=== PATIENT | female | born 1970 | race Caucasian/White ===

== ENCOUNTER 2019-09-20 04:04 | Inpatient (IN) | payer SELFPAY ==
[2019-09-20] VITALS (12 sets, daily range): BP systolic 105–193; BP diastolic 67–102
[~2019-09-20] VITALS: Ht 154.9 cm; Wt 68.0 kg
[~2019-09-20 04:04] MED LIST: IV NORMAL SALINE 1000ML BAG 1,000 ML IV ONE; MORPHINE SULFATE 2 MG/ML VIAL. IVP ONE; ONDANSETRON PF 4 MG/2 ML VIAL. IVP ONE
[2019-09-20] MEDS ORDERED: LIDOCAINE 1% Multi-Dose 20 ML VIAL. ONE (05:06)
[2019-09-20] MEDS ORDERED: ONDANSETRON PF 4 MG/2 ML VIAL. ONE ×2 (05:06→08:29)
[2019-09-20] MEDS ORDERED: MORPHINE SULFATE 4 MG/ML VIAL. ONE (05:07)
[2019-09-20] MEDS ORDERED: 0.9 % SOD CHL for STERILE FIELD 10 ML DISP.SYRIN. ONE (05:19)
[2019-09-20] MEDS ORDERED: LIDOCAINE 2% PF 5 ML VIAL. ONE (06:58)
[2019-09-20] MEDS ORDERED: PROPOFOL 20 ML IV ONE (06:58)
[2019-09-20] MEDS ORDERED: fentaNYL PF VIAL 100 MCG/2 ML VIAL ONE (06:59)
[2019-09-20] MEDS ORDERED: ceFAZolin SODIUM IV Push 1 GM VIAL. IVP ONE ×2 (07:52→08:00)
[2019-09-20] MEDS ORDERED: SEVOFLURANE 31 TO 60 MINUTES. IH ONE (07:52)
[2019-09-20] MEDS ORDERED: DEXAMETHASONE SOD PHOS 4 MG/ML VIAL ONE (07:54)
[2019-09-20] MEDS ORDERED: PHENYLEPHRINE in 0.9% NACL PF 1 MG/10 ML SYRINGE. IV ONE (07:58)
[2019-09-20] MEDS ORDERED: MULTIVIT INFUSN,ADULT 4,VIT K 10 ML, THIAMINE INJ 100 MG, FOLIC ACID INJ 1 MG in IV NOR... IV ONE (08:00)
[2019-09-20] MEDS ORDERED: HYDROmorphone 2 MG/ML VIAL ONE (08:28)
--- NOTE | 2019-09-20 09:30 | NUR ---
notified of high CIWA score. Orders given.
--- NOTE | 2019-09-20 09:45 | NUR ---
Patient not able to stay awake long enough to answer any of my questions or doctor's questions.
[2019-09-20 14:03] LABS: ALBUMIN 3.2 g/dL (3.4-5.0); CALCIUM 8.4 mg/dL (8.5-10.1)
[2019-09-20 14:04] LABS: CREATININE 1.2 mg/dL (0.6-1.0); DIRECT BILIRUBIN 0.1 mg/dL (0.0-0.2); GFR 47.7; POTASSIUM 3.6 mmol/L (3.5-5.1); TOTAL BILIRUBIN 0.4 mg/dL (0.2-1.0)
[2019-09-20 14:05] LABS: TOTAL PROTEIN 6.6 g/dL (6.4-8.2)
[2019-09-20 14:05] LABS: HEMATOCRIT 51.7 % (36.0-47.0); HEMOGLOBIN 17.5 g/dL (12.0-15.5); WHITE BLOOD COUNT 13.5 x10^3/uL (4.0-11.0)
[2019-09-20 14:06] LABS: BASO % 0 % (0-3); EOS % 0 % (0-3); LYMPH # 0.9 x10^3/uL (1.0-4.8); LYMPH % 7 % (24-48); MEAN CORPUSCULAR HEMOGLOBIN 31 pg (25-35); MEAN CORPUSCULAR HGB CONC 34 g/dL (31-37); MEAN CORPUSCULAR VOLUME 92 fL (79-100); MONO % 8 % (0-9); NEUT # 11.5 x10^3/uL (1.8-7.7); NEUT % 86 % (31-73); PLATELET COUNT 280 x10^3/uL (140-400); RED CELL DISTRIBUTION WIDTH 13.3 % (11.5-14.5)
[2019-09-20 14:07] LABS: D-DIMER 2.3 ug/mlFEU (0.00-0.50); PROTHROMBIN TIME PATIENT 13.1 SEC (11.7-14.0)
--- NOTE | 2019-09-20 14:09 | RAD ---
EXAM: Head CT without contrast. HISTORY: Fall. Loss of consciousness. TECHNIQUE: Computed tomographic images of the head were obtained without contrast. *One or more of the following individualized dose reduction techniques were utilized for this examination: 1. Automated exposure control. 2. Adjustment of the mA and/or kV according to patient size. 3. Use of iterative reconstruction technique. COMPARISON: None. FINDINGS: There is a tiny focus of hyperdensity within the right frontoparietal white matter which is likely artifactual. The imaging appearance does not favor acute hemorrhage. There is a chronic appearing left lamina appreciable fracture. The orbits and paranasal sinuses are otherwise unremarkable. The mastoid air cells are clear. The kruse-white matter differential pattern is intact. IMPRESSION: No convincing acute intracranial finding. Electronically signed by: Mary Anne Ibarra MD (09/20/2019 2:06 PM) [facility] [place]
--- NOTE | 2019-09-20 14:30 | RAD ---
EXAM: Right lower extremity venous Doppler sonogram. HISTORY: Pain and swelling. TECHNIQUE: Moe scale and color Doppler sonographic evaluation of the right lower extremity veins with spectral waveform analysis was performed. FINDINGS: There is normal color flow, normal compressibility and there are normal spectral waveforms in the common femoral, superficial femoral, popliteal, posterior tibial and greater saphenous veins. The peroneal veins are not well seen due to soft tissue edema. IMPRESSION: No Doppler evidence of lower extremity deep venous thrombosis. Electronically signed by: Mary Anne Ibarra MD (09/20/2019 2:27 PM) [facility] – [place], [place]
[2019-09-20] MEDS ORDERED: MORPHINE SULFATE 2 MG/ML VIAL. IV PRN (14:45)
[2019-09-20] MEDS ORDERED: IV NORMAL SALINE 1000ML BAG 1,000 ML IV ONE (14:45)
[2019-09-20] MEDS ORDERED: HALOPERIDOL LACTATE 5 MG/ML VIAL. IVP PRN (14:45)
[2019-09-20] MEDS ORDERED: LORazepam 1 MG TABLET PO PRN ×2 (14:45)
[2019-09-20] MEDS ORDERED: ACETAMINOPHEN 500 MG TABLET PO PRN ×2 (14:45)
[2019-09-20] MEDS ORDERED: ONDANSETRON PF 4 MG/2 ML VIAL. IVP PRN ×2 (14:45)
[2019-09-20] MEDS ORDERED: cloNIDine HCL 0.1 MG TABLET PO PRN (14:45)
[2019-09-20] MEDS ORDERED: diphenhydrAMINE 50 MG/ML VIAL IVP PRN ×2 (14:45)
--- NOTE | 2019-09-20 14:45 | RAD ---
EXAM: Right lower extremity arterial Doppler sonogram. HISTORY: Pain and swelling. TECHNIQUE: Moe scale and color Doppler sonographic evaluation of the right lower extremity arteries with spectral waveform analysis was performed. FINDINGS: There are biphasic and triphasic waveforms throughout the right lower extremity arteries, with exception of a monophasic waveform within the dorsalis pedis artery. There are normal peak systolic velocities throughout the lower extremity arteries. No occlusion is seen. IMPRESSION: Abnormal monophasic waveform within the right dorsalis pedis artery. This can be seen with hemodynamically significant proximal stenosis. No arterial occlusion is seen. Electronically signed by: Mary Anne Ibarra MD (09/20/2019 2:43 PM) [facility] [place]
--- NOTE | 2019-09-20 14:53 | RAD ---
EXAM: Chest, single view. HISTORY: Fall. COMPARISON: None. FINDINGS: A frontal view of the chest is obtained. There is no infiltrate, pleural effusion or pneumothorax. The heart is normal in size. IMPRESSION: No acute pulmonary finding. Electronically signed by: Mary Anne Ibarra MD (09/20/2019 2:50 PM) [facility] [place]
--- NOTE | 2019-09-20 14:54 | RAD ---
EXAM: Left hip, 2 views. HISTORY: Fall. COMPARISON: None. FINDINGS: 2 views of the left hip are obtained. There is no fracture, dislocation or subluxation. The femoral head is normal in consideration. There is a tiny os acetabulum. IMPRESSION: No acute osseous finding. Electronically signed by: Mary Anne Ibarra MD (09/20/2019 2:51 PM) [facility] – [place]
--- NOTE | 2019-09-20 14:56 | RAD ---
EXAM: Right tibia and fibula, 2 views; right ankle, 3 views. HISTORY: Fall. COMPARISON: None. FINDINGS: 2 views of the right tibia and fibula and 3 views of the right ankle are obtained. There is diffuse lateral predominant ankle soft tissue swelling. No fracture is seen. The ankle mortise is intact. There is no osteochondral lesion. IMPRESSION: Lateral predominant ankle soft tissue swelling. No acute osseous finding. Electronically signed by: Mary Anne Ibarra MD (09/20/2019 2:53 PM) [facility] [place]
--- NOTE | 2019-09-20 14:56 | RAD ---
EXAM: Right tibia and fibula, 2 views; right ankle, 3 views. HISTORY: Fall. COMPARISON: None. FINDINGS: 2 views of the right tibia and fibula and 3 views of the right ankle are obtained. There is diffuse lateral predominant ankle soft tissue swelling. No fracture is seen. The ankle mortise is intact. There is no osteochondral lesion. IMPRESSION: Lateral predominant ankle soft tissue swelling. No acute osseous finding. Electronically signed by: Mary Anne Ibarra MD (09/20/2019 2:53 PM) [facility] [place]
[2019-09-20] MEDS: IV NORMAL SALINE 1000ML BAG 1,000 ML IV SCH (15:00)
[2019-09-20] MEDS: MORPHINE SULFATE 2 MG/ML VIAL. IVP PRN (16:30)
--- NOTE | 2019-09-20 17:00 | NUR ---
Patient did wake up enough to eat a little, but asked for pain medication and immediately after pain medication could not stay awake long enough to answer admission questions. Clinical assessment can be done, but not subjective assessment.
--- NOTE | 2019-09-20 19:16 | NUR ---
Patient is now awake and talking on the phone. Night nurse said she would be willing to ask the admission questions we could not get answered earlier.
--- NOTE | 2019-09-20 22:02 | PDOC ---
PROGRESS NOTES Subjective Subjective Problems overnight: Much more awake and alert a few hours postoperatively. Pain reasonably controlled she does have some right leg soreness, no other complaints Objective Vital Signs Vital Signs Date Time Temp Pulse Resp B/P (MAP) Pulse Ox O2 Delivery O2 Flow Rate FiO2 09/20/19 19:00 97.7 94 16 105/67 (80) 95 97.7 09/20/19 17:00 Room Air 09/20/19 08:40 8 Physical Exam On examination her dressing from the lateral 4 compartment fasciotomy is clean dry intact compartments are soft to palpation. She cannot actively dorsiflex her foot. Sensation is significantly diminished to the first dorsal webspace but appears intact elsewhere on the foot distal pulses are palpable Labs Laboratory Tests Test 09/20/19 05:30 09/20/19 06:00 Sodium Level 137 mmol/L (136-145) Potassium Level 3.6 mmol/L (3.5-5.1) Chloride Level 102 mmol/L (98-107) Carbon Dioxide Level 23 mmol/L (21-32) Anion Gap 12 (6-14) Blood Urea Nitrogen 31 mg/dL (7-20) Creatinine 1.2 mg/dL (0.6-1.0) Estimated GFR (Cockcroft-Gault) 47.7 Glucose Level 129 mg/dL (70-99) Lactic Acid Level 2.6 mmol/L (0.4-2.0) Calcium Level 8.4 mg/dL (8.5-10.1) Total Bilirubin 0.4 mg/dL (0.2-1.0) Direct Bilirubin 0.1 mg/dL (0.0-0.2) Aspartate Amino Transf (AST/SGOT) 1943 U/L (15-37) Alanine Aminotransferase (ALT/SGPT) 495 U/L (14-59) Alkaline Phosphatase 129 U/L (46-116) Creatine Kinase 37331 U/L (26-192) Total Protein 6.6 g/dL (6.4-8.2) Albumin 3.2 g/dL (3.4-5.0) White Blood Count 13.5 x10^3/uL (4.0-11.0) Red Blood Count 5.60 x10^6/uL (3.50-5.40) Hemoglobin 17.5 g/dL (12.0-15.5) Hematocrit 51.7 % (36.0-47.0) Mean Corpuscular Volume 92 fL (79-100) Mean Corpuscular Hemoglobin 31 pg (25-35) Mean Corpuscular Hemoglobin Concent 34 g/dL (31-37) Red Cell Distribution Width 13.3 % (11.5-14.5) Platelet Count 280 x10^3/uL (140-400) Neutrophils (%) (Auto) 86 % (31-73) Lymphocytes (%) (Auto) 7 % (24-48) Monocytes (%) (Auto) 8 % (0-9) Eosinophils (%) (Auto) 0 % (0-3) Basophils (%) (Auto) 0 % (0-3) Neutrophils # (Auto) 11.5 x10^3/uL (1.8-7.7) Lymphocytes # (Auto) 0.9 x10^3/uL (1.0-4.8) Monocytes # (Auto) 1.0 x10^3/uL (0.0-1.1) Eosinophils # (Auto) 0.0 x10^3/uL (0.0-0.7) Basophils # (Auto) 0.0 x10^3/uL (0.0-0.2) Prothrombin Time 13.1 SEC (11.7-14.0) Prothromb Time International Ratio 1.0 (0.8-1.1) Activated Partial Thromboplast Time 33 SEC (24-38) D-Dimer (Flavia) 2.30 ug/mlFEU (0.00-0.50) Laboratory Tests Test 09/20/19 05:30 09/20/19 06:00 Sodium Level 137 mmol/L (136-145) Potassium Level 3.6 mmol/L (3.5-5.1) Chloride Level 102 mmol/L (98-107) Carbon Dioxide Level 23 mmol/L (21-32) Anion Gap 12 (6-14) Blood Urea Nitrogen 31 mg/dL (7-20) Creatinine 1.2 mg/dL (0.6-1.0) Estimated GFR (Cockcroft-Gault) 47.7 Glucose Level 129 mg/dL (70-99) Lactic Acid Level 2.6 mmol/L (0.4-2.0) Calcium Level 8.4 mg/dL (8.5-10.1) Total Bilirubin 0.4 mg/dL (0.2-1.0) Direct Bilirubin 0.1 mg/dL (0.0-0.2) Aspartate Amino Transf (AST/SGOT) 1943 U/L (15-37) Alanine Aminotransferase (ALT/SGPT) 495 U/L (14-59) Alkaline Phosphatase 129 U/L (46-116) Creatine Kinase 12771 U/L (26-192) Total Protein 6.6 g/dL (6.4-8.2) Albumin 3.2 g/dL (3.4-5.0) White Blood Count 13.5 x10^3/uL (4.0-11.0) Red Blood Count 5.60 x10^6/uL (3.50-5.40) Hemoglobin 17.5 g/dL (12.0-15.5) Hematocrit 51.7 % (36.0-47.0) Mean Corpuscular Volume 92 fL (79-100) Mean Corpuscular Hemoglobin 31 pg (25-35) Mean Corpuscular Hemoglobin Concent 34 g/dL (31-37) Red Cell Distribution Width 13.3 % (11.5-14.5) Platelet Count 280 x10^3/uL (140-400) Neutrophils (%) (Auto) 86 % (31-73) Lymphocytes (%) (Auto) 7 % (24-48) Monocytes (%) (Auto) 8 % (0-9) Eosinophils (%) (Auto) 0 % (0-3) Basophils (%) (Auto) 0 % (0-3) Neutrophils # (Auto) 11.5 x10^3/uL (1.8-7.7) Lymphocytes # (Auto) 0.9 x10^3/uL (1.0-4.8) Monocytes # (Auto) 1.0 x10^3/uL (0.0-1.1) Eosinophils # (Auto) 0.0 x10^3/uL (0.0-0.7) Basophils # (Auto) 0.0 x10^3/uL (0.0-0.2) Prothrombin Time 13.1 SEC (11.7-14.0) Prothromb Time International Ratio 1.0 (0.8-1.1) Activated Partial Thromboplast Time 33 SEC (24-38) D-Dimer (Flavia) 2.30 ug/mlFEU (0.00-0.50) Assessment Assessment POD# 0 right leg fasciotomy for compartment syndrome Plan Plan of Care Medical management per hospitalist. I had put her on 120 mL/h IV fluid and ordered CPK to manage her clinical rhabdomyolysis earlier handing that off to the hospitalist. I did talk with the patient about the fact that her nerve could be compromised with the significant pressure on it that muscle looked reasonably good after the release and that we will have to watch and see in terms of her nerve function returning and also possibly that she may need a skin graft as the swelling continues to resolve and may need an ankle foot orthosis for support temporarily or potentially permanently if she has ongoing peroneal nerve deficit as is present currently TIMUR VIEIRA MD Sep 20, 2019 22:01
--- NOTE | 2019-09-20 22:55 | CONS ---
DATE OF CONSULTATION: 09/20/2019 PREOPERATIVE EVALUATION ORTHOPEDIC CONSULTATION CHIEF COMPLAINT: Right leg pain and swelling. HISTORY OF PRESENT ILLNESS: Dictation ends here. TIMUR VIEIRA MD DR: TISH/leodan JOB#: [id number] / [id number]
[2019-09-21] MEDS: IV NORMAL SALINE 1000ML BAG 1,000 ML IV SCH (00:40)
[2019-09-21] MEDS: MORPHINE SULFATE 2 MG/ML VIAL. IVP PRN ×3 (00:41→12:10)
[2019-09-21 03:00] VITALS: BP 141/79
[2019-09-21 07:59] VITALS: BP 161/80
[2019-09-21] MEDS ORDERED: MULTIVIT INFUSN,ADULT 4,VIT K 10 ML, THIAMINE INJ 100 MG, FOLIC ACID INJ 1 MG in IV NOR... IV SCH (09:00)
[2019-09-21] MEDS: MULTIVIT INFUSN,ADULT 4,VIT K 10 ML, THIAMINE INJ 100 MG, FOLIC ACID INJ 1 MG in IV NOR... IV SCH (09:50)
--- NOTE | 2019-09-21 09:52 | PDOC ---
PROGRESS NOTES Subjective Subjective Problems overnight: Pain is not as bad as when she came in with her right leg. Feels like she should be able to move the foot but cannot dorsiflex. Leg is elevated and has some swelling Objective Vital Signs Vital Signs Date Time Temp Pulse Resp B/P (MAP) Pulse Ox O2 Delivery O2 Flow Rate FiO2 09/21/19 07:59 98.4 80 20 161/80 (107) 99 Room Air 98.4 09/20/19 20:00 8.0 Physical Exam On examination peroneal nerve motor function is absent she reports slight sensation but mostly paresthesia over the first dorsal webspace sensation is otherwise intact to the foot medially laterally and plantarly. Compartments are soft calf remains swollen along with the right foot but distal pulses are palpable Labs Laboratory Tests Test 09/20/19 05:30 09/20/19 06:00 Sodium Level 137 mmol/L (136-145) Potassium Level 3.6 mmol/L (3.5-5.1) Chloride Level 102 mmol/L (98-107) Carbon Dioxide Level 23 mmol/L (21-32) Anion Gap 12 (6-14) Blood Urea Nitrogen 31 mg/dL (7-20) Creatinine 1.2 mg/dL (0.6-1.0) Estimated GFR (Cockcroft-Gault) 47.7 Glucose Level 129 mg/dL (70-99) Lactic Acid Level 2.6 mmol/L (0.4-2.0) Calcium Level 8.4 mg/dL (8.5-10.1) Total Bilirubin 0.4 mg/dL (0.2-1.0) Direct Bilirubin 0.1 mg/dL (0.0-0.2) Aspartate Amino Transf (AST/SGOT) 1943 U/L (15-37) Alanine Aminotransferase (ALT/SGPT) 495 U/L (14-59) Alkaline Phosphatase 129 U/L (46-116) Creatine Kinase 14049 U/L (26-192) Total Protein 6.6 g/dL (6.4-8.2) Albumin 3.2 g/dL (3.4-5.0) White Blood Count 13.5 x10^3/uL (4.0-11.0) Red Blood Count 5.60 x10^6/uL (3.50-5.40) Hemoglobin 17.5 g/dL (12.0-15.5) Hematocrit 51.7 % (36.0-47.0) Mean Corpuscular Volume 92 fL (79-100) Mean Corpuscular Hemoglobin 31 pg (25-35) Mean Corpuscular Hemoglobin Concent 34 g/dL (31-37) Red Cell Distribution Width 13.3 % (11.5-14.5) Platelet Count 280 x10^3/uL (140-400) Neutrophils (%) (Auto) 86 % (31-73) Lymphocytes (%) (Auto) 7 % (24-48) Monocytes (%) (Auto) 8 % (0-9) Eosinophils (%) (Auto) 0 % (0-3) Basophils (%) (Auto) 0 % (0-3) Neutrophils # (Auto) 11.5 x10^3/uL (1.8-7.7) Lymphocytes # (Auto) 0.9 x10^3/uL (1.0-4.8) Monocytes # (Auto) 1.0 x10^3/uL (0.0-1.1) Eosinophils # (Auto) 0.0 x10^3/uL (0.0-0.7) Basophils # (Auto) 0.0 x10^3/uL (0.0-0.2) Prothrombin Time 13.1 SEC (11.7-14.0) Prothromb Time International Ratio 1.0 (0.8-1.1) Activated Partial Thromboplast Time 33 SEC (24-38) D-Dimer (Flavia) 2.30 ug/mlFEU (0.00-0.50) Assessment Assessment POD# 1 fasciotomy of right leg for compartment syndrome Plan Plan of Care I reviewed with her that her peroneal nerve function appears to be absent side from slight reported sensation over the first dorsal webspace. That is somewhat questionable as she really didn't answered about feeling the area and comparison to the left foot until she looked up and saw me touching her foot. I explained that the anterior compartment of her leg was most involved with observably the most blanching of the muscle and given the unknown time frame and presentation it would not be unusual that she may have a peroneal deficit. This could be permanent or it could resolve over time and may take an extended period of time. The important thing is that the pressures off the area currently and that we keep the leg elevated with some gentle motion to keep swelling down. We can get her up and around with crutches and if she does not get prompt recovery from the peroneal nerve from her dropfoot she may need an ankle foot orthosis I also explained that often the surgical site has to be closed over with a skin graft and that is possible once her swelling resolves and medical condition otherwise allows TIMUR VIEIRA MD Sep 21, 2019 09:52
--- NOTE | 2019-09-21 10:30 | PDOC1 ---
History and Physical Date of Admission Date of Admission 09/20/2019 Identification/Chief Complaint Chief Complaint I fell Source Source: Chart review, Patient History of Present Illness History of Present Illness Patient is a 49 year old female with no past medical history who unfortunately abuses alcohol today comes after being found down for unkown time, She was found to have [place] [id number]. She was evaluated promptly by orthopedic who took the patient emergently to the [facility] for treatment of her compartment syndrome. Patient is seen postoperatively. The patient does note seem to be in acute distress. She is a very poor historian and is not providing much details about her condition. Plan of care discussed with vocational rehab consultant and with nursing staff. No headache no chest pain, no palpitations no nausea or vomiting. Current Medications Current Medications Current Medications Medications (Trade) Dose Ordered Sig/Kristofer Start Time Stop Time Status Last Admin Dose Admin Acetaminophen (Tylenol) 500 mg PRN Q6HRS PRN 09/20/19 14:45 UNV Clonidine HCl (Catapres) 0.1 mg PRN Q1HR PRN 09/20/19 14:45 09/20/19 16:30 0.1 MG Diphenhydramine HCl (Benadryl) 25 mg PRN Q15MIN PRN 09/20/19 14:45 UNV Folic Acid (Folic Acid) 1 mg DAILY 09/25/19 09:00 UNV Haloperidol Lactate (Haldol Inj) 5 mg PRN Q4HRS PRN 09/20/19 14:45 Lorazepam (Ativan Inj) 4 mg PRN Q1HR PRN 09/20/19 14:45 UNV Lorazepam (Ativan) 8 mg PRN Q1HR PRN 09/20/19 14:45 Morphine Sulfate (Morphine Sulfate) 2 mg ONCE ONCE 09/20/19 04:00 09/20/19 16:58 DC Multivitamins (Thera M Plus) 1 tab DAILY 09/25/19 09:00 UNV Multivitamins 10 ml/Thiamine HCl 100 mg/Folic Acid 1 mg/Sodium Chloride 1,011.2 ml @ 1,000.088 mls/hr 1X ONCE 09/20/19 08:00 09/20/19 16:59 DC 09/20/19 08:00 1,000.088 MLS/HR Ondansetron HCl (Zofran) 4 mg ONCE ONCE 09/20/19 04:00 09/20/19 16:58 DC Sodium Chloride 1,000 ml @ 1,000 mls/hr Q1H ONCE 09/20/19 04:00 09/20/19 16:58 DC Thiamine HCl 100 mg/Dextrose 51 ml @ 100 mls/hr DAILY 09/25/19 09:00 09/29/19 09:31 UNV Allergies Allergies Allergies Coded Allergies Type Severity Reaction Last Updated Verified No Known Drug Allergies 09/20/19 No ROS Review of System CONSTITUTIONAL: No fever or chills EYES: No recent changes SKIN: No rash or itching CARDIOVASCULAR: No chest pain, syncope, palpitations, or edema RESPIRATORY: No SOB or cough GASTROINTESTINAL: No nausea, vomiting or abdominal pain NEUROLOGICAL: No headaches or weakness ENDOCRINE: No cold or heat intolerance GENITOURINARY: No urgency or frequency of urination MUSCULOSKELETAL: No back pain or joint pain LYMPHATICS: No enlarged lymph nodes PSYCHIATRIC: No anxiety or depression Physical Exam Physical Exam GEN.: No apparent distress. Alert and oriented. HEENT: Head is normocephalic, atraumatic NECK: Supple. LUNGS: Clear to auscultation. HEART: RRR, S1, S2 present. Peripheral pulses intact ABDOMEN: Soft, nontender. Positive bowel sounds. EXTREMITIES: Without any cyanosis. NEUROLOGIC: Normal speech, normal tone PSYCHIATRIC: Normal affect, normal mood. SKIN: No ulcerations Vitals Vitals Vital Signs Date Time Temp Pulse Resp B/P (MAP) Pulse Ox O2 Delivery O2 Flow Rate FiO2 09/21/19 07:59 98.4 80 20 161/80 (107) 99 Room Air 98.4 09/20/19 20:00 8.0 Labs Labs Laboratory Tests Test 09/20/19 05:30 09/20/19 06:00 Sodium Level 137 mmol/L (136-145) Potassium Level 3.6 mmol/L (3.5-5.1) Chloride Level 102 mmol/L (98-107) Carbon Dioxide Level 23 mmol/L (21-32) Anion Gap 12 (6-14) Blood Urea Nitrogen 31 mg/dL (7-20) Creatinine 1.2 mg/dL (0.6-1.0) Estimated GFR (Cockcroft-Gault) 47.7 Glucose Level 129 mg/dL (70-99) Lactic Acid Level 2.6 mmol/L (0.4-2.0) Calcium Level 8.4 mg/dL (8.5-10.1) Total Bilirubin 0.4 mg/dL (0.2-1.0) Direct Bilirubin 0.1 mg/dL (0.0-0.2) Aspartate Amino Transf (AST/SGOT) 1943 U/L (15-37) Alanine Aminotransferase (ALT/SGPT) 495 U/L (14-59) Alkaline Phosphatase 129 U/L (46-116) Creatine Kinase 83871 U/L (26-192) Total Protein 6.6 g/dL (6.4-8.2) Albumin 3.2 g/dL (3.4-5.0) White Blood Count 13.5 x10^3/uL (4.0-11.0) Red Blood Count 5.60 x10^6/uL (3.50-5.40) Hemoglobin 17.5 g/dL (12.0-15.5) Hematocrit 51.7 % (36.0-47.0) Mean Corpuscular Volume 92 fL (79-100) Mean Corpuscular Hemoglobin 31 pg (25-35) Mean Corpuscular Hemoglobin Concent 34 g/dL (31-37) Red Cell Distribution Width 13.3 % (11.5-14.5) Platelet Count 280 x10^3/uL (140-400) Neutrophils (%) (Auto) 86 % (31-73) Lymphocytes (%) (Auto) 7 % (24-48) Monocytes (%) (Auto) 8 % (0-9) Eosinophils (%) (Auto) 0 % (0-3) Basophils (%) (Auto) 0 % (0-3) Neutrophils # (Auto) 11.5 x10^3/uL (1.8-7.7) Lymphocytes # (Auto) 0.9 x10^3/uL (1.0-4.8) Monocytes # (Auto) 1.0 x10^3/uL (0.0-1.1) Eosinophils # (Auto) 0.0 x10^3/uL (0.0-0.7) Basophils # (Auto) 0.0 x10^3/uL (0.0-0.2) Prothrombin Time 13.1 SEC (11.7-14.0) Prothromb Time International Ratio 1.0 (0.8-1.1) Activated Partial Thromboplast Time 33 SEC (24-38) D-Dimer (Flavia) 2.30 ug/mlFEU (0.00-0.50) VTE Prophylaxis Ordered VTE Prophylaxis Devices: No VTE Pharmacological Prophylaxi: Yes Assessment/Plan Assessment/Plan Compartment syndrome status post surgical decompression Alcohol abuse Leukoctosis secondary to hemoconcentration most likely Erythrocytosis secondary to severe dehydration Acute renal failure secondary to rhabdomyolisis Transaminitis. Shock liver? Lactic acidosis Plan: will provide bicarbonate drip for rhabdo may need nephro consult follow recommendations from ortho pain management CIWA protocol DVT prophylaxis: heparin when approved by vocational rehab consultant. Further recommendations based on clinical course. ISMAEL MILLER MD Sep 21, 2019 10:30
--- NOTE | 2019-09-21 10:51 | PDOC ---
PROGRESS NOTES Chief Complaint Chief Complaint Compartment syndrome status post surgical decompression Alcohol abuse disorder, concern for withdrawl, Leukoctosis Erythrocytosis from dehydration Acute renal failure secondary to rhabdomyolisis Transaminitis. poss rhabdo or etOH abuse, Lactic acidosis History of Present Illness History of Present Illness surgery went well with Dr. Shook yesterday, she will prob need skin graft mauro few days, cont IV fluid, check CK daily until close to 1999 follow recommendations from ortho pain management CIWA protocol DVT prophylaxis: heparin when approved by oim consultant. Further recommendations based on clinical course. Vitals Vitals Vital Signs Date Time Temp Pulse Resp B/P (MAP) Pulse Ox O2 Delivery O2 Flow Rate FiO2 09/21/19 07:59 98.4 80 20 161/80 (107) 99 Room Air 98.4 09/20/19 20:00 8.0 Physical Exam Physical Exam appears hung-over General: Alert, Oriented X3, Cooperative, mild distress Heart: Regular rate, Normal S1, Normal S2 Skin: No rashes, No breakdown Review of Systems Review of Systems lethagic, leg pain, some nausea, Comment Review of Relevant I have reviewed the following items jacob (where applicable) has been applied. Labs Laboratory Tests Test 09/20/19 05:30 09/20/19 06:00 Sodium Level 137 mmol/L (136-145) Potassium Level 3.6 mmol/L (3.5-5.1) Chloride Level 102 mmol/L (98-107) Carbon Dioxide Level 23 mmol/L (21-32) Anion Gap 12 (6-14) Blood Urea Nitrogen 31 mg/dL (7-20) Creatinine 1.2 mg/dL (0.6-1.0) Estimated GFR (Cockcroft-Gault) 47.7 Glucose Level 129 mg/dL (70-99) Lactic Acid Level 2.6 mmol/L (0.4-2.0) Calcium Level 8.4 mg/dL (8.5-10.1) Total Bilirubin 0.4 mg/dL (0.2-1.0) Direct Bilirubin 0.1 mg/dL (0.0-0.2) Aspartate Amino Transf (AST/SGOT) 1943 U/L (15-37) Alanine Aminotransferase (ALT/SGPT) 495 U/L (14-59) Alkaline Phosphatase 129 U/L (46-116) Creatine Kinase 03444 U/L (26-192) Total Protein 6.6 g/dL (6.4-8.2) Albumin 3.2 g/dL (3.4-5.0) White Blood Count 13.5 x10^3/uL (4.0-11.0) Red Blood Count 5.60 x10^6/uL (3.50-5.40) Hemoglobin 17.5 g/dL (12.0-15.5) Hematocrit 51.7 % (36.0-47.0) Mean Corpuscular Volume 92 fL (79-100) Mean Corpuscular Hemoglobin 31 pg (25-35) Mean Corpuscular Hemoglobin Concent 34 g/dL (31-37) Red Cell Distribution Width 13.3 % (11.5-14.5) Platelet Count 280 x10^3/uL (140-400) Neutrophils (%) (Auto) 86 % (31-73) Lymphocytes (%) (Auto) 7 % (24-48) Monocytes (%) (Auto) 8 % (0-9) Eosinophils (%) (Auto) 0 % (0-3) Basophils (%) (Auto) 0 % (0-3) Neutrophils # (Auto) 11.5 x10^3/uL (1.8-7.7) Lymphocytes # (Auto) 0.9 x10^3/uL (1.0-4.8) Monocytes # (Auto) 1.0 x10^3/uL (0.0-1.1) Eosinophils # (Auto) 0.0 x10^3/uL (0.0-0.7) Basophils # (Auto) 0.0 x10^3/uL (0.0-0.2) Prothrombin Time 13.1 SEC (11.7-14.0) Prothromb Time International Ratio 1.0 (0.8-1.1) Activated Partial Thromboplast Time 33 SEC (24-38) D-Dimer (Flavia) 2.30 ug/mlFEU (0.00-0.50) Medications Current Medications Morphine Sulfate (Morphine Sulfate) 2 mg PRN Q3HRS PRN IVP PAIN SEVERE Last administered on 09/21/19at 07:33; Start 09/20/19 at 14:45 Acetaminophen (Tylenol) 500 mg PRN Q6HRS PRN PO MILD PAIN / TEMP; Start 09/20/19 at 14:45 Ondansetron HCl (Zofran) 4 mg PRN Q6HRS PRN IVP NAUSEA/VOMITING; Start 09/20/19 at 14:45 Sodium Chloride 1,000 ml @ 125 mls/hr Q8H IV Last administered on 09/21/19at 00:40; Start 09/20/19 at 15:00; Stop 09/21/19 at 10:22; Status DC Multivitamins 10 ml/Thiamine HCl 100 mg/Folic Acid 1 mg/Sodium Chloride 1,011.2 ml @ 1,000.088 mls/hr DAILY IV Last administered on 09/21/19at 09:50; Start 09/21/19 at 09:00; Stop 09/25/19 at 10:01 Lorazepam (Ativan) 4 mg PRN Q1HR PRN PO For CIWA 8-14; Start 09/20/19 at 14:45 Lorazepam (Ativan) 8 mg PRN Q1HR PRN PO For CIWA 15 or greater; Start 09/20/19 at 14:45 Lorazepam (Ativan Inj) 2 mg PRN Q1HR PRN IV For CIWA 8-14 Last administered on 09/20/19at 16:30; Start 09/20/19 at 14:45 Lorazepam (Ativan Inj) 4 mg PRN Q1HR PRN IV For CIWA 15 or greater; Start 09/20/19 at 14:45 Haloperidol Lactate (Haldol Inj) 5 mg PRN Q4HRS PRN IVP Hallucinatns, Confusn,Delirium; Start 09/20/19 at 14:45 Diphenhydramine HCl (Benadryl) 25 mg PRN Q15MIN PRN IVP EPS symptoms 2'Haldol admin; Start 09/20/19 at 14:45 Clonidine HCl (Catapres) 0.1 mg PRN Q1HR PRN PO SBP > 180 or DBP > 100, MRX3 Last administered on 09/20/19at 16:30; Start 09/20/19 at 14:45 Lorazepam (Ativan Inj) 2 mg PRN Q15MIN PRN IV SEE COMMENTS; Start 09/20/19 at 14:45; Stop 09/21/19 at 10:46; Status DC Multivitamins 10 ml/Thiamine HCl 100 mg/Folic Acid 1 mg/Sodium Chloride 1,011.2 ml @ 100 mls/ hr DAILY IV ; Start 09/21/19 at 09:00; Stop 09/25/19 at 19:07; Status UNV Multivitamins (Thera M Plus) 1 tab DAILY PO ; Start 09/25/19 at 09:00; Status UNV Folic Acid (Folic Acid) 1 mg DAILY PO ; Start 09/25/19 at 09:00; Status UNV Thiamine HCl 100 mg/Dextrose 51 ml @ 100 mls/hr DAILY IV ; Start 09/25/19 at 09:00; Stop 09/29/19 at 09:31; Status UNV Lorazepam (Ativan Inj) 2 mg PRN Q1HR PRN IV For CIWA 8-14; Start 09/20/19 at 14:45; Status UNV Lorazepam (Ativan Inj) 4 mg PRN Q1HR PRN IV For CIWA 15 or greater; Start 09/20/19 at 14:45; Status UNV Diphenhydramine HCl (Benadryl) 25 mg PRN Q15MIN PRN IVP EPS symptoms 2'Haldol admin; Start 09/20/19 at 14:45; Status UNV Morphine Sulfate (Morphine Sulfate) 2 mg PRN Q3HRS PRN IV PAIN; Start 09/20/19 at 14:45; Status UNV Acetaminophen (Tylenol) 500 mg PRN Q6HRS PRN PO MILD PAIN / TEMP; Start 09/20/19 at 14:45; Status UNV Ondansetron HCl (Zofran) 4 mg PRN Q6HRS PRN IVP NAUSEA/VOMITING; Start 09/20/19 at 14:45; Status UNV Sodium Chloride 1,000 ml @ 125 mls/hr 1X ONCE IV ; Start 09/20/19 at 14:45; Stop 09/20/19 at 14:57; Status DC Multivitamins 10 ml/Thiamine HCl 100 mg/Folic Acid 1 mg/Sodium Chloride 1,011.2 ml @ 1,000.088 mls/hr 1X ONCE IV Last administered on 09/20/19at 08:00; Start 09/20/19 at 08:00; Stop 09/20/19 at 16:59; Status DC Morphine Sulfate (Morphine Sulfate) 2 mg ONCE ONCE IVP ; Start 09/20/19 at 04:00; Stop 09/20/19 at 16:58; Status DC Ondansetron HCl (Zofran) 4 mg ONCE ONCE IVP ; Start 09/20/19 at 04:00; Stop 09/20/19 at 16:58; Status DC Sodium Chloride 1,000 ml @ 1,000 mls/hr Q1H ONCE IV ; Start 09/20/19 at 04:00; Stop 09/20/19 at 16:58; Status DC Sodium Bicarbonate 150 meq/Sterile Water 1,150 ml @ 200 mls/hr Q5H45M IV ; Start 09/21/19 at 10:45 Oxycodone/ Acetaminophen (Percocet 5/325) 1 tab PRN Q4HRS PRN PO PAIN; Start 09/21/19 at 10:45 Vitals/I & O Vital Sign - Last 24 Hours 09/20/19 09/20/19 09/20/19 09/20/19 11:00 11:30 12:30 13:30 Pulse 70 72 79 84 B/P (MAP) 170/102 (124) 189/93 (125) 193/94 (127) 161/93 (115) Pulse Ox 98 97 97 96 O2 Delivery Room Air Room Air Room Air Room Air 09/20/19 09/20/19 09/20/19 09/20/19 15:00 16:30 16:30 17:00 Pulse 86 86 Resp 20 18 B/P (MAP) 146/78 (100) 189/93 Pulse Ox 96 O2 Delivery Room Air Room Air Room Air 09/20/19 09/20/19 09/20/19 09/21/19 19:00 20:00 23:00 00:41 Temp 97.7 98.0 97.7 98.0 Pulse 94 85 Resp 16 18 19 B/P (MAP) 105/67 (80) 130/77 (94) Pulse Ox 95 93 95 O2 Delivery Room Air Room Air O2 Flow Rate 8.0 09/21/19 09/21/19 09/21/19 09/21/19 01:32 03:00 07:33 07:51 Temp 98.5 98.5 Pulse 77 Resp 16 16 20 B/P (MAP) 141/79 (99) Pulse Ox 95 91 O2 Delivery Room Air Room Air Room Air 09/21/19 07:59 Temp 98.4 98.4 Pulse 80 Resp 20 B/P (MAP) 161/80 (107) Pulse Ox 99 O2 Delivery Room Air Intake and Output 09/20/19 09/20/19 09/21/19 15:00 23:00 07:00 Intake Total 360 ml 240 ml Output Total 10 ml 800 ml 200 ml Balance -10 ml -440 ml 40 ml TAI VENTURA MD Sep 21, 2019 10:51
[2019-09-21 11:59] VITALS: BP 149/76
[2019-09-21] MEDS: oxyCODONE/APAP 5/325 1 TAB TABLET PO PRN ×3 (12:10→23:21)
[2019-09-21] MEDS: SODIUM BICARBONATE VIAL 150 MEQ in IV STERILE WATER 1,000 ML IV SCH ×3 (12:11→23:20)
[2019-09-21 14:19] LABS: BASO % 0 % (0-3); EOS % 0 % (0-3); HEMATOCRIT 38.5 % (36.0-47.0); HEMOGLOBIN 13.1 g/dL (12.0-15.5); LYMPH # 1.2 x10^3/uL (1.0-4.8); LYMPH % 13 % (24-48); MEAN CORPUSCULAR HEMOGLOBIN 31 pg (25-35); MEAN CORPUSCULAR HGB CONC 34 g/dL (31-37); MEAN CORPUSCULAR VOLUME 92 fL (79-100); MONO # 0.9 x10^3/uL (0.0-1.1); MONO % 9 % (0-9); NEUT # 7.2 x10^3/uL (1.8-7.7); NEUT % 78 % (31-73); PLATELET COUNT 198 x10^3/uL (140-400); RED BLOOD COUNT 4.17 x10^6/uL (3.50-5.40); RED CELL DISTRIBUTION WIDTH 13.3 % (11.5-14.5); WHITE BLOOD COUNT 9.2 x10^3/uL (4.0-11.0)
[2019-09-21 14:53] LABS: ALBUMIN 2.3 g/dL (3.4-5.0); ALBUMIN/GLOBULIN RATIO 0.7 (1.0-1.7); CALCIUM 8.3 mg/dL (8.5-10.1); CREATININE 1.4 mg/dL (0.6-1.0); TOTAL BILIRUBIN 0.4 mg/dL (0.2-1.0); TOTAL PROTEIN 5.5 g/dL (6.4-8.2)
[2019-09-21 15:59] VITALS: BP 126/63
--- NOTE | 2019-09-21 17:11 | NUR ---
consult called in to Dr Pereira for rhabdomyolysis
[2019-09-21 19:30] VITALS: BP 106/53
[2019-09-21 23:00] VITALS: BP 155/81
--- NOTE | 2019-09-21 23:58 | CONS ---
DATE OF CONSULTATION: 09/20/2019 Apparently, my original documentation of orthopedic consultation was cut off. REQUESTING PHYSICIAN: [facility]. REASON FOR CONSULTATION: Right leg compartment syndrome. HISTORY OF PRESENT ILLNESS: The patient is a 49-year-old female who presented to the Emergency Department around 4:00 a.m. and apparently was intoxicated and had passed out and was down for an unknown period of time. According to her , he had left for work about 8 in the morning on Sunday and found her and she was brought into the Emergency Department about 20 hours later, again, but down for an unknown period of time, but reported that she could not feel her leg, it was very painful and swollen and was found to have extremely elevated creatine kinase, still remained intoxicated and I did obtain some limited history from herself and her trying to piece together what had happened as she had very little recollection. PAST MEDICAL HISTORY: She denies any significant past medical history. PAST SURGICAL HISTORY: Significant for a partial hysterectomy and one side of her tubes were removed. FAMILY HISTORY: Unknown. ALLERGIES: She has no known drug allergies. MEDICATIONS: List reviewed. REVIEW OF SYSTEMS: Very limited due to her intoxicated state, but she denies any head injury, visual changes, neck or back pain. She does have focal weakness in the left leg and really cannot move her foot and sensory exam is unreliable, although it seems very decreased over the lateral leg and first dorsal web space on the right compared to the left, where she appears to react normally. PHYSICAL EXAMINATION: GENERAL: On examination, this is again 49-year-old female in moderate distress due to her right leg pain. HEENT: Appears atraumatic, normocephalic. MUSCULOSKELETAL: No neck or back pain on palpation. She has good upper extremity range of motion of shoulder, elbow and wrist bilaterally with no upper extremity swelling, instability or signs of trauma. She can squeeze my fingers and extend all the fingers, so is grossly neurologically intact. On examination of the lower extremities, however, she has a very tense right leg, particularly tender over the anterior and lateral compartments, also somewhat less posteriorly. She does not seem to be able to plantar dorsiflex her foot on the right side, actively and passively, has extreme pain when attempting to do so. Her pulses are monophasic per Doppler on the right side and normal triphasic on the left. She appears to have normal alignment, stability of bilateral hips, knees and ankles with no joint effusion present. She does have some moderate swelling in her right foot, but clearly pain way out of proportion on any passive range of motion in the area of the calf and appears to be radiating distally on the right leg. Compartment pressures were greater than 30 mmHg in the anterior and lateral compartments measured by the Emergency Department physician. IMAGING: X-rays of the tibia and fibula show no evidence of fracture. IMPRESSION: Right leg compartment syndrome. TREATMENT PLAN: I went over with the patient and on the phone with her the rationale for emergent operative treatment. She has unfortunately been down on the floor for an unknown period of time. She does have some findings of rhabdomyolysis with increased creatine kinase numbers, which are concerning for muscle breakdown. I explained that if the compartment pressures are too high, they can certainly damage anything that get the blood supply within the compartment including the muscle, which may not be perfused the nerves that go within and she does appear to have a nerve deficit of the peroneal nerve. I also explained that we typically surgically emergently release the compartments to bring the pressure down and allow the muscle to be better perfused and I am unsure how she will respond to this because she has been down for an unknown period of time and ideally intervention should be carried out as soon as possible with this condition because additional lack of blood supply to the muscle can result in the muscle dying, nerves being damaged and it is hard to say whether they will come back and it may take a long time. She could develop infection, possibility of nerve or blood vessel damage with the surgery itself, infection and likely will need an additional procedure for closure or more likely skin grafting once this area is opened up and the extent to which she recovers is really uncertain based on how the body can react and heal itself, especially nerve vela. She and her agreed to proceed with surgical evaluation and treatment and she was taken emergently to the operating room for planned fasciotomy of the right leg. TIMUR VIEIRA MD DR: TISH/leodan JOB#: [id number] / [id number]
[2019-09-22 03:20] VITALS: BP 135/75
[2019-09-22 03:26] LABS: CREATININE 1.3 mg/dL (0.6-1.0); GFR 43.5; POTASSIUM 3.5 mmol/L (3.5-5.1)
[2019-09-22 03:54] LABS: BASO % 0 % (0-3); EOS % 0 % (0-3); HEMATOCRIT 35.5 % (36.0-47.0); LYMPH # 1.7 x10^3/uL (1.0-4.8); LYMPH % 19 % (24-48); MEAN CORPUSCULAR HEMOGLOBIN 31 pg (25-35); MEAN CORPUSCULAR HGB CONC 34 g/dL (31-37); MEAN CORPUSCULAR VOLUME 92 fL (79-100); MONO # 0.6 x10^3/uL (0.0-1.1); MONO % 7 % (0-9); NEUT # 6.5 x10^3/uL (1.8-7.7); NEUT % 73 % (31-73); PLATELET COUNT 200 x10^3/uL (140-400); RED BLOOD COUNT 3.87 x10^6/uL (3.50-5.40); RED CELL DISTRIBUTION WIDTH 13.2 % (11.5-14.5)
[2019-09-22] MEDS: SODIUM BICARBONATE VIAL 150 MEQ in IV STERILE WATER 1,000 ML IV SCH ×3 (05:00→20:10)
[2019-09-22] MEDS: oxyCODONE/APAP 5/325 1 TAB TABLET PO PRN ×4 (06:04→20:07)
[2019-09-22 07:00] VITALS: BP 119/63
--- NOTE | 2019-09-22 08:17 | OP ---
DATE OF SURGERY: 09/20/2019 ORTHOPEDIC OPERATIVE NOTE PREOPERATIVE DIAGNOSIS: Compartment syndrome, right leg. POSTOPERATIVE DIAGNOSIS: Compartment syndrome, right leg. PROCEDURE: Right leg 4-compartment fasciotomy. SURGEON: Kiko Shook MD ANESTHESIA: General. ESTIMATED BLOOD LOSS: 10 mL. COMPLICATIONS: None. 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 She presented to the Emergency Department around 4 in the morning. I received a call somewhat after 5:00 that she was found down on the ground for an unknown amount of time. The right leg was swollen, painful to passive range of motion. She had some paresthesias. Her pulses were dopplerable, but monophasic and compartment pressures anterior and lateral compartment were measured at greater than 30 mmHg with the Stacie device in the Emergency Department. I had gone over with the patient and also with her since she was somewhat impaired that compartment syndrome is an emergency, it can cause further damage to the muscles and that ideally surgery is performed emergently to take the pressure off and prevent further nerve, muscle or other tissue damage from the resulting lack of blood supply. I told her and her that it is possible due to her unknown length of time that the damage could already be done and I cannot guarantee that she is going to retain function of her muscles or nerves, but our best alternative is really to get the pressure off the area and furthermore the only way the procedure would not be indicated as if the time of onset would be more than 36 hours, which is not thought to be the case based on her limited information. I did indicate to her that with opening the skin, there is certainly a risk of infection, nerve or blood vessel damage and that often an additional procedure is required for skin grafting to close up the area as the area spreads open. All her and her 's questions were answered. They agreed to proceed with surgical evaluation and treatment, which is scheduled emergently. OPERATIVE TECHNIQUE: The patient was identified, procedure verified, patient placed in the supine position on the operating table. After adequate amounts of general anesthesia were administered, the right lower extremity was prepped and draped in standard sterile fashion and after timeout was performed, patient and procedure identified and verified. The calf was noted to be very tense and an incision was made laterally at the mid part of the calf in line with a line from the head of the fibula to the lateral malleolus. Bleeding points were controlled by electrocautery. Subcutaneous dissection to identify the muscle fascia and the anterior compartment was fasciotomized 1 cm anterior to the intermuscular septum and the muscle was noted to be pale and poorly vascularized, but rapidly pinked up with the release. A fasciotomy of the lateral compartment was performed about 1 cm posterior to the intermuscular septum. The superficial posterior compartment was entered from the lateral compartment and fasciotomized and the deep posterior compartment was reached by dissecting from the posterior aspect of the fibula and releasing the compartment from the interosseous membrane. All compartments were soft after the release procedure. Thorough irrigation was carried out with normal saline solution. Pulses were palpable and a vessel loop was stable between the skin edges in an alternating fashion. Xeroform gauze followed by sterile dressings and an Lauri wrap were placed. The patient was returned to recovery room in stable condition having tolerated the procedure well. KIKO SHOOK MD DR: TISH/leodan JOB#: [id number] / [id number]
--- NOTE | 2019-09-22 08:20 | PDOC ---
PROGRESS NOTES Chief Complaint Chief Complaint Compartment syndrome status post surgical decompression Alcohol abuse disorder, concern for withdrawl, Leukoctosis Erythrocytosis from dehydration Acute renal failure secondary to rhabdomyolisis Transaminitis. poss rhabdo or etOH abuse, Lactic acidosis History of Present Illness History of Present Illness Ms Calderón is a 49 year old female with no past medical history who unfortunately abuses alcohol today admitted 09/20/2019 after being found down for unknown time, [place] [address] and was unable to feel her right leg which was swollen and tense. No headache no chest pain, no palpitations no nausea or vomiting. S/p Right lower leg fasciotomy with Dr. Shook 09/20/2019. 09/20: CPK 65283. LFTs up She is asking for a cigarette today. Cr stable at 1.3. CK and LFTs pending. She tells me she thinks she has some sensation back in her toes. No CP or SOB. Plan: cont IV fluid, check CK daily until close to 1999 follow recommendations from ortho pain management CIWA protocol - will add gabapentin per new recommendations DVT prophylaxis: heparin when approved by road consultant. Nicotine patch Further recommendations based on clinical course. Vitals Vitals Vital Signs Date Time Temp Pulse Resp B/P (MAP) Pulse Ox O2 Delivery O2 Flow Rate FiO2 09/22/19 06:04 16 94 Room Air 09/22/19 03:20 98.2 84 135/75 (95) 98.2 Physical Exam General: Alert, Oriented X3, Cooperative, mild distress Heart: Regular rate, Normal S1, Normal S2 Skin: No rashes, No breakdown Labs LABS Laboratory Tests Test 09/21/19 13:45 09/22/19 02:40 White Blood Count 9.2 x10^3/uL (4.0-11.0) 9.0 x10^3/uL (4.0-11.0) Red Blood Count 4.17 x10^6/uL (3.50-5.40) 3.87 x10^6/uL (3.50-5.40) Hemoglobin 13.1 g/dL (12.0-15.5) 12.0 g/dL (12.0-15.5) Hematocrit 38.5 % (36.0-47.0) 35.5 % (36.0-47.0) Mean Corpuscular Volume 92 fL (79-100) 92 fL (79-100) Mean Corpuscular Hemoglobin 31 pg (25-35) 31 pg (25-35) Mean Corpuscular Hemoglobin Concent 34 g/dL (31-37) 34 g/dL (31-37) Red Cell Distribution Width 13.3 % (11.5-14.5) 13.2 % (11.5-14.5) Platelet Count 198 x10^3/uL (140-400) 200 x10^3/uL (140-400) Neutrophils (%) (Auto) 78 % (31-73) 73 % (31-73) Lymphocytes (%) (Auto) 13 % (24-48) 19 % (24-48) Monocytes (%) (Auto) 9 % (0-9) 7 % (0-9) Eosinophils (%) (Auto) 0 % (0-3) 0 % (0-3) Basophils (%) (Auto) 0 % (0-3) 0 % (0-3) Neutrophils # (Auto) 7.2 x10^3/uL (1.8-7.7) 6.5 x10^3/uL (1.8-7.7) Lymphocytes # (Auto) 1.2 x10^3/uL (1.0-4.8) 1.7 x10^3/uL (1.0-4.8) Monocytes # (Auto) 0.9 x10^3/uL (0.0-1.1) 0.6 x10^3/uL (0.0-1.1) Eosinophils # (Auto) 0.0 x10^3/uL (0.0-0.7) 0.0 x10^3/uL (0.0-0.7) Basophils # (Auto) 0.0 x10^3/uL (0.0-0.2) 0.0 x10^3/uL (0.0-0.2) Sodium Level 140 mmol/L (136-145) 141 mmol/L (136-145) Potassium Level 4.0 mmol/L (3.5-5.1) 3.5 mmol/L (3.5-5.1) Chloride Level 106 mmol/L (98-107) 104 mmol/L (98-107) Carbon Dioxide Level 27 mmol/L (21-32) 37 mmol/L (21-32) Anion Gap 7 (6-14) 0 (6-14) Blood Urea Nitrogen 27 mg/dL (7-20) 18 mg/dL (7-20) Creatinine 1.4 mg/dL (0.6-1.0) 1.3 mg/dL (0.6-1.0) Estimated GFR (Cockcroft-Gault) 40.0 43.5 BUN/Creatinine Ratio 19 (6-20) Glucose Level 104 mg/dL (70-99) 103 mg/dL (70-99) Calcium Level 8.3 mg/dL (8.5-10.1) 8.0 mg/dL (8.5-10.1) Total Bilirubin 0.4 mg/dL (0.2-1.0) Aspartate Amino Transf (AST/SGOT) 896 U/L (15-37) Alanine Aminotransferase (ALT/SGPT) 343 U/L (14-59) Alkaline Phosphatase 95 U/L (46-116) Creatine Kinase 00584 U/L (26-192) Total Protein 5.5 g/dL (6.4-8.2) Albumin 2.3 g/dL (3.4-5.0) Albumin/Globulin Ratio 0.7 (1.0-1.7) Comment Review of Relevant I have reviewed the following items jacob (where applicable) has been applied. Labs Laboratory Tests Test 09/21/19 13:45 09/22/19 02:40 White Blood Count 9.2 x10^3/uL (4.0-11.0) 9.0 x10^3/uL (4.0-11.0) Red Blood Count 4.17 x10^6/uL (3.50-5.40) 3.87 x10^6/uL (3.50-5.40) Hemoglobin 13.1 g/dL (12.0-15.5) 12.0 g/dL (12.0-15.5) Hematocrit 38.5 % (36.0-47.0) 35.5 % (36.0-47.0) Mean Corpuscular Volume 92 fL (79-100) 92 fL (79-100) Mean Corpuscular Hemoglobin 31 pg (25-35) 31 pg (25-35) Mean Corpuscular Hemoglobin Concent 34 g/dL (31-37) 34 g/dL (31-37) Red Cell Distribution Width 13.3 % (11.5-14.5) 13.2 % (11.5-14.5) Platelet Count 198 x10^3/uL (140-400) 200 x10^3/uL (140-400) Neutrophils (%) (Auto) 78 % (31-73) 73 % (31-73) Lymphocytes (%) (Auto) 13 % (24-48) 19 % (24-48) Monocytes (%) (Auto) 9 % (0-9) 7 % (0-9) Eosinophils (%) (Auto) 0 % (0-3) 0 % (0-3) Basophils (%) (Auto) 0 % (0-3) 0 % (0-3) Neutrophils # (Auto) 7.2 x10^3/uL (1.8-7.7) 6.5 x10^3/uL (1.8-7.7) Lymphocytes # (Auto) 1.2 x10^3/uL (1.0-4.8) 1.7 x10^3/uL (1.0-4.8) Monocytes # (Auto) 0.9 x10^3/uL (0.0-1.1) 0.6 x10^3/uL (0.0-1.1) Eosinophils # (Auto) 0.0 x10^3/uL (0.0-0.7) 0.0 x10^3/uL (0.0-0.7) Basophils # (Auto) 0.0 x10^3/uL (0.0-0.2) 0.0 x10^3/uL (0.0-0.2) Sodium Level 140 mmol/L (136-145) 141 mmol/L (136-145) Potassium Level 4.0 mmol/L (3.5-5.1) 3.5 mmol/L (3.5-5.1) Chloride Level 106 mmol/L (98-107) 104 mmol/L (98-107) Carbon Dioxide Level 27 mmol/L (21-32) 37 mmol/L (21-32) Anion Gap 7 (6-14) 0 (6-14) Blood Urea Nitrogen 27 mg/dL (7-20) 18 mg/dL (7-20) Creatinine 1.4 mg/dL (0.6-1.0) 1.3 mg/dL (0.6-1.0) Estimated GFR (Cockcroft-Gault) 40.0 43.5 BUN/Creatinine Ratio 19 (6-20) Glucose Level 104 mg/dL (70-99) 103 mg/dL (70-99) Calcium Level 8.3 mg/dL (8.5-10.1) 8.0 mg/dL (8.5-10.1) Total Bilirubin 0.4 mg/dL (0.2-1.0) Aspartate Amino Transf (AST/SGOT) 896 U/L (15-37) Alanine Aminotransferase (ALT/SGPT) 343 U/L (14-59) Alkaline Phosphatase 95 U/L (46-116) Creatine Kinase 19881 U/L (26-192) Total Protein 5.5 g/dL (6.4-8.2) Albumin 2.3 g/dL (3.4-5.0) Albumin/Globulin Ratio 0.7 (1.0-1.7) Laboratory Tests Test 09/21/19 13:45 09/22/19 02:40 White Blood Count 9.2 x10^3/uL (4.0-11.0) 9.0 x10^3/uL (4.0-11.0) Red Blood Count 4.17 x10^6/uL (3.50-5.40) 3.87 x10^6/uL (3.50-5.40) Hemoglobin 13.1 g/dL (12.0-15.5) 12.0 g/dL (12.0-15.5) Hematocrit 38.5 % (36.0-47.0) 35.5 % (36.0-47.0) Mean Corpuscular Volume 92 fL (79-100) 92 fL (79-100) Mean Corpuscular Hemoglobin 31 pg (25-35) 31 pg (25-35) Mean Corpuscular Hemoglobin Concent 34 g/dL (31-37) 34 g/dL (31-37) Red Cell Distribution Width 13.3 % (11.5-14.5) 13.2 % (11.5-14.5) Platelet Count 198 x10^3/uL (140-400) 200 x10^3/uL (140-400) Neutrophils (%) (Auto) 78 % (31-73) 73 % (31-73) Lymphocytes (%) (Auto) 13 % (24-48) 19 % (24-48) Monocytes (%) (Auto) 9 % (0-9) 7 % (0-9) Eosinophils (%) (Auto) 0 % (0-3) 0 % (0-3) Basophils (%) (Auto) 0 % (0-3) 0 % (0-3) Neutrophils # (Auto) 7.2 x10^3/uL (1.8-7.7) 6.5 x10^3/uL (1.8-7.7) Lymphocytes # (Auto) 1.2 x10^3/uL (1.0-4.8) 1.7 x10^3/uL (1.0-4.8) Monocytes # (Auto) 0.9 x10^3/uL (0.0-1.1) 0.6 x10^3/uL (0.0-1.1) Eosinophils # (Auto) 0.0 x10^3/uL (0.0-0.7) 0.0 x10^3/uL (0.0-0.7) Basophils # (Auto) 0.0 x10^3/uL (0.0-0.2) 0.0 x10^3/uL (0.0-0.2) Sodium Level 140 mmol/L (136-145) 141 mmol/L (136-145) Potassium Level 4.0 mmol/L (3.5-5.1) 3.5 mmol/L (3.5-5.1) Chloride Level 106 mmol/L (98-107) 104 mmol/L (98-107) Carbon Dioxide Level 27 mmol/L (21-32) 37 mmol/L (21-32) Anion Gap 7 (6-14) 0 (6-14) Blood Urea Nitrogen 27 mg/dL (7-20) 18 mg/dL (7-20) Creatinine 1.4 mg/dL (0.6-1.0) 1.3 mg/dL (0.6-1.0) Estimated GFR (Cockcroft-Gault) 40.0 43.5 BUN/Creatinine Ratio 19 (6-20) Glucose Level 104 mg/dL (70-99) 103 mg/dL (70-99) Calcium Level 8.3 mg/dL (8.5-10.1) 8.0 mg/dL (8.5-10.1) Total Bilirubin 0.4 mg/dL (0.2-1.0) Aspartate Amino Transf (AST/SGOT) 896 U/L (15-37) Alanine Aminotransferase (ALT/SGPT) 343 U/L (14-59) Alkaline Phosphatase 95 U/L (46-116) Creatine Kinase 21355 U/L (26-192) Total Protein 5.5 g/dL (6.4-8.2) Albumin 2.3 g/dL (3.4-5.0) Albumin/Globulin Ratio 0.7 (1.0-1.7) Medications Current Medications Morphine Sulfate (Morphine Sulfate) 2 mg PRN Q3HRS PRN IVP PAIN SEVERE Last administered on 09/21/19at 12:10; Start 09/20/19 at 14:45 Acetaminophen (Tylenol) 500 mg PRN Q6HRS PRN PO MILD PAIN / TEMP; Start 09/20/19 at 14:45 Ondansetron HCl (Zofran) 4 mg PRN Q6HRS PRN IVP NAUSEA/VOMITING; Start 09/20/19 at 14:45 Sodium Chloride 1,000 ml @ 125 mls/hr Q8H IV Last administered on 09/21/19at 00:40; Start 09/20/19 at 15:00; Stop 09/21/19 at 10:22; Status DC Multivitamins 10 ml/Thiamine HCl 100 mg/Folic Acid 1 mg/Sodium Chloride 1,011.2 ml @ 1,000.088 mls/hr DAILY IV Last administered on 09/21/19at 09:50; Start at 09:00; Stop 09/25/19 at 10:01 Lorazepam (Ativan) 4 mg PRN Q1HR PRN PO For CIWA 8-14 Last administered on 09/21/19at 12:08; Start 09/20/19 at 14:45 Lorazepam (Ativan) 8 mg PRN Q1HR PRN PO For CIWA 15 or greater; Start 09/20/19 at 14:45 Lorazepam (Ativan Inj) 2 mg PRN Q1HR PRN IV For CIWA 8-14 Last administered on 09/20/19at 16:30; Start 09/20/19 at 14:45 Lorazepam (Ativan Inj) 4 mg PRN Q1HR PRN IV For CIWA 15 or greater; Start 09/20/19 at 14:45 Haloperidol Lactate (Haldol Inj) 5 mg PRN Q4HRS PRN IVP Hallucinatns,Confusn,Delirium; Start 09/20/19 at 14:45 Diphenhydramine HCl (Benadryl) 25 mg PRN Q15MIN PRN IVP EPS symptoms 2'Haldol admin; Start 09/20/19 at 14:45 Clonidine HCl (Catapres) 0.1 mg PRN Q1HR PRN PO SBP > 180 or DBP > 100, MRX3 Last administered on 09/20/19at 16:30; Start 09/20/19 at 14:45 Lorazepam (Ativan Inj) 2 mg PRN Q15MIN PRN IV SEE COMMENTS; Start 09/20/19 at 14:45; Stop 09/21/19 at 10:46; Status DC Multivitamins 10 ml/Thiamine HCl 100 mg/Folic Acid 1 mg/Sodium Chloride 1,011.2 ml @ 100 mls/ hr DAILY IV ; Start 09/21/19 at 09:00; Stop 09/25/19 at 19:07; Status UNV Multivitamins (Thera M Plus) 1 tab DAILY PO ; Start 09/25/19 at 09:00; Status UNV Folic Acid (Folic Acid) 1 mg DAILY PO ; Start 09/25/19 at 09:00; Status UNV Thiamine HCl 100 mg/Dextrose 51 ml @ 100 mls/hr DAILY IV ; Start 09/25/19 at 09:00; Stop 09/29/19 at 09:31; Status UNV Lorazepam (Ativan Inj) 2 mg PRN Q1HR PRN IV For CIWA 8-14; Start 09/20/19 at 14:45; Status UNV Lorazepam (Ativan Inj) 4 mg PRN Q1HR PRN IV For CIWA 15 or greater; Start 09/20/19 at 14:45; Status UNV Diphenhydramine HCl (Benadryl) 25 mg PRN Q15MIN PRN IVP EPS symptoms 2'Haldol admin; Start 09/20/19 at 14:45; Status UNV Morphine Sulfate (Morphine Sulfate) 2 mg PRN Q3HRS PRN IV PAIN; Start 09/20/19 at 14:45; Status UNV Acetaminophen (Tylenol) 500 mg PRN Q6HRS PRN PO MILD PAIN / TEMP; Start 09/20/19 at 14:45; Status UNV Ondansetron HCl (Zofran) 4 mg PRN Q6HRS PRN IVP NAUSEA/VOMITING; Start 09/20/19 at 14:45; Status UNV Sodium Chloride 1,000 ml @ 125 mls/hr 1X ONCE IV ; Start 09/20/19 at 14:45; Stop 09/20/19 at 14:57; Status DC Multivitamins 10 ml/Thiamine HCl 100 mg/Folic Acid 1 mg/Sodium Chloride 1,011.2 ml @ 1,000.088 mls/hr 1X ONCE IV Last administered on 09/20/19at 08:00; Start 09/20/19 at 08:00; Stop 09/20/19 at 16:59; Status DC Morphine Sulfate (Morphine Sulfate) 2 mg ONCE ONCE IVP ; Start 09/20/19 at 0 4:00; Stop 09/20/19 at 16:58; Status DC Ondansetron HCl (Zofran) 4 mg ONCE ONCE IVP ; Start 09/20/19 at 04:00; Stop 09/20/19 at 16:58; Status DC Sodium Chloride 1,000 ml @ 1,000 mls/hr Q1H ONCE IV ; Start 09/20/19 at 04:00; Stop 09/20/19 at 16:58; Status DC Sodium Bicarbonate 150 meq/Sterile Water 1,150 ml @ 200 mls/hr Q5H45M IV Last administered on 09/22/19at 05:00; Start 09/21/19 at 10:45 Oxycodone/ Acetaminophen (Percocet 5/325) 1 tab PRN Q4HRS PRN PO MODERATE- SEVERE PAIN Last administered on 09/22/19at 06:04; Start 09/21/19 at 10:45 Vitals/I & O Vital Sign - Last 24 Hours 09/21/19 09/21/19 09/21/19 09/21/19 11:59 12:10 12:10 12:40 Temp 97.8 97.8 Pulse 79 Resp B/P (MAP) 149/76 (100) Pulse Ox 97 97 O2 Delivery Room Air Room Air Room Air Room Air 09/21/19 09/21/19 09/21/19 09/21/19 13:10 15:59 18:04 19:04 Temp 98.0 98.0 Pulse 82 Resp B/P (MAP) 126/63 (84) Pulse Ox 95 O2 Delivery Room Air Room Air Room Air Room Air 09/21/19 09/21/19 09/21/19 09/21/19 19:30 19:44 23:00 23:21 Temp 97.9 99.7 97.9 99.7 Pulse 88 85 Resp 16 18 16 B/P (MAP) 106/53 (70) 155/81 (105) Pulse Ox 94 98 O2 Delivery Room Air Room Air Room Air Room Air 09/22/19 09/22/19 09/22/19 00:32 03:20 06:04 Temp 98.2 98.2 Pulse 84 Resp 16 16 B/P (MAP) 135/75 (95) Pulse Ox 94 94 94 O2 Delivery Room Air Room Air Room Air Intake and Output 09/21/19 09/21/19 09/22/19 15:00 23:00 07:00 Intake Total 350 ml 2600 ml Output Total 500 ml 1325 ml Balance -150 ml 1275 ml PALOMA CHENG MD Sep 22, 2019 08:20
[2019-09-22] MEDS: MULTIVIT INFUSN,ADULT 4,VIT K 10 ML, THIAMINE INJ 100 MG, FOLIC ACID INJ 1 MG in IV NOR... IV SCH (08:46)
[2019-09-22] MEDS: NICOTINE 21MG PATCH. TD SCH (10:13)
[2019-09-22] MEDS: LORazepam 1 MG TABLET PO PRN (10:14)
--- NOTE | 2019-09-22 10:45 | NUR ---
SW following. Discussed with RN, pt from home with . PAT team consulted for ETOH use/abuse - they will see pt today. Per RN, pt's leg is very swollen today. MELBA will continue to follow. Addendum: 09/22/19 at 1615 by NATALY REILLY Justin PAT team saw pt. Pt denied and mental health, SI or HI.Per Justin, pt reported she has a pint of vodka a week and does not think she has a problem or needs any help. Pt provided RADAC, RSI and AA resources. MELBA will continue to follow. RN notified.
[2019-09-22 11:00] VITALS: BP 136/84
[2019-09-22] MEDS: GABAPENTIN 100 MG CAPSULE. PO SCH ×2 (11:57→20:08)
--- NOTE | 2019-09-22 12:33 | PDOC2 ---
CONSULT Date of Consult Date of Consult DATE: 09/22/19 TIME: 12:29 Reason for Consult Reason for Consult: TONE AND RHABDOMYOLYSIS Referring Physician Referring Physician: ROLANDO Identification/Chief Complaint Chief Complaint LOC Source Source: Chart review History of Present Illness Reason for Visit: THIS IS A 49 YR OLD WITH ETOH ABUSE HX. WAS FOUND DOWN AT HOME INTOXICATED. UNSURE OF DOWN TIME. ON ADMIT CK OF OVER 80,000. NOTED TO HAVE RIGHT LEG COMPARTMENT SYNDROME AND THIS HAS BEEN SURGICALLY EVACUATED BY ORTHOPEDICS. CR OF 1.4. NO HX NOTED. PT STILL APPEARS SOMEWHAT CONFUSED. ON IVF'S NOW. UA C/W RHABDOMYOLYSIS Current Medications Current Medications Current Medications Morphine Sulfate (Morphine Sulfate) 2 mg PRN Q3HRS PRN IVP PAIN SEVERE Last administered on 09/21/19at 12:10; Start 09/20/19 at 14:45 Acetaminophen (Tylenol) 500 mg PRN Q6HRS PRN PO MILD PAIN / TEMP; Start 09/20/19 at 14:45 Ondansetron HCl (Zofran) 4 mg PRN Q6HRS PRN IVP NAUSEA/VOMITING; Start 09/20/19 at 14:45 Sodium Chloride 1,000 ml @ 125 mls/hr Q8H IV Last administered on 09/21/19at 00:40; Start 09/20/19 at 15:00; Stop 09/21/19 at 10:22; Status DC Multivitamins 10 ml/Thiamine HCl 100 mg/Folic Acid 1 mg/Sodium Chloride 1,011.2 ml @ 1,000.088 mls/hr DAILY IV Last administered on 09/22/19at 08:46; Start 09/21/19 at 09:00; Stop 09/25/19 at 10:01 Lorazepam (Ativan) 4 mg PRN Q1HR PRN PO For CIWA 8-14 Last administered on 09/21/19at 12:08; Start 09/20/19 at 14:45; Stop 09/22/19 at 09:44; Status DC Lorazepam (Ativan) 8 mg PRN Q1HR PRN PO For CIWA 15 or greater; Start 09/20/19 at 14:45; Stop 09/22/19 at 09:44; Status DC Lorazepam (Ativan Inj) 2 mg PRN Q1HR PRN IV For CIWA 8-14 Last administered on 09/20/19at 16:30; Start 09/20/19 at 14:45 Lorazepam (Ativan Inj) 4 mg PRN Q1HR PRN IV For CIWA 15 or greater; Start 09/20/19 at 14:45; Stop 09/22/19 at 09:44; Status DC Haloperidol Lactate (Haldol Inj) 5 mg PRN Q4HRS PRN IVP Hallucinatns,Confusn,Delirium; Start 09/20/19 at 14:45 Diphenhydramine HCl (Benadryl) 25 mg PRN Q15MIN PRN IVP EPS symptoms 2'Haldol admin; Start 09/20/19 at 14:45 Clonidine HCl (Catapres) 0.1 mg PRN Q1HR PRN PO SBP > 180 or DBP > 100, MRX3 Last administered on 09/20/19at 16:30; Start 09/20/19 at 14:45 Lorazepam (Ativan Inj) 2 mg PRN Q15MIN PRN IV SEE COMMENTS; Start 09/20/19 at 14:45; Stop 09/21/19 at 10:46; Status DC Multivitamins 10 ml/Thiamine HCl 100 mg/Folic Acid 1 mg/Sodium Chloride 1,011.2 ml @ 100 mls/ hr DAILY IV ; Start 09/21/19 at 09:00; Stop 09/25/19 at 19:07; Status UNV Multivitamins (Thera M Plus) 1 tab DAILY PO ; Start 09/25/19 at 09:00; Status UNV Folic Acid (Folic Acid) 1 mg DAILY PO ; Start 09/25/19 at 09:00; Status UNV Thiamine HCl 100 mg/Dextrose 51 ml @ 100 mls/hr DAILY IV ; Start 09/25/19 at 09:00; Stop 09/29/19 at 09:31; Status UNV Lorazepam (Ativan Inj) 2 mg PRN Q1HR PRN IV For CIWA 8-14; Start 09/20/19 at 14:45; Status UNV Lorazepam (Ativan Inj) 4 mg PRN Q1HR PRN IV For CIWA 15 or greater; Start 09/20/19 at 14:45; Status UNV Diphenhydramine HCl (Benadryl) 25 mg PRN Q15MIN PRN IVP EPS symptoms 2'Haldol admin; Start 09/20/19 at 14:45; Status UNV Morphine Sulfate (Morphine Sulfate) 2 mg PRN Q3HRS PRN IV PAIN; Start 09/20/19 at 14:45; Status UNV Acetaminophen (Tylenol) 500 mg PRN Q6HRS PRN PO MILD PAIN / TEMP; Start 09/20/19 at 14:45; Status UNV Ondansetron HCl (Zofran) 4 mg PRN Q6HRS PRN IVP NAUSEA/VOMITING; Start 09/20/19 at 14:45; Status UNV Sodium Chloride 1,000 ml @ 125 mls/hr 1X ONCE IV ; Start 09/20/19 at 14:45; Stop 09/20/19 at 14:57; Status DC Multivitamins 10 ml/Thiamine HCl 100 mg/Folic Acid 1 mg/Sodium Chloride 1,011.2 ml @ 1,000.088 mls/hr 1X ONCE IV Last administered on 09/20/19at 08:00; Start 09/20/19 at 08:00; Stop 09/20/19 at 16:59; Status DC Morphine Sulfate (Morphine Sulfate) 2 mg ONCE ONCE IVP ; Start 09/20/19 at 04:00; Stop 09/20/19 at 16:58; Status DC Ondansetron HCl (Zofran) 4 mg ONCE ONCE IVP ; Start 09/20/19 at 04:00; Stop 09/20/19 at 16:58; Status DC Sodium Chloride 1,000 ml @ 1,000 mls/hr Q1H ONCE IV ; Start 09/20/19 at 04:00; Stop 09/20/19 at 16:58; Status DC Sodium Bicarbonate 150 meq/Sterile Water 1,150 ml @ 200 mls/hr Q5H45M IV Last administered on 09/22/19at 10:14; Start 09/21/19 at 10:45 Oxycodone/ Acetaminophen (Percocet 5/325) 1 tab PRN Q4HRS PRN PO MODERATE- SEVERE PAIN Last administered on 09/22/19at 10:21; Start 09/21/19 at 10:45 Cefazolin Sodium (Ancef) 1 gm STK-MED ONCE IVP ; Start 09/20/19 at 08:00; Stop 09/22/19 at 09:01; Status DC Lorazepam (Ativan) 1 mg PRN Q4HRS PRN PO anxiety Last administered on 09/22/19at 10:14; Start 09/22/19 at 09:45 Nicotine (Nicoderm Cq 21mg) 1 patch DAILY TD Last administered on 09/22/19at 10:13; Start 09/22/19 at 09:45 Gabapentin (Neurontin) 100 mg TID PO Last administered on 09/22/19at 11:57; Start 09/22/19 at 12:00 Allergies Allergies: Coded Allergies: No Known Drug Allergies (Unverified , 09/20/19) ROS Review of System UNABLE TO OBTAIN Physical Exam General: Alert, Oriented X3, Cooperative, No acute distress HEENT: Atraumatic, PERRLA Lungs: Clear to auscultation Heart: Regular rate Abdomen: Normal bowel sounds, Soft, No tenderness Extremities: No cyanosis Skin: No breakdown MUSCULOSKELETAL: No swelling, Other (RIGHT THIGH WOUND) Vitals VITALS Vital Signs Date Time Temp Pulse Resp B/P (MAP) Pulse Ox O2 Delivery O2 Flow Rate FiO2 09/22/19 11:45 Room Air 09/22/19 11:00 98.6 74 18 136/84 (101) 98 98.6 Labs Labs Laboratory Tests Test 09/21/19 13:45 09/22/19 02:40 White Blood Count 9.2 x10^3/uL (4.0-11.0) 9.0 x10^3/uL (4.0-11.0) Red Blood Count 4.17 x10^6/uL (3.50-5.40) 3.87 x10^6/uL (3.50-5.40) Hemoglobin 13.1 g/dL (12.0-15.5) 12.0 g/dL (12.0-15.5) Hematocrit 38.5 % (36.0-47.0) 35.5 % (36.0-47.0) Mean Corpuscular Volume 92 fL (79-100) 92 fL (79-100) Mean Corpuscular Hemoglobin 31 pg (25-35) 31 pg (25-35) Mean Corpuscular Hemoglobin Concent 34 g/dL (31-37) 34 g/dL (31-37) Red Cell Distribution Width 13.3 % (11.5-14.5) 13.2 % (11.5-14.5) Platelet Count 198 x10^3/uL (140-400) 200 x10^3/uL (140-400) Neutrophils (%) (Auto) 78 % (31-73) 73 % (31-73) Lymphocytes (%) (Auto) 13 % (24-48) 19 % (24-48) Monocytes (%) (Auto) 9 % (0-9) 7 % (0-9) Eosinophils (%) (Auto) 0 % (0-3) 0 % (0-3) Basophils (%) (Auto) 0 % (0-3) 0 % (0-3) Neutrophils # (Auto) 7.2 x10^3/uL (1.8-7.7) 6.5 x10^3/uL (1.8-7.7) Lymphocytes # (Auto) 1.2 x10^3/uL (1.0-4.8) 1.7 x10^3/uL (1.0-4.8) Monocytes # (Auto) 0.9 x10^3/uL (0.0-1.1) 0.6 x10^3/uL (0.0-1.1) Eosinophils # (Auto) 0.0 x10^3/uL (0.0-0.7) 0.0 x10^3/uL (0.0-0.7) Basophils # (Auto) 0.0 x10^3/uL (0.0-0.2) 0.0 x10^3/uL (0.0-0.2) Sodium Level 140 mmol/L (136-145) 141 mmol/L (136-145) Potassium Level 4.0 mmol/L (3.5-5.1) 3.5 mmol/L (3.5-5.1) Chloride Level 106 mmol/L (98-107) 104 mmol/L (98-107) Carbon Dioxide Level 27 mmol/L (21-32) 37 mmol/L (21-32) Anion Gap 7 (6-14) 0 (6-14) Blood Urea Nitrogen 27 mg/dL (7-20) 18 mg/dL (7-20) Creatinine 1.4 mg/dL (0.6-1.0) 1.3 mg/dL (0.6-1.0) Estimated GFR (Cockcroft-Gault) 40.0 43.5 BUN/Creatinine Ratio 19 (6-20) Glucose Level 104 mg/dL (70-99) 103 mg/dL (70-99) Calcium Level 8.3 mg/dL (8.5-10.1) 8.0 mg/dL (8.5-10.1) Total Bilirubin 0.4 mg/dL (0.2-1.0) Aspartate Amino Transf (AST/SGOT) 896 U/L (15-37) Alanine Aminotransferase (ALT/SGPT) 343 U/L (14-59) Alkaline Phosphatase 95 U/L (46-116) Creatine Kinase 93074 U/L (26-192) Total Protein 5.5 g/dL (6.4-8.2) Albumin 2.3 g/dL (3.4-5.0) Albumin/Globulin Ratio 0.7 (1.0-1.7) Laboratory Tests Test 09/21/19 13:45 09/22/19 02:40 White Blood Count 9.2 x10^3/uL (4.0-11.0) 9.0 x10^3/uL (4.0-11.0) Red Blood Count 4.17 x10^6/uL (3.50-5.40) 3.87 x10^6/uL (3.50-5.40) Hemoglobin 13.1 g/dL (12.0-15.5) 12.0 g/dL (12.0-15.5) Hematocrit 38.5 % (36.0-47.0) 35.5 % (36.0-47.0) Mean Corpuscular Volume 92 fL (79-100) 92 fL (79-100) Mean Corpuscular Hemoglobin 31 pg (25-35) 31 pg (25-35) Mean Corpuscular Hemoglobin Concent 34 g/dL (31-37) 34 g/dL (31-37) Red Cell Distribution Width 13.3 % (11.5-14.5) 13.2 % (11.5-14.5) Platelet Count 198 x10^3/uL (140-400) 200 x10^3/uL (140-400) Neutrophils (%) (Auto) 78 % (31-73) 73 % (31-73) Lymphocytes (%) (Auto) 13 % (24-48) 19 % (24-48) Monocytes (%) (Auto) 9 % (0-9) 7 % (0-9) Eosinophils (%) (Auto) 0 % (0-3) 0 % (0-3) Basophils (%) (Auto) 0 % (0-3) 0 % (0-3) Neutrophils # (Auto) 7.2 x10^3/uL (1.8-7.7) 6.5 x10^3/uL (1.8-7.7) Lymphocytes # (Auto) 1.2 x10^3/uL (1.0-4.8) 1.7 x10^3/uL (1.0-4.8) Monocytes # (Auto) 0.9 x10^3/uL (0.0-1.1) 0.6 x10^3/uL (0.0-1.1) Eosinophils # (Auto) 0.0 x10^3/uL (0.0-0.7) 0.0 x10^3/uL (0.0-0.7) Basophils # (Auto) 0.0 x10^3/uL (0.0-0.2) 0.0 x10^3/uL (0.0-0.2) Sodium Level 140 mmol/L (136-145) 141 mmol/L (136-145) Potassium Level 4.0 mmol/L (3.5-5.1) 3.5 mmol/L (3.5-5.1) Chloride Level 106 mmol/L (98-107) 104 mmol/L (98-107) Carbon Dioxide Level 27 mmol/L (21-32) 37 mmol/L (21-32) Anion Gap 7 (6-14) 0 (6-14) Blood Urea Nitrogen 27 mg/dL (7-20) 18 mg/dL (7-20) Creatinine 1.4 mg/dL (0.6-1.0) 1.3 mg/dL (0.6-1.0) Estimated GFR (Cockcroft-Gault) 40.0 43.5 BUN/Creatinine Ratio 19 (6-20) Glucose Level 104 mg/dL (70-99) 103 mg/dL (70-99) Calcium Level 8.3 mg/dL (8.5-10.1) 8.0 mg/dL (8.5-10.1) Total Bilirubin 0.4 mg/dL (0.2-1.0) Aspartate Amino Transf (AST/SGOT) 896 U/L (15-37) Alanine Aminotransferase (ALT/SGPT) 343 U/L (14-59) Alkaline Phosphatase 95 U/L (46-116) Creatine Kinase 17476 U/L (26-192) Total Protein 5.5 g/dL (6.4-8.2) Albumin 2.3 g/dL (3.4-5.0) Albumin/Globulin Ratio 0.7 (1.0-1.7) Assessment/Plan Assessment/Plan IMP TONE-ATN RHABDOMYOLYSIS ETOH ABUSE PLAN HCO3 GTT HYDRATION AVOID NEPHROTOXINS SERIAL CPK WILL FOLLOW ANGELA SHEIKH MD Sep 22, 2019 12:33
[2019-09-22 15:00] VITALS: BP 127/77
--- NOTE | 2019-09-22 17:06 | NUR ---
Wound Care Pt seen for wound care consult and wound vac placement to R lateral lower leg fasciotomy site. Pt has just been premedicated with pain medicine and agreeable to proceed. Surgical dressing removed, 18 toni and retention sutures removed, per order of Dr. Shook. Wound bed cleaned, measured and photographed, wound bed is clean, beefy red with muscle exposed. Contact layer placed over exposed muscle, then 1 piece of black foam applied to wound, drape to seal, vac showing strong seal at -125 mmHg continuous suction, pt tolerated well, was dozing off during procedure. Size G Medigrip applied to RLE from base of toes to just below knee, and pillow elevated on pillows. Pt educated on vac function and alarms, and instructed not to get up by herself, pt v/u. Will f/u Sunday for next vac change.
[2019-09-22 19:00] VITALS: BP 116/61
[2019-09-22 22:37] VITALS: BP 132/73
[2019-09-23] MEDS: MORPHINE SULFATE 2 MG/ML VIAL. IVP PRN ×3 (00:28→21:47)
[2019-09-23] MEDS: SODIUM BICARBONATE VIAL 150 MEQ in IV STERILE WATER 1,000 ML IV SCH ×4 (01:44→21:08)
[2019-09-23 03:00] VITALS: BP 146/79
[2019-09-23] MEDS: oxyCODONE/APAP 5/325 1 TAB TABLET PO PRN ×4 (03:49→21:09)
[2019-09-23 05:07] LABS: ALBUMIN 1.8 g/dL (3.4-5.0); ALBUMIN/GLOBULIN RATIO 0.6 (1.0-1.7); CALCIUM 8.3 mg/dL (8.5-10.1); GFR 58.9; MAGNESIUM 1.8 mg/dL (1.8-2.4); PHOSPHORUS 3.6 mg/dL (2.6-4.7); POTASSIUM 3.5 mmol/L (3.5-5.1); TOTAL BILIRUBIN 0.3 mg/dL (0.2-1.0); TOTAL PROTEIN 4.8 g/dL (6.4-8.2)
[2019-09-23 07:15] VITALS: BP 153/79
--- NOTE | 2019-09-23 07:37 | PDOC ---
ORTHO PROGRESS NOTES Subjective Patient states moderate pain and numbness in dorsal right foot. Post-op Day: 3 Procedure Right lower extremity fasciotomy Vitals Vital Signs Date Time Temp Pulse Resp B/P (MAP) Pulse Ox O2 Delivery O2 Flow Rate FiO2 09/23/19 03:00 98.1 94 18 146/79 (101) 92 Room Air 98.1 Labs Laboratory Tests Test 09/21/19 13:45 09/22/19 02:40 09/23/19 04:05 White Blood Count 9.2 x10^3/uL (4.0-11.0) 9.0 x10^3/uL (4.0-11.0) Red Blood Count 4.17 x10^6/uL (3.50-5.40) 3.87 x10^6/uL (3.50-5.40) Hemoglobin 13.1 g/dL (12.0-15.5) 12.0 g/dL (12.0-15.5) Hematocrit 38.5 % (36.0-47.0) 35.5 % (36.0-47.0) Mean Corpuscular Volume 92 fL (79-100) 92 fL (79-100) Mean Corpuscular Hemoglobin 31 pg (25-35) 31 pg (25-35) Mean Corpuscular Hemoglobin Concent 34 g/dL (31-37) 34 g/dL (31-37) Red Cell Distribution Width 13.3 % (11.5-14.5) 13.2 % (11.5-14.5) Platelet Count 198 x10^3/uL (140-400) 200 x10^3/uL (140-400) Neutrophils (%) (Auto) 78 % (31-73) 73 % (31-73) Lymphocytes (%) (Auto) 13 % (24-48) 19 % (24-48) Monocytes (%) (Auto) 9 % (0-9) 7 % (0-9) Eosinophils (%) (Auto) 0 % (0-3) 0 % (0-3) Basophils (%) (Auto) 0 % (0-3) 0 % (0-3) Neutrophils # (Auto) 7.2 x10^3/uL (1.8-7.7) 6.5 x10^3/uL (1.8-7.7) Lymphocytes # (Auto) 1.2 x10^3/uL (1.0-4.8) 1.7 x10^3/uL (1.0-4.8) Monocytes # (Auto) 0.9 x10^3/uL (0.0-1.1) 0.6 x10^3/uL (0.0-1.1) Eosinophils # (Auto) 0.0 x10^3/uL (0.0-0.7) 0.0 x10^3/uL (0.0-0.7) Basophils # (Auto) 0.0 x10^3/uL (0.0-0.2) 0.0 x10^3/uL (0.0-0.2) Sodium Level 140 mmol/L (136-145) 141 mmol/L (136-145) 143 mmol/L (136-145) Potassium Level 4.0 mmol/L (3.5-5.1) 3.5 mmol/L (3.5-5.1) 3.5 mmol/L (3.5-5.1) Chloride Level 106 mmol/L (98-107) 104 mmol/L (98-107) 103 mmol/L (98-107) Carbon Dioxide Level 27 mmol/L (21-32) 37 mmol/L (21-32) 40 mmol/L (21-32) Anion Gap 7 (6-14) 0 (6-14) 0 (6-14) Blood Urea Nitrogen 27 mg/dL (7-20) 18 mg/dL (7-20) 13 mg/dL (7-20) Creatinine 1.4 mg/dL (0.6-1.0) 1.3 mg/dL (0.6-1.0) 1.0 mg/dL (0.6-1.0) Estimated GFR (Cockcroft-Gault) 40.0 43.5 58.9 BUN/Creatinine Ratio 19 (6-20) 13 (6-20) Glucose Level 104 mg/dL (70-99) 103 mg/dL (70-99) 107 mg/dL (70-99) Calcium Level 8.3 mg/dL (8.5-10.1) 8.0 mg/dL (8.5-10.1) 8.3 mg/dL (8.5-10.1) Total Bilirubin 0.4 mg/dL (0.2-1.0) 0.3 mg/dL (0.2-1.0) Aspartate Amino Transf (AST/SGOT) 896 U/L (15-37) 494 U/L (15-37) Alanine Aminotransferase (ALT/SGPT) 343 U/L (14-59) 204 U/L (14-59) Alkaline Phosphatase 95 U/L (46-116) 90 U/L (46-116) Creatine Kinase 50049 U/L (26-192) 44649 U/L (26-192) Total Protein 5.5 g/dL (6.4-8.2) 4.8 g/dL (6.4-8.2) Albumin 2.3 g/dL (3.4-5.0) 1.8 g/dL (3.4-5.0) Albumin/Globulin Ratio 0.7 (1.0-1.7) 0.6 (1.0-1.7) Phosphorus Level 3.6 mg/dL (2.6-4.7) Magnesium Level 1.8 mg/dL (1.8-2.4) Laboratory Tests Test 09/23/19 04:05 Sodium Level 143 mmol/L (136-145) Potassium Level 3.5 mmol/L (3.5-5.1) Chloride Level 103 mmol/L (98-107) Carbon Dioxide Level 40 mmol/L (21-32) Anion Gap 0 (6-14) Blood Urea Nitrogen 13 mg/dL (7-20) Creatinine 1.0 mg/dL (0.6-1.0) Estimated GFR (Cockcroft-Gault) 58.9 BUN/Creatinine Ratio 13 (6-20) Glucose Level 107 mg/dL (70-99) Calcium Level 8.3 mg/dL (8.5-10.1) Phosphorus Level 3.6 mg/dL (2.6-4.7) Magnesium Level 1.8 mg/dL (1.8-2.4) Total Bilirubin 0.3 mg/dL (0.2-1.0) Aspartate Amino Transf (AST/SGOT) 494 U/L (15-37) Alanine Aminotransferase (ALT/SGPT) 204 U/L (14-59) Alkaline Phosphatase 90 U/L (46-116) Creatine Kinase 55165 U/L (26-192) Total Protein 4.8 g/dL (6.4-8.2) Albumin 1.8 g/dL (3.4-5.0) Albumin/Globulin Ratio 0.6 (1.0-1.7) Notes awake and alert Assessment and Plan POD # 3 S/P R LE fasciotomy sensation intact at the toes but unable to dorsiflex foot and only slight motor movement with plantar flexion. Peroneal nerve damage possible wound vac in place patient states exercising foot and leg will require wound closure and possible skin graft in the future BRIJESH SHARPE APRN Sep 23, 2019 07:37
--- NOTE | 2019-09-23 08:08 | PDOC ---
PROGRESS NOTES Chief Complaint Chief Complaint Compartment syndrome status post surgical decompression Alcohol abuse disorder, concern for withdrawl, Leukoctosis Erythrocytosis from dehydration Acute renal failure secondary to rhabdomyolisis Transaminitis. poss rhabdo or etOH abuse, Lactic acidosis History of Present Illness History of Present Illness Ms Calderón is a 49 year old female with no past medical history who unfortunately abuses alcohol today admitted 09/20/2019 after being found down for unknown time, [place] [address] and was unable to feel her right leg which was swollen and tense. No headache no chest pain, no palpitations no nausea or vomiting. S/p Right lower leg fasciotomy with Dr. Shook 09/20/2019. 09/20: CPK 87008. LFTs up 09/21: She is asking for a cigarette today. Cr stable at 1.3. CK and LFTs pending. She tells me she thinks she has some sensation back in her toes. No CP or SOB. Pain in foot today, still with muscular weakness[place] [address], AST 494, ALT 209, Cr 1. No CP or SOB. She really wants to leave to smoke. Plan: cont IV fluid, check CK daily until close to 1999 follow recommendations from ortho pain management CIWA protocol - will add gabapentin per new recommendations DVT prophylaxis: heparin when approved by [employer] ax consultant. Nicotine patch Further recommendations based on clinical course. Vitals Vitals Vital Signs Date Time Temp Pulse Resp B/P (MAP) Pulse Ox O2 Delivery O2 Flow Rate FiO2 09/23/19 07:15 98.0 76 20 153/79 (103) 94 Room Air 98.0 Physical Exam General: Alert, Oriented X3, Cooperative, No acute distress Heart: Regular rate Abdomen: Normal bowel sounds, Soft, No tenderness Extremities: No cyanosis Skin: No breakdown Labs LABS Laboratory Tests Test 09/23/19 04:05 Sodium Level 143 mmol/L (136-145) Potassium Level 3.5 mmol/L (3.5-5.1) Chloride Level 103 mmol/L (98-107) Carbon Dioxide Level 40 mmol/L (21-32) Anion Gap 0 (6-14) Blood Urea Nitrogen 13 mg/dL (7-20) Creatinine 1.0 mg/dL (0.6-1.0) Estimated GFR (Cockcroft-Gault) 58.9 BUN/Creatinine Ratio 13 (6-20) Glucose Level 107 mg/dL (70-99) Calcium Level 8.3 mg/dL (8.5-10.1) Phosphorus Level 3.6 mg/dL (2.6-4.7) Magnesium Level 1.8 mg/dL (1.8-2.4) Total Bilirubin 0.3 mg/dL (0.2-1.0) Aspartate Amino Transf (AST/SGOT) 494 U/L (15-37) Alanine Aminotransferase (ALT/SGPT) 204 U/L (14-59) Alkaline Phosphatase 90 U/L (46-116) Creatine Kinase 01283 U/L (26-192) Total Protein 4.8 g/dL (6.4-8.2) Albumin 1.8 g/dL (3.4-5.0) Albumin/Globulin Ratio 0.6 (1.0-1.7) Comment Review of Relevant I have reviewed the following items jacob (where applicable) has been applied. Labs Laboratory Tests Test 09/21/19 13:45 09/22/19 02:40 09/23/19 04:05 White Blood Count 9.2 x10^3/uL (4.0-11.0) 9.0 x10^3/uL (4.0-11.0) Red Blood Count 4.17 x10^6/uL (3.50-5.40) 3.87 x10^6/uL (3.50-5.40) Hemoglobin 13.1 g/dL (12.0-15.5) 12.0 g/dL (12.0-15.5) Hematocrit 38.5 % (36.0-47.0) 35.5 % (36.0-47.0) Mean Corpuscular Volume 92 fL (79-100) 92 fL (79-100) Mean Corpuscular Hemoglobin 31 pg (25-35) 31 pg (25-35) Mean Corpuscular Hemoglobin Concent 34 g/dL (31-37) 34 g/dL (31-37) Red Cell Distribution Width 13.3 % (11.5-14.5) 13.2 % (11.5-14.5) Platelet Count 198 x10^3/uL (140-400) 200 x10^3/uL (140-400) Neutrophils (%) (Auto) 78 % (31-73) 73 % (31-73) Lymphocytes (%) (Auto) 13 % (24-48) 19 % (24-48) Monocytes (%) (Auto) 9 % (0-9) 7 % (0-9) Eosinophils (%) (Auto) 0 % (0-3) 0 % (0-3) Basophils (%) (Auto) 0 % (0-3) 0 % (0-3) Neutrophils # (Auto) 7.2 x10^3/uL (1.8-7.7) 6.5 x10^3/uL (1.8-7.7) Lymphocytes # (Auto) 1.2 x10^3/uL (1.0-4.8) 1.7 x10^3/uL (1.0-4.8) Monocytes # (Auto) 0.9 x10^3/uL (0.0-1.1) 0.6 x10^3/uL (0.0-1.1) Eosinophils # (Auto) 0.0 x10^3/uL (0.0-0.7) 0.0 x10^3/uL (0.0-0.7) Basophils # (Auto) 0.0 x10^3/uL (0.0-0.2) 0.0 x10^3/uL (0.0-0.2) Sodium Level 140 mmol/L (136-145) 141 mmol/L (136-145) 143 mmol/L (136-145) Potassium Level 4.0 mmol/L (3.5-5.1) 3.5 mmol/L (3.5-5.1) 3.5 mmol/L (3.5-5.1) Chloride Level 106 mmol/L (98-107) 104 mmol/L (98-107) 103 mmol/L (98-107) Carbon Dioxide Level 27 mmol/L (21-32) 37 mmol/L (21-32) 40 mmol/L (21-32) Anion Gap 7 (6-14) 0 (6-14) 0 (6-14) Blood Urea Nitrogen 27 mg/dL (7-20) 18 mg/dL (7-20) 13 mg/dL (7-20) Creatinine 1.4 mg/dL (0.6-1.0) 1.3 mg/dL (0.6-1.0) 1.0 mg/dL (0.6-1.0) Estimated GFR (Cockcroft-Gault) 40.0 43.5 58.9 BUN/Creatinine Ratio 19 (6-20) 13 (6-20) Glucose Level 104 mg/dL (70-99) 103 mg/dL (70-99) 107 mg/dL (70-99) Calcium Level 8.3 mg/dL (8.5-10.1) 8.0 mg/dL (8.5-10.1) 8.3 mg/dL (8.5-10.1) Total Bilirubin 0.4 mg/dL (0.2-1.0) 0.3 mg/dL (0.2-1.0) Aspartate Amino Transf (AST/SGOT) 896 U/L (15-37) 494 U/L (15-37) Alanine Aminotransferase (ALT/SGPT) 343 U/L (14-59) 204 U/L (14-59) Alkaline Phosphatase 95 U/L (46-116) 90 U/L (46-116) Creatine Kinase 65592 U/L (26-192) 51840 U/L (26-192) Total Protein 5.5 g/dL (6.4-8.2) 4.8 g/dL (6.4-8.2) Albumin 2.3 g/dL (3.4-5.0) 1.8 g/dL (3.4-5.0) Albumin/Globulin Ratio 0.7 (1.0-1.7) 0.6 (1.0-1.7) Phosphorus Level 3.6 mg/dL (2.6-4.7) Magnesium Level 1.8 mg/dL (1.8-2.4) Laboratory Tests Test 09/23/19 04:05 Sodium Level 143 mmol/L (136-145) Potassium Level 3.5 mmol/L (3.5-5.1) Chloride Level 103 mmol/L (98-107) Carbon Dioxide Level 40 mmol/L (21-32) Anion Gap 0 (6-14) Blood Urea Nitrogen 13 mg/dL (7-20) Creatinine 1.0 mg/dL (0.6-1.0) Estimated GFR (Cockcroft-Gault) 58.9 BUN/Creatinine Ratio 13 (6-20) Glucose Level 107 mg/dL (70-99) Calcium Level 8.3 mg/dL (8.5-10.1) Phosphorus Level 3.6 mg/dL (2.6-4.7) Magnesium Level 1.8 mg/dL (1.8-2.4) Total Bilirubin 0.3 mg/dL (0.2-1.0) Aspartate Amino Transf (AST/SGOT) 494 U/L (15-37) Alanine Aminotransferase (ALT/SGPT) 204 U/L (14-59) Alkaline Phosphatase 90 U/L (46-116) Creatine Kinase 62449 U/L (26-192) Total Protein 4.8 g/dL (6.4-8.2) Albumin 1.8 g/dL (3.4-5.0) Albumin/Globulin Ratio 0.6 (1.0-1.7) Medications Current Medications Morphine Sulfate (Morphine Sulfate) 2 mg PRN Q3HRS PRN IVP PAIN SEVERE Last administered on 09/23/19at 00:28; Start 09/20/19 at 14:45 Acetaminophen (Tylenol) 500 mg PRN Q6HRS PRN PO MILD PAIN / TEMP; Start 09/20/19 at 14:45 Ondansetron HCl (Zofran) 4 mg PRN Q6HRS PRN IVP NAUSEA/VOMITING; Start 09/20/19 at 14:45 Sodium Chloride 1,000 ml @ 125 mls/hr Q8H IV Last administered on 09/21/19at 00:40; Start 09/20/19 at 15:00; Stop 09/21/19 at 10:22; Status DC Multivitamins 10 ml/Thiamine HCl 100 mg/Folic Acid 1 mg/Sodium Chloride 1,011.2 ml @ 1,000.088 mls/hr DAILY IV Last administered on 09/22/19at 08:46; Start 09/21/19 at 09:00; Stop 09/25/19 at 10:01 Lorazepam (Ativan) 4 mg PRN Q1HR PRN PO For CIWA 8-14 Last administered on 09/21/19at 12:08; Start 09/20/19 at 14:45; Stop 09/22/19 at 09:44; Status DC Lorazepam (Ativan) 8 mg PRN Q1HR PRN PO For CIWA 15 or greater; Start 09/20/19 at 14:45; Stop 09/22/19 at 09:44; Status DC Lorazepam (Ativan Inj) 2 mg PRN Q1HR PRN IV For CIWA 8-14 Last administered on 09/20/19at 16:30; Start 09/20/19 at 14:45 Lorazepam (Ativan Inj) 4 mg PRN Q1HR PRN IV For CIWA 15 or greater; Start 09/20/19 at 14:45; Stop 09/22/19 at 09:44; Status DC Haloperidol Lactate (Haldol Inj) 5 mg PRN Q4HRS PRN IVP Hallucinatns,Confusn,Delirium; Start 09/20/19 at 14:45 Diphenhydramine HCl (Benadryl) 25 mg PRN Q15MIN PRN IVP EPS symptoms 2'Haldol admin; Start 09/20/19 at 14:45 Clonidine HCl (Catapres) 0.1 mg PRN Q1HR PRN PO SBP > 180 or DBP > 100, MRX3 Last administered on 09/20/19at 16:30; Start 09/20/19 at 14:45 Lorazepam (Ativan Inj) 2 mg PRN Q15MIN PRN IV SEE COMMENTS; Start 09/20/19 at 14:45; Stop 09/21/19 at 10:46; Status DC Multivitamins 10 ml/Thiamine HCl 100 mg/Folic Acid 1 mg/Sodium Chloride 1,011.2 ml @ 100 mls/ hr DAILY IV ; Start 09/21/19 at 09:00; Stop 09/25/19 at 19:07; Status UNV Multivitamins (Thera M Plus) 1 tab DAILY PO ; Start 09/25/19 at 09:00; Status UNV Folic Acid (Folic Acid) 1 mg DAILY PO ; Start 09/25/19 at 09:00; Status UNV Thiamine HCl 100 mg/Dextrose 51 ml @ 100 mls/hr DAILY IV ; Start 09/25/19 at 09:00; Stop 09/29/19 at 09:31; Status UNV Lorazepam (Ativan Inj) 2 mg PRN Q1HR PRN IV For CIWA 8-14; Start 09/20/19 at 14:45; Status UNV Lorazepam (Ativan Inj) 4 mg PRN Q1HR PRN IV For CIWA 15 or greater; Start 09/20/19 at 14:45; Status UNV Diphenhydramine HCl (Benadryl) 25 mg PRN Q15MIN PRN IVP EPS symptoms 2'Haldol admin; Start 09/20/19 at 14:45; Status UNV Morphine Sulfate (Morphine Sulfate) 2 mg PRN Q3HRS PRN IV PAIN; Start 09/20/19 at 14:45; Status UNV Acetaminophen (Tylenol) 500 mg PRN Q6HRS PRN PO MILD PAIN / TEMP; Start 0 at 14:45; Status UNV Ondansetron HCl (Zofran) 4 mg PRN Q6HRS PRN IVP NAUSEA/VOMITING; Start 09/20/19 at 14:45; Status UNV Sodium Chloride 1,000 ml @ 125 mls/hr 1X ONCE IV ; Start 09/20/19 at 14:45; Stop 09/20/19 at 14:57; Status DC Multivitamins 10 ml/Thiamine HCl 100 mg/Folic Acid 1 mg/Sodium Chloride 1,011.2 ml @ 1,000.088 mls/hr 1X ONCE IV Last administered on 09/20/19at 08:00; Start 09/20/19 at 08:00; Stop 09/20/19 at 16:59; Status DC Morphine Sulfate (Morphine Sulfate) 2 mg ONCE ONCE IVP ; Start 09/20/19 at 04:00; Stop 09/20/19 at 16:58; Status DC Ondansetron HCl (Zofran) 4 mg ONCE ONCE IVP ; Start 09/20/19 at 04:00; Stop 09/20/19 at 16:58; Status DC Sodium Chloride 1,000 ml @ 1,000 mls/hr Q1H ONCE IV ; Start 09/20/19 at 04:00; Stop 09/20/19 at 16:58; Status DC Sodium Bicarbonate 150 meq/Sterile Water 1,150 ml @ 200 mls/hr Q5H45M IV Last administered on 09/23/19at 01:44; Start 09/21/19 at 10:45 Oxycodone/ Acetaminophen (Percocet 5/325) 1 tab PRN Q4HRS PRN PO MODERATE- SEVERE PAIN Last administered on 09/23/19at 03:49; Start 09/21/19 at 10:45 Cefazolin Sodium (Ancef) 1 gm STK-MED ONCE IVP ; Start 09/20/19 at 08:00; Stop 09/22/19 at 09:01; Status DC Lorazepam (Ativan) 1 mg PRN Q4HRS PRN PO anxiety Last administered on 09/22/19at 10:14; Start 09/22/19 at 09:45 Nicotine (Nicoderm Cq 21mg) 1 patch DAILY TD Last administered on 09/22/19at 10:13; Start 09/22/19 at 09:45 Gabapentin (Neurontin) 100 mg TID PO Last administered on 09/22/19at 20:08; Start 09/22/19 at 12:00 Vitals/I & O Vital Sign - Last 24 Hours 09/22/19 09/22/19 09/22/19 09/22/19 10:21 11:00 11:45 15:00 Temp 98.6 98.0 98.6 98.0 Pulse 74 87 Resp 18 16 B/P (MAP) 136/84 (101) 127/77 (94) Pulse Ox 98 96 O2 Delivery Room Air Room Air Room Air Room Air 09/22/19 09/22/19 09/22/19 09/22/19 15:51 17:00 19:00 20:00 Temp 98.4 98.4 Pulse 90 Resp 18 B/P (MAP) 116/61 (79) Pulse Ox 94 O2 Delivery Room Air Room Air Room Air Room Air 09/22/19 09/23/19 09/23/19 22:37 03:00 07:15 Temp 98.0 98.1 98.0 98.0 98.1 98.0 Pulse 90 94 76 Resp 18 18 20 B/P (MAP) 132/73 (92) 146/79 (101) 153/79 (103) Pulse Ox 95 92 94 O2 Delivery Room Air Room Air Room Air Intake and Output 09/22/19 09/22/19 09/23/19 15:00 23:00 07:00 Intake Total 480 ml 720 ml 1340 ml Output Total 751 ml Balance 480 ml -31 ml 1340 ml RIFFELPALOMA S MD Sep 23, 2019 08:08
[2019-09-23] MEDS: GABAPENTIN 100 MG CAPSULE. PO SCH ×3 (08:43→21:08)
[2019-09-23] MEDS: NICOTINE 21MG PATCH. TD SCH (08:44)
[2019-09-23] MEDS: MULTIVIT INFUSN,ADULT 4,VIT K 10 ML, THIAMINE INJ 100 MG, FOLIC ACID INJ 1 MG in IV NOR... IV SCH (08:45)
--- NOTE | 2019-09-23 09:52 | NUR ---
SW following. Discussed with RN, pt cleared by PAT team yesterday. Pt now has wound vac, labs still elevated today. SW will continue to follow.
[2019-09-23 11:04] VITALS: BP 171/88
--- NOTE | 2019-09-23 12:15 | PDOC ---
Renal-Progress Notes Subjective Notes Notes NO NEW COMPLAINTS History of Present Illness Hx of present illness STABLE Vitals Vitals Vital Signs Date Time Temp Pulse Resp B/P (MAP) Pulse Ox O2 Delivery O2 Flow Rate FiO2 09/23/19 11:04 98.3 74 20 171/88 (115) 95 Room Air 98.3 Weight Weight [ ] I.O. Intake and Output Intake and Output 09/23/19 07:00 Intake Total 2540 ml Output Total 751 ml Balance 1789 ml Intake Oral 1440 ml IV Total 1100 ml Output Urine Total 751 ml # Voids 6 # Bowel Movements 1 Labs Labs Laboratory Tests Test 09/23/19 04:05 Sodium Level 143 mmol/L (136-145) Potassium Level 3.5 mmol/L (3.5-5.1) Chloride Level 103 mmol/L (98-107) Carbon Dioxide Level 40 mmol/L (21-32) Anion Gap 0 (6-14) Blood Urea Nitrogen 13 mg/dL (7-20) Creatinine 1.0 mg/dL (0.6-1.0) Estimated GFR (Cockcroft-Gault) 58.9 BUN/Creatinine Ratio 13 (6-20) Glucose Level 107 mg/dL (70-99) Calcium Level 8.3 mg/dL (8.5-10.1) Phosphorus Level 3.6 mg/dL (2.6-4.7) Magnesium Level 1.8 mg/dL (1.8-2.4) Total Bilirubin 0.3 mg/dL (0.2-1.0) Aspartate Amino Transf (AST/SGOT) 494 U/L (15-37) Alanine Aminotransferase (ALT/SGPT) 204 U/L (14-59) Alkaline Phosphatase 90 U/L (46-116) Creatine Kinase 92897 U/L (26-192) Total Protein 4.8 g/dL (6.4-8.2) Albumin 1.8 g/dL (3.4-5.0) Albumin/Globulin Ratio 0.6 (1.0-1.7) Review of Systems Constitutional: yes: alert, oriented Ears/Nose/Throat: Yes: no symptom reported Eyes: Yes: no symptom reported Pulmonary: Yes no symptom reported Cardiovascular: Yes no symptom reported Gastrointestional: Yes: no symptom reported Genitourinary: Yes: no symptom reported Musculoskeletal: Yes: muscle pain, muscle stiffness Skin: Yes no symptom reported Psychiatric/Neurological: Yes: no symptom reported Endocrine: Yes: no symptom reported Hematologic/Lymphatic: Yes: no symptom reported Physical Exam General Appearance: no apparent distress Respiratory: decreased breath sounds Heart: S1S2 Abdomen: soft, bowel sounds present Genitourinary: bladder flat Extremities: pulses present Neurology: alert, oriented Assessment Assessment IMP TONE-ATN-CR STABLE AT 1.3 RHABDOMYOLYSIS-CK DECREASING ETOH ABUSE PLAN HCO3 GTT HYDRATION AVOID NEPHROTOXINS SERIAL CPK ANGELA SHEIKH MD Sep 23, 2019 12:15
[2019-09-23 15:08] VITALS: BP 130/82
[2019-09-23 19:00] VITALS: BP 150/79
[2019-09-23] MEDS: LORazepam 1 MG TABLET PO PRN (21:09)
[2019-09-23 22:51] VITALS: BP 157/83
[2019-09-24] VITALS (7 sets, daily range): BP systolic 96–153; BP diastolic 56–89
[2019-09-24] MEDS: SODIUM BICARBONATE VIAL 150 MEQ in IV STERILE WATER 1,000 ML IV SCH ×3 (04:27→21:52)
[2019-09-24 07:12] LABS: ALBUMIN 1.9 g/dL (3.4-5.0); ALBUMIN/GLOBULIN RATIO 0.6 (1.0-1.7); CALCIUM 8.6 mg/dL (8.5-10.1); GFR 58.9; MAGNESIUM 1.4 mg/dL (1.8-2.4); PHOSPHORUS 4.2 mg/dL (2.6-4.7); POTASSIUM 3.7 mmol/L (3.5-5.1); TOTAL BILIRUBIN 0.3 mg/dL (0.2-1.0)
[2019-09-24] MEDS: oxyCODONE/APAP 5/325 1 TAB TABLET PO PRN ×4 (07:28→21:52)
--- NOTE | 2019-09-24 07:51 | PDOC ---
PROGRESS NOTES Chief Complaint Chief Complaint Compartment syndrome status post surgical decompression Alcohol abuse disorder, concern for withdrawl, Leukoctosis Erythrocytosis from dehydration Acute renal failure secondary to rhabdomyolisis Transaminitis. poss rhabdo or etOH abuse, Lactic acidosis History of Present Illness History of Present Illness Ms Calderón is a 49 year old female with no past medical history who unfortunately abuses alcohol today admitted 09/20/2019 after being found down for unknown time, [place] [address] and was unable to feel her right leg which was swollen and tense. No headache no chest pain, no palpitations no nausea or vomiting. S/p Right lower leg fasciotomy with Dr. Shook 09/20/2019. 09/20: CPK 96330. LFTs up 09/21: She is asking for a cigarette today. Cr stable at 1.3. CK and LFTs pending. She tells me she thinks she has some sensation back in her toes. No CP or SOB. 09/22: Pain in foot today, still with muscular weakness[place] [address], AST 494, ALT 209, Cr 1. No CP or SOB. She really wants to leave to smoke. Overnight tolerated bicarb gtt well. CK 8620. AST 379, ALT 184. She is asking if she will ever get feeling all the way back. Able to move toes. No CP or SOB. Plan: cont IV fluid, check CK daily until close to 1999 follow recommendations from ortho pain management CIWA protocol - will add gabapentin per new recommendations DVT prophylaxis: heparin when approved by exchange consultant. Nicotine patch Further recommendations based on clinical course. Vitals Vitals Vital Signs Date Time Temp Pulse Resp B/P (MAP) Pulse Ox O2 Delivery O2 Flow Rate FiO2 09/24/19 07:28 Room Air 09/24/19 03:00 98.3 83 18 149/81 (103) 98 98.3 Physical Exam General: Alert, Oriented X3, Cooperative, No acute distress Heart: Regular rate Abdomen: Normal bowel sounds, Soft, No tenderness Extremities: No cyanosis Skin: No breakdown Comment Review of Relevant I have reviewed the following items jacob (where applicable) has been applied. Labs Laboratory Tests Test 09/23/19 04:05 Sodium Level 143 mmol/L (136-145) Potassium Level 3.5 mmol/L (3.5-5.1) Chloride Level 103 mmol/L (98-107) Carbon Dioxide Level 40 mmol/L (21-32) Anion Gap 0 (6-14) Blood Urea Nitrogen 13 mg/dL (7-20) Creatinine 1.0 mg/dL (0.6-1.0) Estimated GFR (Cockcroft-Gault) 58.9 BUN/Creatinine Ratio 13 (6-20) Glucose Level 107 mg/dL (70-99) Calcium Level 8.3 mg/dL (8.5-10.1) Phosphorus Level 3.6 mg/dL (2.6-4.7) Magnesium Level 1.8 mg/dL (1.8-2.4) Total Bilirubin 0.3 mg/dL (0.2-1.0) Aspartate Amino Transf (AST/SGOT) 494 U/L (15-37) Alanine Aminotransferase (ALT/SGPT) 204 U/L (14-59) Alkaline Phosphatase 90 U/L (46-116) Creatine Kinase 40831 U/L (26-192) Total Protein 4.8 g/dL (6.4-8.2) Albumin 1.8 g/dL (3.4-5.0) Albumin/Globulin Ratio 0.6 (1.0-1.7) Medications Current Medications Morphine Sulfate (Morphine Sulfate) 2 mg PRN Q3HRS PRN IVP PAIN SEVERE Last administered on 09/23/19at 21:47; Start 09/20/19 at 14:45 Acetaminophen (Tylenol) 500 mg PRN Q6HRS PRN PO MILD PAIN / TEMP; Start 09/20/19 at 14:45 Ondansetron HCl (Zofran) 4 mg PRN Q6HRS PRN IVP NAUSEA/VOMITING; Start 09/20/19 at 14:45 Sodium Chloride 1,000 ml @ 125 mls/hr Q8H IV Last administered on 09/21/19at 00:40; Start 09/20/19 at 15:00; Stop 09/21/19 at 10:22; Status DC Multivitamins 10 ml/Thiamine HCl 100 mg/Folic Acid 1 mg/Sodium Chloride 1,011.2 ml @ 1,000.088 mls/hr DAILY IV Last administered on 09/23/19at 08:45; Start 09/21/19 at 09:00; Stop 09/23/19 at 17:09; Status DC Lorazepam (Ativan) 4 mg PRN Q1HR PRN PO For CIWA 8-14 Last administered on 09/21/19at 12:08; Start 09/20/19 at 14:45; Stop 09/22/19 at 09:44; Status DC Lorazepam (Ativan) 8 mg PRN Q1HR PRN PO For CIWA 15 or greater; Start 09/20/19 at 14:45; Stop 09/22/19 at 09:44; Status DC Lorazepam (Ativan Inj) 2 mg PRN Q1HR PRN IV For CIWA 8-14 Last administered on 09/20/19at 16:30; Start 09/20/19 at 14:45 Lorazepam (Ativan Inj) 4 mg PRN Q1HR PRN IV For CIWA 15 or greater; Start 09/20/19 at 14:45; Stop 09/22/19 at 09:44; Status DC Haloperidol Lactate (Haldol Inj) 5 mg PRN Q4HRS PRN IVP Hallucinatns,Confusn,Delirium; Start 09/20/19 at 14:45 Diphenhydramine HCl (Benadryl) 25 mg PRN Q15MIN PRN IVP EPS symptoms 2'Haldol admin; Start 09/20/19 at 14:45 Clonidine HCl (Catapres) 0.1 mg PRN Q1HR PRN PO SBP > 180 or DBP > 100, MRX3 Last administered on 09/20/19at 16:30; Start 09/20/19 at 14:45 Lorazepam (Ativan Inj) 2 mg PRN Q15MIN PRN IV SEE COMMENTS; Start 09/20/19 at 14:45; Stop 09/21/19 at 10:46; Status DC Multivitamins 10 ml/Thiamine HCl 100 mg/Folic Acid 1 mg/Sodium Chloride 1,011.2 ml @ 100 mls/ hr DAILY IV ; Start 09/21/19 at 09:00; Stop 09/25/19 at 19:07; Status UNV Multivitamins (Thera M Plus) 1 tab DAILY PO ; Start 09/25/19 at 09:00; Status UNV Folic Acid (Folic Acid) 1 mg DAILY PO ; Start 09/25/19 at 09:00; Status UNV Thiamine HCl 100 mg/Dextrose 51 ml @ 100 mls/hr DAILY IV ; Start 09/25/19 at 09:00; Stop 09/29/19 at 09:31; Status UNV Lorazepam (Ativan Inj) 2 mg PRN Q1HR PRN IV For CIWA 8-14; Start 09/20/19 at 14:45; Status UNV Lorazepam (Ativan Inj) 4 mg PRN Q1HR PRN IV For CIWA 15 or greater; Start 09/20/19 at 14:45; Status UNV Diphenhydramine HCl (Benadryl) 25 mg PRN Q15MIN PRN IVP EPS symptoms 2'Haldol admin; Start 09/20/19 at 14:45; Status UNV Morphine Sulfate (Morphine Sulfate) 2 mg PRN Q3HRS PRN IV PAIN; Start 09/20/19 at 14:45; Status UNV Acetaminophen (Tylenol) 500 mg PRN Q6HRS PRN PO MILD PAIN / TEMP; Start 09/20/19 at 14:45; Status UNV Ondansetron HCl (Zofran) 4 mg PRN Q6HRS PRN IVP NAUSEA/VOMITING; Start 09/20/19 at 14:45; Status UNV Sodium Chloride 1,000 ml @ 125 mls/hr 1X ONCE IV ; Start 09/20/19 at 14:45; Stop 09/20/19 at 14:57; Status DC Multivitamins 10 ml/Thiamine HCl 100 mg/Folic Acid 1 mg/Sodium Chloride 1,011.2 ml @ 1,000.088 mls/hr 1X ONCE IV Last administered on 09/20/19at 08:00; Start 09/20/19 at 08:00; Stop 09/20/19 at 16:59; Status DC Morphine Sulfate (Morphine Sulfate) 2 mg ONCE ONCE IVP ; Start 09/20/19 at 04:00; Stop 09/20/19 at 16:58; Status DC Ondansetron HCl (Zofran) 4 mg ONCE ONCE IVP ; Start 09/20/19 at 04:00; Stop 09/20/19 at 16:58; Status DC Sodium Chloride 1,000 ml @ 1,000 mls/hr Q1H ONCE IV ; Start 09/20/19 at 04:00; Stop 09/20/19 at 16:58; Status DC Sodium Bicarbonate 150 meq/Sterile Water 1,150 ml @ 150 mls/hr Q7H40M IV Last administered on 09/24/19at 04:27; Start 09/21/19 at 10:45 Oxycodone/ Acetaminophen (Percocet 5/325) 1 tab PRN Q4HRS PRN PO MODERATE- SEVERE PAIN Last administered on 09/24/19at 07:28; Start 09/21/19 at 10:45 Cefazolin Sodium (Ancef) 1 gm STK-MED ONCE IVP ; Start 09/20/19 at 08:00; Stop 09/22/19 at 09:01; Status DC Lorazepam (Ativan) 1 mg PRN Q4HRS PRN PO anxiety Last administered on 09/23/19at 21:09; Start 09/22/19 at 09:45 Nicotine (Nicoderm Cq 21mg) 1 patch DAILY TD Last administered on 09/23/19at 08:44; Start 09/22/19 at 09:45 Gabapentin (Neurontin) 100 mg TID PO Last administered on 09/23/19at 21:08; St art 09/22/19 at 12:00 Propofol 20 ml @ As Directed STK-MED ONCE IV ; Start 09/20/19 at 06:58; Stop 09/23/19 at 09:43; Status DC Lidocaine HCl (Lidocaine Pf 2% Vial) 5 ml STK-MED ONCE .ROUTE ; Start 09/20/19 at 06:58; Stop 09/23/19 at 09:43; Status DC Fentanyl Citrate (Fentanyl 2ml Vial) 100 mcg STK-MED ONCE .ROUTE ; Start 09/20/19 at 06:59; Stop 09/23/19 at 09:43; Status DC Cefazolin Sodium (Ancef) 1 gm STK-MED ONCE IVP ; Start 09/20/19 at 07:52; Stop 09/23/19 at 09:43; Status DC Sevoflurane (Ultane) 30 ml STK-MED ONCE IH ; Start 09/20/19 at 07:52; Stop 09/23/19 at 09:43; Status DC Dexamethasone Sodium Phosphate (Decadron) 4 mg STK-MED ONCE .ROUTE ; Start 09/20/19 at 07:54; Stop 09/23/19 at 09:43; Status DC Phenylephrine HCl (PHENYLEPHRINE in 0.9% NACL PF) 1 mg STK-MED ONCE IV ; Start 09/20/19 at 07:58; Stop 09/23/19 at 09:43; Status DC Hydromorphone HCl (Dilaudid) 2 mg STK-MED ONCE .ROUTE ; Start 09/20/19 at 08:28; Stop 09/23/19 at 09:43; Status DC Ondansetron HCl (Zofran) 4 mg STK-MED ONCE .ROUTE ; Start 09/20/19 at 08:29; Stop 09/23/19 at 09:44; Status DC Lidocaine HCl (Lidocaine 1% 20ml Vial) 20 ml STK-MED ONCE .ROUTE ; Start 09/20/19 at 05:06; Stop 09/23/19 at 09:44; Status DC Ondansetron HCl (Zofran) 4 mg STK-MED ONCE .ROUTE ; Start 09/20/19 at 05:06; Stop 09/23/19 at 09:44; Status DC Morphine Sulfate (Morphine Sulfate) 4 mg STK-MED ONCE .ROUTE ; Start 09/20/19 at 05:07; Stop 09/23/19 at 09:44; Status DC Sodium Chloride (NORMAL SALINE FLUSH for STERILE FIELD) 10 ml STK-MED ONCE .ROUTE ; Start 09/20/19 at 05:19; Stop 09/23/19 at 09:44; Status DC Multivitamins (Thera M Plus) 1 tab DAILY PO ; Start 09/24/19 at 09:00 Thiamine Mononitrate (Vitamin B-1) 100 mg DAILY PO ; Start 09/24/19 at 09:00 Folic Acid (Folic Acid) 1 mg DAILY PO ; Start 09/24/19 at 09:00 Vitals/I & O Vital Sign - Last 24 Hours 09/23/19 09/23/19 09/23/19 09/23/19 08:30 08:43 09:45 11:04 Resp 16 16 16 O2 Delivery Room Air Room Air Room Air Room Air 09/23/19 09/23/19 09/23/19 09/23/19 11:04 11:33 14:28 15:08 Temp 98.3 97.8 98.3 97.8 Pulse 74 80 Resp 20 16 16 18 B/P (MAP) 171/88 (115) 130/82 (98) Pulse Ox 95 96 O2 Delivery Room Air Room Air Room Air Room Air 09/23/19 09/23/19 09/23/19 09/23/19 15:30 19:00 20:13 21:09 Pulse 78 Resp 16 20 18 B/P (MAP) 150/79 (102) Pulse Ox 97 97 O2 Delivery Room Air Room Air Room Air Room Air 09/23/19 09/23/19 09/23/19 09/23/19 21:47 22:09 22:09 22:51 Pulse 81 Resp 18 18 18 17 B/P (MAP) 157/83 (107) Pulse Ox 97 97 97 96 O2 Delivery Room Air Room Air Room Air Room Air 09/24/19 09/24/19 03:00 07:28 Temp 98.3 98.3 Pulse 83 Resp 18 B/P (MAP) 149/81 (103) Pulse Ox 98 O2 Delivery Room Air Room Air Intake and Output 09/23/19 09/23/19 09/24/19 15:00 23:00 07:00 Intake Total 460 ml 1280 ml 1950 ml Output Total 2400 ml Balance 460 ml 1280 ml -450 ml PALOMA CHENG MD Sep 24, 2019 07:51
[2019-09-24] MEDS: MULTIVITAMIN with MINERAL TABLET. PO SCH (08:49)
[2019-09-24] MEDS: THIAMINE 100 MG TABLET. PO SCH (08:49)
[2019-09-24] MEDS: FOLIC ACID 1 MG TABLET. PO SCH (08:49)
[2019-09-24] MEDS: GABAPENTIN 100 MG CAPSULE. PO SCH ×3 (08:50→21:52)
[2019-09-24] MEDS: NICOTINE 21MG PATCH. TD SCH (08:50)
--- NOTE | 2019-09-24 10:12 | NUR ---
[facility]EL[facility] following. Discussed with RN. Sarmad Orellana in wound care, pt will not need the wound vac at discharge. Pt has been cleared by PAT team. [facility] will continue to follow.
--- NOTE | 2019-09-24 11:06 | PDOC ---
ORTHO PROGRESS NOTES Subjective Patient sitting up in chair at bedside with moderate pain after just finishing with occupational therapy. Post-op Day: 4 Procedure Right lower extremity fasciotomy related to compartment syndrome Vitals Vital Signs Date Time Temp Pulse Resp B/P (MAP) Pulse Ox O2 Delivery O2 Flow Rate FiO2 09/24/19 08:49 Room Air 09/24/19 07:15 98.4 80 20 153/86 (108) 97 98.4 Labs Laboratory Tests Test 09/23/19 04:05 09/24/19 06:45 Sodium Level 143 mmol/L (136-145) 140 mmol/L (136-145) Potassium Level 3.5 mmol/L (3.5-5.1) 3.7 mmol/L (3.5-5.1) Chloride Level 103 mmol/L (98-107) 99 mmol/L (98-107) Carbon Dioxide Level 40 mmol/L (21-32) 39 mmol/L (21-32) Anion Gap 0 (6-14) 2 (6-14) Blood Urea Nitrogen 13 mg/dL (7-20) 11 mg/dL (7-20) Creatinine 1.0 mg/dL (0.6-1.0) 1.0 mg/dL (0.6-1.0) Estimated GFR (Cockcroft-Gault) 58.9 58.9 BUN/Creatinine Ratio 13 (6-20) 11 (6-20) Glucose Level 107 mg/dL (70-99) 106 mg/dL (70-99) Calcium Level 8.3 mg/dL (8.5-10.1) 8.6 mg/dL (8.5-10.1) Phosphorus Level 3.6 mg/dL (2.6-4.7) 4.2 mg/dL (2.6-4.7) Magnesium Level 1.8 mg/dL (1.8-2.4) 1.4 mg/dL (1.8-2.4) Total Bilirubin 0.3 mg/dL (0.2-1.0) 0.3 mg/dL (0.2-1.0) Aspartate Amino Transf (AST/SGOT) 494 U/L (15-37) 379 U/L (15-37) Alanine Aminotransferase (ALT/SGPT) 204 U/L (14-59) 184 U/L (14-59) Alkaline Phosphatase 90 U/L (46-116) 93 U/L (46-116) Creatine Kinase 23365 U/L (26-192) 8620 U/L (26-192) Total Protein 4.8 g/dL (6.4-8.2) 5.0 g/dL (6.4-8.2) Albumin 1.8 g/dL (3.4-5.0) 1.9 g/dL (3.4-5.0) Albumin/Globulin Ratio 0.6 (1.0-1.7) 0.6 (1.0-1.7) Laboratory Tests Test 09/24/19 06:45 Sodium Level 140 mmol/L (136-145) Potassium Level 3.7 mmol/L (3.5-5.1) Chloride Level 99 mmol/L (98-107) Carbon Dioxide Level 39 mmol/L (21-32) Anion Gap 2 (6-14) Blood Urea Nitrogen 11 mg/dL (7-20) Creatinine 1.0 mg/dL (0.6-1.0) Estimated GFR (Cockcroft-Gault) 58.9 BUN/Creatinine Ratio 11 (6-20) Glucose Level 106 mg/dL (70-99) Calcium Level 8.6 mg/dL (8.5-10.1) Phosphorus Level 4.2 mg/dL (2.6-4.7) Magnesium Level 1.4 mg/dL (1.8-2.4) Total Bilirubin 0.3 mg/dL (0.2-1.0) Aspartate Amino Transf (AST/SGOT) 379 U/L (15-37) Alanine Aminotransferase (ALT/SGPT) 184 U/L (14-59) Alkaline Phosphatase 93 U/L (46-116) Creatine Kinase 8620 U/L (26-192) Total Protein 5.0 g/dL (6.4-8.2) Albumin 1.9 g/dL (3.4-5.0) Albumin/Globulin Ratio 0.6 (1.0-1.7) Notes Awake and alert Assessment and Plan Postoperative day #4 status post fasciotomy right lower extremity. Wound VAC in place. Sensation intact at tips of the toes. Continue with occupational therapy and physical therapy. BRIJESH SHARPE APRN Sep 24, 2019 11:06
[2019-09-24] MEDS: LORazepam 1 MG TABLET PO PRN (11:41)
--- NOTE | 2019-09-24 12:03 | PDOC ---
Renal-Progress Notes Subjective Notes Notes NO NEW COMPLAINTS History of Present Illness Hx of present illness STABLE Vitals Vitals Vital Signs Date Time Temp Pulse Resp B/P (MAP) Pulse Ox O2 Delivery O2 Flow Rate FiO2 09/24/19 11:36 Room Air 09/24/19 11:02 98.6 99 18 112/59 (76) 99 98.6 Weight Weight [ ] I.O. Intake and Output Intake and Output 09/24/19 07:00 Intake Total 3690 ml Output Total 2400 ml Balance 1290 ml Intake Oral 1440 ml IV Total 2250 ml Output Urine Total 2400 ml # Voids 6 Labs Labs Laboratory Tests Test 09/24/19 06:45 Sodium Level 140 mmol/L (136-145) Potassium Level 3.7 mmol/L (3.5-5.1) Chloride Level 99 mmol/L (98-107) Carbon Dioxide Level 39 mmol/L (21-32) Anion Gap 2 (6-14) Blood Urea Nitrogen 11 mg/dL (7-20) Creatinine 1.0 mg/dL (0.6-1.0) Estimated GFR (Cockcroft-Gault) 58.9 BUN/Creatinine Ratio 11 (6-20) Glucose Level 106 mg/dL (70-99) Calcium Level 8.6 mg/dL (8.5-10.1) Phosphorus Level 4.2 mg/dL (2.6-4.7) Magnesium Level 1.4 mg/dL (1.8-2.4) Total Bilirubin 0.3 mg/dL (0.2-1.0) Aspartate Amino Transf (AST/SGOT) 379 U/L (15-37) Alanine Aminotransferase (ALT/SGPT) 184 U/L (14-59) Alkaline Phosphatase 93 U/L (46-116) Creatine Kinase 8620 U/L (26-192) Total Protein 5.0 g/dL (6.4-8.2) Albumin 1.9 g/dL (3.4-5.0) Albumin/Globulin Ratio 0.6 (1.0-1.7) Review of Systems Constitutional: yes: alert, oriented Ears/Nose/Throat: Yes: no symptom reported Eyes: Yes: no symptom reported Pulmonary: Yes no symptom reported Cardiovascular: Yes no symptom reported Gastrointestional: Yes: no symptom reported Genitourinary: Yes: no symptom reported Musculoskeletal: Yes: muscle pain, muscle stiffness Skin: Yes no symptom reported Psychiatric/Neurological: Yes: no symptom reported Endocrine: Yes: no symptom reported Hematologic/Lymphatic: Yes: no symptom reported Physical Exam General Appearance: no apparent distress Respiratory: decreased breath sounds Heart: S1S2 Abdomen: soft, bowel sounds present Genitourinary: bladder flat Extremities: pulses present Neurology: alert, oriented Assessment Assessment IMP [id number] RHABDOMYOLYSIS-CK DECREASING S/P FASCIOTOMY ETOH ABUSE PLAN HCO3 GTT HYDRATION AVOID NEPHROTOXINS WILL SIGN OFF PLEASE CALL IF NEEDED ANGELA SHEIKH MD Sep 24, 2019 12:03
--- NOTE | 2019-09-24 12:08 | NUR ---
Pt called to get help off of the commode. [employer] was headed into room immediately after pt called and as she was entering she heard the pt fall. Pt was found sitting flat on bottom and stated "I almost made it off the commode by myself". Pt. stated she landed on her side and did not hit her head. Dr. Morrison on the unit and notified. Pt. instructed on waiting for help to arrive when wanting to get up. Pt. verbalized understanding. Pt placed back in chair on alarm with call light in hand and instructed to wait for help to arrive when she wants to get up.
[2019-09-24] MEDS: MORPHINE SULFATE 2 MG/ML VIAL. IVP PRN ×2 (14:46→23:00)
--- NOTE | 2019-09-24 14:52 | NUR ---
Pt. found getting from commode to bed without calling for help again after multiple conversations on the importance of calling for help when up. Pt. in bed, bed alarm on.
--- NOTE | 2019-09-24 15:56 | NUR ---
Wound Care: Patient seen for follow up wound care for right lower leg open incision from recent fasciotomy. We placed a wound vac on Sunday. Dressing removed and wound cleansed and assessed. Wound and entire leg appears more swollen and the tissue appears more dusky than that on Sunday. Dr. Morrison notified. Redressed with Xeroform gauze, ABD pad, and kerlix at this time. Wound care will also notify ortho of recent findings. We will see patient tomorrow 09/25/19 to reassess. Bed lowered and call light in reach.
--- NOTE | 2019-09-24 16:13 | NUR ---
Wound Care Informed Dr. Finch of RLE swelling and dusky wound bed appearance, he will evaluate pt tomorrow. He stated he does want pt to go home on wound vac, will apply for [facility] hitesh vac at this time, hitesh application left at pt's bedside to fill out income information.
[2019-09-25 03:00] VITALS: BP 132/70
[2019-09-25] MEDS: SODIUM BICARBONATE VIAL 150 MEQ in IV STERILE WATER 1,000 ML IV SCH ×3 (05:26→18:35)
[2019-09-25] MEDS: oxyCODONE/APAP 5/325 1 TAB TABLET PO PRN ×4 (05:32→22:06)
[2019-09-25 07:15] VITALS: BP 107/61
[2019-09-25] MEDS: THIAMINE 100 MG TABLET. PO SCH (08:23)
[2019-09-25] MEDS: GABAPENTIN 100 MG CAPSULE. PO SCH ×3 (08:23→22:06)
[2019-09-25] MEDS: NICOTINE 21MG PATCH. TD SCH (08:23)
[2019-09-25] MEDS: MULTIVITAMIN with MINERAL TABLET. PO SCH (08:23)
[2019-09-25] MEDS: FOLIC ACID 1 MG TABLET. PO SCH (08:23)
[2019-09-25 08:34] LABS: ALBUMIN 1.9 g/dL (3.4-5.0); ALBUMIN/GLOBULIN RATIO 0.8 (1.0-1.7); CALCIUM 8.7 mg/dL (8.5-10.1); CREATININE 0.8 mg/dL (0.6-1.0); GFR 76.2; POTASSIUM 3.5 mmol/L (3.5-5.1); TOTAL BILIRUBIN 0.4 mg/dL (0.2-1.0); TOTAL PROTEIN 4.4 g/dL (6.4-8.2)
--- NOTE | 2019-09-25 08:58 | PDOC ---
ORTHO PROGRESS NOTES Subjective Her pain is tolerable. Overall it has been getting better. She feels like she can wiggle her toes just a little bit lately. Vitals Vital Signs Date Time Temp Pulse Resp B/P (MAP) Pulse Ox O2 Delivery O2 Flow Rate FiO2 09/25/19 08:27 Room Air 09/25/19 07:15 98.5 69 16 107/61 (76) 97 98.5 09/24/19 12:10 99.0 Labs Laboratory Tests Test 09/24/19 06:45 09/25/19 06:45 Sodium Level 140 mmol/L (136-145) 142 mmol/L (136-145) Potassium Level 3.7 mmol/L (3.5-5.1) 3.5 mmol/L (3.5-5.1) Chloride Level 99 mmol/L (98-107) 100 mmol/L (98-107) Carbon Dioxide Level 39 mmol/L (21-32) 40 mmol/L (21-32) Anion Gap 2 (6-14) 2 (6-14) Blood Urea Nitrogen 11 mg/dL (7-20) 14 mg/dL (7-20) Creatinine 1.0 mg/dL (0.6-1.0) 0.8 mg/dL (0.6-1.0) Estimated GFR (Cockcroft-Gault) 58.9 76.2 BUN/Creatinine Ratio 11 (6-20) 18 (6-20) Glucose Level 106 mg/dL (70-99) 135 mg/dL (70-99) Calcium Level 8.6 mg/dL (8.5-10.1) 8.7 mg/dL (8.5-10.1) Phosphorus Level 4.2 mg/dL (2.6-4.7) Magnesium Level 1.4 mg/dL (1.8-2.4) Total Bilirubin 0.3 mg/dL (0.2-1.0) 0.4 mg/dL (0.2-1.0) Aspartate Amino Transf (AST/SGOT) 379 U/L (15-37) 321 U/L (15-37) Alanine Aminotransferase (ALT/SGPT) 184 U/L (14-59) 190 U/L (14-59) Alkaline Phosphatase 93 U/L (46-116) 72 U/L (46-116) Creatine Kinase 8620 U/L (26-192) 5456 U/L (26-192) Total Protein 5.0 g/dL (6.4-8.2) 4.4 g/dL (6.4-8.2) Albumin 1.9 g/dL (3.4-5.0) 1.9 g/dL (3.4-5.0) Albumin/Globulin Ratio 0.6 (1.0-1.7) 0.8 (1.0-1.7) Laboratory Tests Test 09/25/19 06:45 Sodium Level 142 mmol/L (136-145) Potassium Level 3.5 mmol/L (3.5-5.1) Chloride Level 100 mmol/L (98-107) Carbon Dioxide Level 40 mmol/L (21-32) Anion Gap 2 (6-14) Blood Urea Nitrogen 14 mg/dL (7-20) Creatinine 0.8 mg/dL (0.6-1.0) Estimated GFR (Cockcroft-Gault) 76.2 BUN/Creatinine Ratio 18 (6-20) Glucose Level 135 mg/dL (70-99) Calcium Level 8.7 mg/dL (8.5-10.1) Total Bilirubin 0.4 mg/dL (0.2-1.0) Aspartate Amino Transf (AST/SGOT) 321 U/L (15-37) Alanine Aminotransferase (ALT/SGPT) 190 U/L (14-59) Alkaline Phosphatase 72 U/L (46-116) Creatine Kinase 5456 U/L (26-192) Total Protein 4.4 g/dL (6.4-8.2) Albumin 1.9 g/dL (3.4-5.0) Albumin/Globulin Ratio 0.8 (1.0-1.7) Notes On examination, she is lying in bed. Examination of her right lower extremity reveals the open fasciotomy incision with healthy appearing tissue underneath and granulation tissue present. No erythema cellulitic change or drainage that is purulent. She is unable to actively dorsiflex at her ankle. Assessment and Plan We will continue to monitor her peroneal nerve. I did discuss her care with the wound care team and I recommend that she be discharged on a wound VAC with follow-up next week in Dr. Shook's clinic. CORTNEY GRIFFIN II, MD 19, 2020 08:58
[2019-09-25] MEDS ORDERED: FOLIC ACID 1 MG TABLET. PO SCH (09:00)
[2019-09-25] MEDS ORDERED: THIAMINE INJ 100 MG in IV DEXTROSE 5% 50 ML IV SCH (09:00)
[2019-09-25] MEDS ORDERED: MULTIVITAMIN with MINERAL TABLET. PO SCH (09:00)
--- NOTE | 2019-09-25 10:40 | NUR ---
[facility] following. Discussed with RN, pt likely can discharge home with self care today. PAT team has cleared pt. MEL[facility] will continue to follow. Addendum: 09/25/19 at 1618 by NATALY REILLY Per RN, pt wondering if pt would be able to get any hitesh home health. [facility], they may be able to provide hitesh home health. MELBA faxed referral, awaiting decision. Home health discharge orders will be needed. RN notified.
[2019-09-25 11:06] VITALS: BP 119/64
--- NOTE | 2019-09-25 11:08 | PDOC ---
PROGRESS NOTES Chief Complaint Chief Complaint Compartment syndrome status post surgical decompression Alcohol abuse disorder, concern for withdrawl, Leukoctosis Erythrocytosis from dehydration Acute renal failure secondary to rhabdomyolisis Transaminitis. poss rhabdo or etOH abuse, Lactic acidosis History of Present Illness History of Present Illness Ms Calderón is a 49 year old female with no past medical history who unfortunately abuses alcohol today admitted 09/20/2019 after being found down for unknown time, [place] [address] and was unable to feel her right leg which was swollen and tense. No headache no chest pain, no palpitations no nausea or vomiting. S/p Right lower leg fasciotomy with Dr. Shook 09/20/2019. 09/20: CPK 77170. LFTs up 09/21: She is asking for a cigarette today. Cr stable at 1.3. CK and LFTs pending. She tells me she thinks she has some sensation back in her toes. No CP or SOB. 09/22: Pain in foot today, still with muscular weakness[place] [address], AST 494, ALT 209, Cr 1. No CP or SOB. She really wants to leave to smoke. 09/23: Overnight tolerated bicarb gtt well. CK 8620. AST 379, ALT 184. She is asking if she will ever get feeling all the way back. Able to move toes. No CP or SOB. CK 5456 today. Feeling better, still unable to dorsiflex. She understands peroneal nerve damage probably occurred when she was down. No SOB or CP. D/w ortho need for wound vac and f/u outpatient in 1 week in the office for eventual consideration of skin grafting. Plan: cont IV fluid, check CK daily until close to 1999 follow recommendations from ortho pain management CIWA protocol - will add gabapentin per new recommendations DVT prophylaxis: heparin when approved by [employer] consultant. Nicotine patch Further recommendations based on clinical course. Vitals Vitals Vital Signs Date Time Temp Pulse Resp B/P (MAP) Pulse Ox O2 Delivery O2 Flow Rate FiO2 09/25/19 10:07 Room Air 09/25/19 07:15 98.5 69 16 107/61 (76) 97 98.5 09/24/19 12:10 99.0 Physical Exam General: Alert, Oriented X3, Cooperative, No acute distress Heart: Regular rate Abdomen: Normal bowel sounds, Soft, No tenderness Extremities: No cyanosis Skin: No breakdown Labs LABS Laboratory Tests Test 09/25/19 06:45 Sodium Level 142 mmol/L (136-145) Potassium Level 3.5 mmol/L (3.5-5.1) Chloride Level 100 mmol/L (98-107) Carbon Dioxide Level 40 mmol/L (21-32) Anion Gap 2 (6-14) Blood Urea Nitrogen 14 mg/dL (7-20) Creatinine 0.8 mg/dL (0.6-1.0) Estimated GFR (Cockcroft-Gault) 76.2 BUN/Creatinine Ratio 18 (6-20) Glucose Level 135 mg/dL (70-99) Calcium Level 8.7 mg/dL (8.5-10.1) Total Bilirubin 0.4 mg/dL (0.2-1.0) Aspartate Amino Transf (AST/SGOT) 321 U/L (15-37) Alanine Aminotransferase (ALT/SGPT) 190 U/L (14-59) Alkaline Phosphatase 72 U/L (46-116) Creatine Kinase 5456 U/L (26-192) Total Protein 4.4 g/dL (6.4-8.2) Albumin 1.9 g/dL (3.4-5.0) Albumin/Globulin Ratio 0.8 (1.0-1.7) Comment Review of Relevant I have reviewed the following items jacob (where applicable) has been applied. Labs Laboratory Tests Test 09/24/19 06:45 09/25/19 06:45 Sodium Level 140 mmol/L (136-145) 142 mmol/L (136-145) Potassium Level 3.7 mmol/L (3.5-5.1) 3.5 mmol/L (3.5-5.1) Chloride Level 99 mmol/L (98-107) 100 mmol/L (98-107) Carbon Dioxide Level 39 mmol/L (21-32) 40 mmol/L (21-32) Anion Gap 2 (6-14) 2 (6-14) Blood Urea Nitrogen 11 mg/dL (7-20) 14 mg/dL (7-20) Creatinine 1.0 mg/dL (0.6-1.0) 0.8 mg/dL (0.6-1.0) Estimated GFR (Cockcroft-Gault) 58.9 76.2 BUN/Creatinine Ratio 11 (6-20) 18 (6-20) Glucose Level 106 mg/dL (70-99) 135 mg/dL (70-99) Calcium Level 8.6 mg/dL (8.5-10.1) 8.7 mg/dL (8.5-10.1) Phosphorus Level 4.2 mg/dL (2.6-4.7) Magnesium Level 1.4 mg/dL (1.8-2.4) Total Bilirubin 0.3 mg/dL (0.2-1.0) 0.4 mg/dL (0.2-1.0) Aspartate Amino Transf (AST/SGOT) 379 U/L (15-37) 321 U/L (15-37) Alanine Aminotransferase (ALT/SGPT) 184 U/L (14-59) 190 U/L (14-59) Alkaline Phosphatase 93 U/L (46-116) 72 U/L (46-116) Creatine Kinase 8620 U/L (26-192) 5456 U/L (26-192) Total Protein 5.0 g/dL (6.4-8.2) 4.4 g/dL (6.4-8.2) Albumin 1.9 g/dL (3.4-5.0) 1.9 g/dL (3.4-5.0) Albumin/Globulin Ratio 0.6 (1.0-1.7) 0.8 (1.0-1.7) Laboratory Tests Test 09/25/19 06:45 Sodium Level 142 mmol/L (136-145) Potassium Level 3.5 mmol/L (3.5-5.1) Chloride Level 100 mmol/L (98-107) Carbon Dioxide Level 40 mmol/L (21-32) Anion Gap 2 (6-14) Blood Urea Nitrogen 14 mg/dL (7-20) Creatinine 0.8 mg/dL (0.6-1.0) Estimated GFR (Cockcroft-Gault) 76.2 BUN/Creatinine Ratio 18 (6-20) Glucose Level 135 mg/dL (70-99) Calcium Level 8.7 mg/dL (8.5-10.1) Total Bilirubin 0.4 mg/dL (0.2-1.0) Aspartate Amino Transf (AST/SGOT) 321 U/L (15-37) Alanine Aminotransferase (ALT/SGPT) 190 U/L (14-59) Alkaline Phosphatase 72 U/L (46-116) Creatine Kinase 5456 U/L (26-192) Total Protein 4.4 g/dL (6.4-8.2) Albumin 1.9 g/dL (3.4-5.0) Albumin/Globulin Ratio 0.8 (1.0-1.7) Medications Current Medications Morphine Sulfate (Morphine Sulfate) 2 mg PRN Q3HRS PRN IVP PAIN SEVERE Last administered on 09/24/19at 23:00; Start 09/20/19 at 14:45 Acetaminophen (Tylenol) 500 mg PRN Q6HRS PRN PO MILD PAIN / TEMP; Start 09/20/19 at 14:45 Ondansetron HCl (Zofran) 4 mg PRN Q6HRS PRN IVP NAUSEA/VOMITING; Start 09/20/19 at 14:45 Sodium Chloride 1,000 ml @ 125 mls/hr Q8H IV Last administered on 09/21/19at 00:40; Start 09/20/19 at 15:00; Stop 09/21/19 at 10:22; Status DC Multivitamins 10 ml/Thiamine HCl 100 mg/Folic Acid 1 mg/Sodium Chloride 1,011.2 ml @ 1,000.088 mls/hr DAILY IV Last administered on 09/23/19at 08:45; Start 09/21/19 at 09:00; Stop 09/23/19 at 17:09; Status DC Lorazepam (Ativan) 4 mg PRN Q1HR PRN PO For CIWA 8-14 Last administered on 09/21/19at 12:08; Start 09/20/19 at 14:45; Stop 09/22/19 at 09:44; Status DC Lorazepam (Ativan) 8 mg PRN Q1HR PRN PO For CIWA 15 or greater; Start 09/20/19 at 14:45; Stop 09/22/19 at 09:44; Status DC Lorazepam (Ativan Inj) 2 mg PRN Q1HR PRN IV For CIWA 8-14 Last administered on 09/25/19at 05:32; Start 09/20/19 at 14:45 Lorazepam (Ativan Inj) 4 mg PRN Q1HR PRN IV For CIWA 15 or greater; Start 09/20/19 at 14:45; Stop 09/22/19 at 09:44; Status DC Haloperidol Lactate (Haldol Inj) 5 mg PRN Q4HRS PRN IVP Hallucinatns,Con fusn,Delirium; Start 09/20/19 at 14:45 Diphenhydramine HCl (Benadryl) 25 mg PRN Q15MIN PRN IVP EPS symptoms 2'Haldol admin; Start 09/20/19 at 14:45 Clonidine HCl (Catapres) 0.1 mg PRN Q1HR PRN PO SBP > 180 or DBP > 100, MRX3 Last administered on 09/20/19at 16:30; Start 09/20/19 at 14:45 Lorazepam (Ativan Inj) 2 mg PRN Q15MIN PRN IV SEE COMMENTS; Start 09/20/19 at 14:45; Stop 09/21/19 at 10:46; Status DC Multivitamins 10 ml/Thiamine HCl 100 mg/Folic Acid 1 mg/Sodium Chloride 1,011.2 ml @ 100 mls/ hr DAILY IV ; Start 09/21/19 at 09:00; Stop 09/25/19 at 19:07; Status UNV Multivitamins (Thera M Plus) 1 tab DAILY PO ; Start 09/25/19 at 09:00; Status UNV Folic Acid (Folic Acid) 1 mg DAILY PO ; Start 09/25/19 at 09:00; Status UNV Thiamine HCl 100 mg/Dextrose 51 ml @ 100 mls/hr DAILY IV ; Start 09/25/19 at 09:00; Stop 09/29/19 at 09:31; Status UNV Lorazepam (Ativan Inj) 2 mg PRN Q1HR PRN IV For CIWA 8-14; Start 09/20/19 at 14:45; Status UNV Lorazepam (Ativan Inj) 4 mg PRN Q1HR PRN IV For CIWA 15 or greater; Start 09/20/19 at 14:45; Status UNV Diphenhydramine HCl (Benadryl) 25 mg PRN Q15MIN PRN IVP EPS symptoms 2'Haldol admin; Start 09/20/19 at 14:45; Status UNV Morphine Sulfate (Morphine Sulfate) 2 mg PRN Q3HRS PRN IV PAIN; Start 09/20/19 at 14:45; Status UNV Acetaminophen (Tylenol) 500 mg PRN Q6HRS PRN PO MILD PAIN / TEMP; Start 09/20/19 at 14:45; Status UNV Ondansetron HCl (Zofran) 4 mg PRN Q6HRS PRN IVP NAUSEA/VOMITING; Start 09/20/19 at 14:45; Status UNV Sodium Chloride 1,000 ml @ 125 mls/hr 1X ONCE IV ; Start 09/20/19 at 14:45; Stop 09/20/19 at 14:57; Status DC Multivitamins 10 ml/Thiamine HCl 100 mg/Folic Acid 1 mg/Sodium Chloride 1,011.2 ml @ 1,000.088 mls/hr 1X ONCE IV Last administered on 09/20/19at 08:00; Start 09/20/19 at 08:00; Stop 09/20/19 at 16:59; Status DC Morphine Sulfate (Morphine Sulfate) 2 mg ONCE ONCE IVP ; Start 09/20/19 at 04:00; Stop 09/20/19 at 16:58; Status DC Ondansetron HCl (Zofran) 4 mg ONCE ONCE IVP ; Start 09/20/19 at 04:00; Stop 09/20/19 at 16:58; Status DC Sodium Chloride 1,000 ml @ 1,000 mls/hr Q1H ONCE IV ; Start 09/20/19 at 04:00; Stop 09/20/19 at 16:58; Status DC Sodium Bicarbonate 150 meq/Sterile Water 1,150 ml @ 150 mls/hr Q7H40M IV Last administered on 09/25/19at 05:26; Start 09/21/19 at 10:45 Oxycodone/ Acetaminophen (Percocet 5/325) 1 tab PRN Q4HRS PRN PO MODERATE- SEVERE PAIN Last administered on 09/25/19at 10:07; Start 09/21/19 at 10:45 Cefazolin Sodium (Ancef) 1 gm STK-MED ONCE IVP ; Start 09/20/19 at 08:00; Stop 09/22/19 at 09:01; Status DC Lorazepam (Ativan) 1 mg PRN Q4HRS PRN PO anxiety Last administered on 09/24/19at 11:41; Start 09/22/19 at 09:45 Nicotine (Nicoderm Cq 21mg) 1 patch DAILY TD Last administered on 09/25/19at 08:23; Start 09/22/19 at 09:45 Gabapentin (Neurontin) 100 mg TID PO Last administered on 09/25/19at 08:23; Start 09/22/19 at 12:00 Propofol 20 ml @ As Directed STK-MED ONCE IV ; Start 09/20/19 at 06:58; Stop 09/23/19 at 09:43; Status DC Lidocaine HCl (Lidocaine Pf 2% Vial) 5 ml STK-MED ONCE .ROUTE ; Start 09/20/19 at 06:58; Stop 09/23/19 at 09:43; Status DC Fentanyl Citrate (Fentanyl 2ml Vial) 100 mcg STK-MED ONCE .ROUTE ; Start 09/20/19 at 06:59; Stop 09/23/19 at 09:43; Status DC Cefazolin Sodium (Ancef) 1 gm STK-MED ONCE IVP ; Start 09/20/19 at 07:52; Stop 09/23/19 at 09:43; Status DC Sevoflurane (Ultane) 30 ml STK-MED ONCE IH ; Start 09/20/19 at 07:52; Stop 09/23/19 at 09:43; Status DC Dexamethasone Sodium Phosphate (Decadron) 4 mg STK-MED ONCE .ROUTE ; Start 09/20/19 at 07:54; Stop 09/23/19 at 09:43; Status DC Phenylephrine HCl (PHENYLEPHRINE in 0.9% NACL PF) 1 mg STK-MED ONCE IV ; Start 09/20/19 at 07:58; Stop 09/23/19 at 09:43; Status DC Hydromorphone HCl (Dilaudid) 2 mg STK-MED ONCE .ROUTE ; Start 09/20/19 at 08:28; Stop 09/23/19 at 09:43; Status DC Ondansetron HCl (Zofran) 4 mg STK-MED ONCE .ROUTE ; Start 09/20/19 at 08:29; Stop 09/23/19 at 09:44; Status DC Lidocaine HCl (Lidocaine 1% 20ml Vial) 20 ml STK-MED ONCE .ROUTE ; Start 09/20/19 at 05:06; Stop 09/23/19 at 09:44; Status DC Ondansetron HCl (Zofran) 4 mg STK-MED ONCE .ROUTE ; Start 09/20/19 at 05:06; Stop 09/23/19 at 09:44; Status DC Morphine Sulfate (Morphine Sulfate) 4 mg STK-MED ONCE .ROUTE ; Start 09/20/19 at 05:07; Stop 09/23/19 at 09:44; Status DC Sodium Chloride (NORMAL SALINE FLUSH for STERILE FIELD) 10 ml STK-MED ONCE .ROUTE ; Start 09/20/19 at 05:19; Stop 09/23/19 at 09:44; Status DC Multivitamins (Thera M Plus) 1 tab DAILY PO Last administered on 09/25/19at 08:23; Start 09/24/19 at 09:00 Thiamine Mononitrate (Vitamin B-1) 100 mg DAILY PO Last administered on 09/25/19at 08:23; Start 09/24/19 at 09:00 Folic Acid (Folic Acid) 1 mg DAILY PO Last administered on 09/25/19at 08:23; Start 09/24/19 at 09:00 Magnesium Sulfate 100 ml @ 25 mls/hr 1X ONCE IV ; Start 09/25/19 at 11:30; Stop 09/25/19 at 15:29 Vitals/I & O Vital Sign - Last 24 Hours 09/24/19 09/24/19 09/24/19 09/24/19 11:36 12:10 12:54 14:46 Temp 97.6 97.6 Pulse 89 Resp 18 B/P (MAP) 131/89 (103) O2 Delivery Room Air Room Air Room Air Room Air O2 Flow Rate 99.0 09/24/19 09/24/19 09/24/19 09/24/19 15:09 18:20 19:00 20:00 Temp 98.0 98.2 98.0 98.2 Pulse 85 85 Resp 20 22 B/P (MAP) 132/71 (91) 96/56 (69) Pulse Ox 97 90 O2 Delivery Room Air Room Air Room Air Room Air 09/24/19 09/25/19 09/25/19 09/25/19 22:53 03:00 07:15 08:27 Temp 98.1 98.4 98.5 98.1 98.4 98.5 Pulse 83 86 69 Resp 20 18 16 B/P (MAP) 128/68 (88) 132/70 (90) 107/61 (76) Pulse Ox 94 96 97 O2 Delivery Room Air Room Air Room Air Room Air 09/25/19 10:07 O2 Delivery Room Air Intake and Output 09/24/19 09/24/19 09/25/19 14:59 22:59 06:59 Intake Total 280 ml 240 ml Output Total 500 ml 350 ml 1550 ml Balance -220 ml -110 ml -1550 ml PALOMA CHENG MD Sep 25, 2019 11:08
[2019-09-25] MEDS ORDERED: MAGNESIUM SULFATE 4GM 100 ML IV ONE (11:30)
[2019-09-25] MEDS: LORazepam 1 MG TABLET PO PRN ×2 (13:28→22:06)
--- NOTE | 2019-09-25 14:15 | NUR ---
Wound Care Wound care follow up for application of wound vac per Dr Finch. Dressing removed, wound cleansed and redressed. Wound is draining copious amount of serosanguineous drainage. Vac applied with contact layer, desouza foam at 125 mmHg continuous suction, good seal obtained. Chelo vac application obtained and faxed to [facility]. Educated pt on wound care plan of care, pt verbalized understanding of teaching. Educated pt on PU prevention, pt verbalized understanding. Pt will need reinforcement of teaching due to being very lethargic at time of teaching. WC will continue to follow for possible changes.
[2019-09-25 15:02] VITALS: BP 119/71
[2019-09-25 19:00] VITALS: BP 115/69
--- NOTE | 2019-09-25 19:30 | NUR ---
pt has full bag of bicarb so no need for the 5 bag at this time
[2019-09-25 23:00] VITALS: BP 122/73
[2019-09-26] MEDS: LORazepam 1 MG TABLET PO PRN ×2 (02:54→08:12)
[2019-09-26] MEDS: oxyCODONE/APAP 5/325 1 TAB TABLET PO PRN ×3 (02:55→11:48)
[2019-09-26 03:00] VITALS: BP 119/76
[2019-09-26] MEDS: SODIUM BICARBONATE VIAL 150 MEQ in IV STERILE WATER 1,000 ML IV SCH ×2 (06:09→09:55)
[2019-09-26 07:00] VITALS: BP 127/73
--- NOTE | 2019-09-26 07:56 | NUR ---
Wound Care- [facility] wound vac application has been approved, will apply home vac when ready to discharge.
[2019-09-26] MEDS: GABAPENTIN 100 MG CAPSULE. PO SCH ×2 (08:11→14:42)
[2019-09-26] MEDS: MULTIVITAMIN with MINERAL TABLET. PO SCH (08:12)
[2019-09-26] MEDS: THIAMINE 100 MG TABLET. PO SCH (08:12)
[2019-09-26] MEDS: FOLIC ACID 1 MG TABLET. PO SCH (08:12)
[2019-09-26] MEDS: NICOTINE 21MG PATCH. TD SCH (08:12)
[2019-09-26] MEDS ORDERED: GABA-585 PO (10:23)
[2019-09-26] MEDS ORDERED: OXYC1TAB15 PO (10:23)
--- NOTE | 2019-09-26 10:27 | SNU/HH DC ---
DISCHARGE WITH HOME HEALTH DISCHARGE INFORMATION: Discharge Date: Sep 26, 2019 Final Diagnosis: Right lower extremity compartment syndrome Condition on Discharge: Stable CODE STATUS: Code Status: Full HOME HEALTH: Face to Face: I certify this patient is under my care and that I, or a nurse practitioner or physician's care team assistant working with me, had a face to face encounter that meets the physician face to face encounter requirements with this patient on 09/26/2019. Medical Complications: Falls Group Home For: Assess & Educate Safety, Medication Management RN For Eval/Treatment: Yes Physical Therapy For: Evalulation/Treatment Occupational Therapy For: Evaluation/Treatment Pt Meets Homebound Status: Extreme weakness w/ amb. POST DISCHARGE ORDERS: Activity Instructions for Disc: Resume previous activity Weight Bearing Status after Di: Full weight bearing DIET AFTER DISCHARGE: Regular CHECKS AFTER DISCHARGE: Checks after discharge: Check blood press - daily CERTIFICATION STATEMENT: Certification Statement: Certification Statement: Based on the above finding, I certify that this patient is confined to the home and needs intermittent assisted care, physical therapy and/or speech therapy, or continues to need occupational therapy.~ This patient is under my care, and I have initiated the establishment of the plan of care.~ This patient will be followed by myself or a community physician who will periodically review the plan of care. Home Meds Active Scripts Gabapentin (GABAPENTIN ) 100 Mg Capsule, 100 MG PO TID for Neuropathy for 30 Days, #90 CAP Prov:PALOMA CHENG MD 09/26/19 Oxycodone/Apap 5-325 (PERCOCET 5-325 MG TABLET ) 1 Each Tablet, 1 TAB PO PRN Q4HRS PRN for MODERATE-SEVERE PAIN for 6 Days, #15 TAB Prov:PALOMA CHENG MD 09/26/19 PALOMA CHENG MD Sep 26, 2019 10:27
--- NOTE | 2019-09-26 10:31 | PDOC ---
PROGRESS NOTES Chief Complaint Chief Complaint Compartment syndrome status post surgical decompression Alcohol abuse disorder, concern for withdrawl, Leukoctosis Erythrocytosis from dehydration Acute renal failure secondary to rhabdomyolisis Transaminitis. poss rhabdo or etOH abuse, Lactic acidosis History of Present Illness History of Present Illness Ms Calderón is a 49 yo F with no past medical history who unfortunately abuses alcohol today admitted 09/20/2019 after being found down for unknown time, [place] [address] and was unable to feel her right leg which was swollen and tense. No headache no chest pain, no palpitations no nausea or vomiting. S/p Right low er leg fasciotomy with Dr. Shook 09/20/2019. 09/20: CPK 79377. LFTs up 09/21: She is asking for a cigarette today. Cr stable at 1.3. CK and LFTs pending. She tells me she thinks she has some sensation back in her toes. No CP or SOB. 09/22: Pain in foot today, still with muscular weakness[place] [address], AST 494, ALT 209, Cr 1. No CP or SOB. She really wants to leave to smoke. 09/23: Overnight tolerated bicarb gtt well. CK 8620. AST 379, ALT 184. She is asking if she will ever get feeling all the way back. Able to move toes. No CP or SOB. 09/24: CK 5456 today. Feeling better, still unable to dorsiflex. She understands peroneal nerve damage probably occurred when she was down. No SOB or CP. D/w ortho need for wound vac and f/u outpatient in 1 week in the office for eventual consideration of skin grafting. Wound vac in place, plans for home wound vac, home health. She is feeling well, wants to go home. Really asking for a cigarette. No SOB or CP. Plan: cont IV fluid, check CK daily until close to 1999 follow recommendations from ortho pain management CIIL protocol - will add gabapentin per new recommendations DVT prophylaxis: heparin when approved by retirement sales consultant. Nicotine patch Further recommendations based on clinical course. Vitals Vitals Vital Signs Date Time Temp Pulse Resp B/P (MAP) Pulse Ox O2 Delivery O2 Flow Rate FiO2 09/26/19 08:45 Room Air 09/26/19 07:00 98.0 77 16 127/73 (91) 100 98.0 Physical Exam General: Alert, Oriented X3, Cooperative, No acute distress Heart: Regular rate Abdomen: Normal bowel sounds, Soft, No tenderness Extremities: No cyanosis Skin: No breakdown Comment Review of Relevant I have reviewed the following items jacob (where applicable) has been applied. Labs Laboratory Tests Test 09/25/19 06:45 Sodium Level 142 mmol/L (136-145) Potassium Level 3.5 mmol/L (3.5-5.1) Chloride Level 100 mmol/L (98-107) Carbon Dioxide Level 40 mmol/L (21-32) Anion Gap 2 (6-14) Blood Urea Nitrogen 14 mg/dL (7-20) Creatinine 0.8 mg/dL (0.6-1.0) Estimated GFR (Cockcroft-Gault) 76.2 BUN/Creatinine Ratio 18 (6-20) Glucose Level 135 mg/dL (70-99) Calcium Level 8.7 mg/dL (8.5-10.1) Total Bilirubin 0.4 mg/dL (0.2-1.0) Aspartate Amino Transf (AST/SGOT) 321 U/L (15-37) Alanine Aminotransferase (ALT/SGPT) 190 U/L (14-59) Alkaline Phosphatase 72 U/L (46-116) Creatine Kinase 5456 U/L (26-192) Total Protein 4.4 g/dL (6.4-8.2) Albumin 1.9 g/dL (3.4-5.0) Albumin/Globulin Ratio 0.8 (1.0-1.7) Medications Current Medications Morphine Sulfate (Morphine Sulfate) 2 mg PRN Q3HRS PRN IVP PAIN SEVERE Last administered on 09/24/19at 23:00; Start 09/20/19 at 14:45; Stop 09/25/19 at 11:05; Status DC Acetaminophen (Tylenol) 500 mg PRN Q6HRS PRN PO MILD PAIN / TEMP; Start 09/20/19 at 14:45 Ondansetron HCl (Zofran) 4 mg PRN Q6HRS PRN IVP NAUSEA/VOMITING; Start 09/20/19 at 14:45 Sodium Chloride 1,000 ml @ 125 mls/hr Q8H IV Last administered on 09/21/19at 00:40; Start 09/20/19 at 15:00; Stop 09/21/19 at 10:22; Status DC Multivitamins 10 ml/Thiamine HCl 100 mg/Folic Acid 1 mg/Sodium Chloride 1,011.2 ml @ 1,000.088 mls/hr DAILY IV Last administered on 09/23/19at 08:45; Start 09/21/19 at 09:00; Stop 09/23/19 at 17:09; Status DC Lorazepam (Ativan) 4 mg PRN Q1HR PRN PO For CIWA 8-14 Last administered on 09/21/19at 12:08; Start 09/20/19 at 14:45; Stop 09/22/19 at 09:44; Status DC Lorazepam (Ativan) 8 mg PRN Q1HR PRN PO For CIWA 15 or greater; Start 09/20/19 at 14:45; Stop 09/22/19 at 09:44; Status DC Lorazepam (Ativan Inj) 2 mg PRN Q1HR PRN IV For CIWA 8-14 Last administered on 09/25/19at 05:32; Start 09/20/19 at 14:45; Stop 09/25/19 at 11:05; Status DC Lorazepam (Ativan Inj) 4 mg PRN Q1HR PRN IV For CIWA 15 or greater; Start 09/20/19 at 14:45; Stop 09/22/19 at 09:44; Status DC Haloperidol Lactate (Haldol Inj) 5 mg PRN Q4HRS PRN IVP Hallucinatns,Confusn,Delirium; Start 09/20/19 at 14:45 Diphenhydramine HCl (Benadryl) 25 mg PRN Q15MIN PRN IVP EPS symptoms 2'Haldol admin; Start 09/20/19 at 14:45 Clonidine HCl (Catapres) 0.1 mg PRN Q1HR PRN PO SBP > 180 or DBP > 100, MRX3 Last administered on 09/20/19at 16:30; Start 09/20/19 at 14:45 Lorazepam (Ativan Inj) 2 mg PRN Q15MIN PRN IV SEE COMMENTS; Start 09/20/19 at 14:45; Stop 09/21/19 at 10:46; Status DC Multivitamins 10 ml/Thiamine HCl 100 mg/Folic Acid 1 mg/Sodium Chloride 1,011.2 ml @ 100 mls/ hr DAILY IV ; Start 09/21/19 at 09:00; Stop 09/25/19 at 19:07; Status UNV Multivitamins (Thera M Plus) 1 tab DAILY PO ; Start 09/25/19 at 09:00; Status UNV Folic Acid (Folic Acid) 1 mg DAILY PO ; Start 09/25/19 at 09:00; Status UNV Thiamine HCl 100 mg/Dextrose 51 ml @ 100 mls/hr DAILY IV ; Start 09/25/19 at 09:00; Stop 09/29/19 at 09:31; Status UNV Lorazepam (Ativan Inj) 2 mg PRN Q1HR PRN IV For CIWA 8-14; Start 09/20/19 at 14:45; Status UNV Lorazepam (Ativan Inj) 4 mg PRN Q1HR PRN IV For CIWA 15 or greater; Start 09/20/19 at 14:45; Status UNV Diphenhydramine HCl (Benadryl) 25 mg PRN Q15MIN PRN IVP EPS symptoms 2'Haldol admin; Start 09/20/19 at 14:45; Status UNV Morphine Sulfate (Morphine Sulfate) 2 mg PRN Q3HRS PRN IV PAIN; Start 09/20/19 at 14:45; Status UNV Acetaminophen (Tylenol) 500 mg PRN Q6HRS PRN PO MILD PAIN / TEMP; Start 09/20/19 at 14:45; Status UNV Ondansetron HCl (Zofran) 4 mg PRN Q6HRS PRN IVP NAUSEA/VOMITING; Start 09/20/19 at 14:45; Status UNV Sodium Chloride 1,000 ml @ 125 mls/hr 1X ONCE IV ; Start 09/20/19 at 14:45; Stop 09/20/19 at 14:57; Status DC Multivitamins 10 ml/Thiamine HCl 100 mg/Folic Acid 1 mg/Sodium Chloride 1,011.2 ml @ 1,000.088 mls/hr 1X ONCE IV Last administered on 09/20/19at 08:00; Start 09/20/19 at 08:00; Stop 09/20/19 at 16:59; Status DC Morphine Sulfate (Morphine Sulfate) 2 mg ONCE ONCE IVP ; Start 09/20/19 at 04:00; Stop 09/20/19 at 16:58; Status DC Ondansetron HCl (Zofran) 4 mg ONCE ONCE IVP ; Start 09/20/19 at 04:00; Stop 09/20/19 at 16:58; Status DC Sodium Chloride 1,000 ml @ 1,000 mls/hr Q1H ONCE IV ; Start 09/20/19 at 04:00; Stop 09/20/19 at 16:58; Status DC Sodium Bicarbonate 150 meq/Sterile Water 1,150 ml @ 150 mls/hr Q7H40M IV Last administered on 09/26/19at 06:09; Start 09/21/19 at 10:45 Oxycodone/ Acetaminophen (Percocet 5/325) 1 tab PRN Q4HRS PRN PO MODERATE- SEVERE PAIN Last administered on 09/26/19at 07:45; Start 09/21/19 at 10:45 Cefazolin Sodium (Ancef) 1 gm STK-MED ONCE IVP ; Start 09/20/19 at 08:00; Stop 09/22/19 at 09:01; Status DC Lorazepam (Ativan) 1 mg PRN Q4HRS PRN PO anxiety Last administered on 09/26/19at 08:12; Start 09/22/19 at 09:45 Nicotine (Nicoderm Cq 21mg) 1 patch DAILY TD Last administered on 09/26/19at 08:12; Start 09/22/19 at 09:45 Gabapentin (Neurontin) 100 mg TID PO Last administered on 09/26/19at 08:11; Start 09/22/19 at 12:00 Propofol 20 ml @ As Directed STK-MED ONCE IV ; Start 09/20/19 at 06:58; Stop 09/23/19 at 09:43; Status DC Lidocaine HCl (Lidocaine Pf 2% Vial) 5 ml STK-MED ONCE .ROUTE ; Start 09/20/19 at 06:58; Stop 09/23/19 at 09:43; Status DC Fentanyl Citrate (Fentanyl 2ml Vial) 100 mcg STK-MED ONCE .ROUTE ; Start 09/20/19 at 06:59; Stop 09/23/19 at 09:43; Status DC Cefazolin Sodium (Ancef) 1 gm STK-MED ONCE IVP ; Start 09/20/19 at 07:52; Stop 09/23/19 at 09:43; Status DC Sevoflurane (Ultane) 30 ml STK-MED ONCE IH ; Start 09/20/19 at 07:52; Stop 09/23/19 at 09:43; Status DC Dexamethasone Sodium Phosphate (Decadron) 4 mg STK-MED ONCE .ROUTE ; Start 09/20/19 at 07:54; Stop 09/23/19 at 09:43; Status DC Phenylephrine HCl (PHENYLEPHRINE in 0.9% NACL PF) 1 mg STK-MED ONCE IV ; Start 09/20/19 at 07:58; Stop 09/23/19 at 09:43; Status DC Hydromorphone HCl (Dilaudid) 2 mg STK-MED ONCE .ROUTE ; Start 09/20/19 at 08:28; Stop 09/23/19 at 09:43; Status DC Ondansetron HCl (Zofran) 4 mg STK-MED ONCE .ROUTE ; Start 09/20/19 at 08:29; Stop 09/23/19 at 09:44; Status DC Lidocaine HCl (Lidocaine 1% 20ml Vial) 20 ml STK-MED ONCE .ROUTE ; Start 09/20/19 at 05:06; Stop 09/23/19 at 09:44; Status DC Ondansetron HCl (Zofran) 4 mg STK-MED ONCE .ROUTE ; Start 09/20/19 at 05:06; Stop 09/23/19 at 09:44; Status DC Morphine Sulfate (Morphine Sulfate) 4 mg STK-MED ONCE .ROUTE ; Start 09/20/19 at 05:07; Stop 09/23/19 at 09:44; Status DC Sodium Chloride (NORMAL SALINE FLUSH for STERILE FIELD) 10 ml STK-MED ONCE .ROUTE ; Start 09/20/19 at 05:19; Stop 09/23/19 at 09:44; Status DC Multivitamins (Thera M Plus) 1 tab DAILY PO Last administered on 09/26/19at 08:12; Start 09/24/19 at 09:00 Thiamine Mononitrate (Vitamin B-1) 100 mg DAILY PO Last administered on 09/26/19 at 08:12; Start 09/24/19 at 09:00 Folic Acid (Folic Acid) 1 mg DAILY PO Last administered on 09/26/19at 08:12; Start 09/24/19 at 09:00 Magnesium Sulfate 100 ml @ 25 mls/hr 1X ONCE IV Last administered on 09/25/19at 13:28; Start 09/25/19 at 11:30; Stop 09/25/19 at 15:29; Status DC Active Scripts Active Gabapentin (Gabapentin) 100 Mg Capsule 100 Mg PO TID 30 Days Percocet 5-325 Mg Tablet (Oxycodone/Acetaminophen) 1 Each Tablet 1 Tab PO PRN Q4HRS PRN 6 Days Vitals/I & O Vital Sign - Last 24 Hours 09/25/19 09/25/19 09/25/19 09/25/19 11:06 11:10 14:56 15:02 Temp 98.3 97.3 98.3 97.3 Pulse 77 71 Resp 18 20 B/P (MAP) 119/64 (82) 119/71 (87) Pulse Ox 96 95 O2 Delivery Room Air Room Air Room Air Room Air 09/25/19 09/25/19 09/25/19 09/25/19 16:00 19:00 20:00 23:00 Temp 98.7 99.4 98.7 99.4 Pulse 89 80 Resp 16 16 B/P (MAP) 115/69 (84) 122/73 (89) Pulse Ox 96 92 O2 Delivery Room Air Room Air 09/26/19 09/26/19 09/26/19 03:00 07:00 08:45 Temp 98.5 98.0 98.5 98.0 Pulse 88 77 Resp 16 16 B/P (MAP) 119/76 (90) 127/73 (91) Pulse Ox 95 100 O2 Delivery Room Air Room Air Intake and Output 09/25/19 09/25/19 09/26/19 15:00 23:00 07:00 Intake Total 1450 ml 340 ml 600 ml Balance 1450 ml 340 ml 600 ml PALOMA CHENG MD Sep 26, 2019 10:31
--- NOTE | 2019-09-26 10:33 | PDOC3 ---
Discharge Summary Visit Information Date of Admission: Sep 20, 2019 Date of Discharge: Sep 26, 2019 Admitting Diagnosis: Right lower extremity compartment syndrome Final Diagnosis Right lower extremity compartment syndrome Brief Hospital Course Allergies Allergies Coded Allergies Type Severity Reaction Last Updated Verified No Known Drug Allergies 09/20/19 No Vital Signs Vital Signs Date Time Temp Pulse Resp B/P (MAP) Pulse Ox O2 Delivery O2 Flow Rate FiO2 09/26/19 08:45 Room Air 09/26/19 07:00 98.0 77 16 127/73 (91) 100 98.0 Lab Results Laboratory Tests Test 09/25/19 06:45 Sodium Level 142 mmol/L (136-145) Potassium Level 3.5 mmol/L (3.5-5.1) Chloride Level 100 mmol/L (98-107) Carbon Dioxide Level 40 mmol/L (21-32) Anion Gap 2 (6-14) Blood Urea Nitrogen 14 mg/dL (7-20) Creatinine 0.8 mg/dL (0.6-1.0) Estimated GFR (Cockcroft-Gault) 76.2 BUN/Creatinine Ratio 18 (6-20) Glucose Level 135 mg/dL (70-99) Calcium Level 8.7 mg/dL (8.5-10.1) Total Bilirubin 0.4 mg/dL (0.2-1.0) Aspartate Amino Transf (AST/SGOT) 321 U/L (15-37) Alanine Aminotransferase (ALT/SGPT) 190 U/L (14-59) Alkaline Phosphatase 72 U/L (46-116) Creatine Kinase 5456 U/L (26-192) Total Protein 4.4 g/dL (6.4-8.2) Albumin 1.9 g/dL (3.4-5.0) Albumin/Globulin Ratio 0.8 (1.0-1.7) Brief Hospital Course Ms Calderón is a 49 yo F with no past medical history who unfortunately abuses alcohol today admitted 09/20/2019 after being found down for unknown time, [place] [address] and was unable to feel her right leg which was swollen and tense. No headache no chest pain, no palpitations no nausea or vomiting. S/p Right lower leg fasciotomy with Dr. Shook 09/20/2019. 09/20: CPK 04280. LFTs up 09/21: She is asking for a cigarette today. Cr stable at 1.3. CK and LFTs pending. She tells me she thinks she has some sensation back in her toes. No CP or SOB. 09/22: Pain in foot today, still with muscular weakness, [place] [address], AST 494, ALT 209, Cr 1. No CP or SOB. She really wants to leave to smoke. 09/23: Overnight tolerated bicarb gtt well. CK 8620. AST 379, ALT 184. She is ask ing if she will ever get feeling all the way back. Able to move toes. No CP or SOB. 09/24: CK 5456 today. Feeling better, still unable to dorsiflex. She understands peroneal nerve damage probably occurred when she was down. No SOB or CP. D/w ortho need for wound vac and f/u outpatient in 1 week in the office for eventual consideration of skin grafting. Wound vac in place, plans for home wound vac, home health. She is feeling well, wants to go home. Really asking for a cigarette. No SOB or CP. Problem list: Compartment syndrome status post surgical decompression Alcohol abuse disorder, concern for withdrawl, Leukoctosis Erythrocytosis from dehydration Acute renal failure secondary to rhabdomyolisis Transaminitis. poss rhabdo or etOH abuse, Lactic acidosis Consultants: Ortho Plan: pain management [facility] protocol - will add gabapentin per new recommendations Nicotine patch D/w ortho need for wound vac and f/u outpatient in 1 week in the office for eventual consideration of skin grafting. Discharge Information Condition at Discharge: Improved Follow Up: Weeks (1) Disposition/Orders: D/C to Home w/ HH Scheduled Gabapentin (Gabapentin ) 100 Mg Capsule, 100 MG PO TID for Neuropathy for 30 Days, #90 Prescribed by: PALOMA CHENG MD on 09/26/19 1023 Scheduled PRN Oxycodone/Apap 5-325 (Percocet 5-325 Mg Tablet ) 1 Each Tablet, 1 TAB PO PRN Q4HRS PRN for MODERATE-SEVERE PAIN for 6 Days, #15 Prescribed by: PALOMA CHENG MD on 09/26/19 1023 PALOMA CHENG MD Sep 26, 2019 10:33
--- NOTE | 2019-09-26 10:56 | NUR ---
SW following. Discussed with RN, pt discharging home today with [facility] and [facility] wound vac. RN notified.
[2019-09-26 11:00] VITALS: BP 104/65
--- NOTE | 2019-09-26 14:46 | NUR ---
Wound Care [place] vac placed as pt is discharging today. Pt educated on vac protocols including how to change canister, fix air leaks and how to charge vac. Pt educated on wet to dry dressing in case of alarm greater than 2 hours. Pt will be seen in OP dept on and at home on Sunday with [facility].
== END 2019-09-26 14:58 | disposition home health service (06) | DRG 981 ==
LOC: ER 04:04 → 4 NORTH 05:57
PROVIDERS: ADMIT Internal Medicine; ATTEND Internal Medicine
PROC: 0KNS0ZZ Release Right Lower Leg Muscle, Open Approach (ICD-10-PCS; 2019-09-20)
PROC: 0KNS0ZZ Release Right Lower Leg Muscle, Open Approach (ICD-10-PCS; 2019-09-20)
PROC: 0KNS0ZZ Release Right Lower Leg Muscle, Open Approach (ICD-10-PCS; 2019-09-20)
PROC: 0KNS0ZZ Release Right Lower Leg Muscle, Open Approach (ICD-10-PCS; principal; 2019-09-20 07:00)
DX: T79.A21A Traumatic compartment syndrome of right lower extremity, initial encounter (principal); N17.0 Acute kidney failure with tubular necrosis; M62.82 Rhabdomyolysis; E87.2 Acidosis; E86.0 Dehydration; D75.1 Secondary polycythemia; Z90.711 Acquired absence of uterus with remaining cervical stump; W18.39XA Other fall on same level, initial encounter; F10.129 Alcohol abuse with intoxication, unspecified
CPT/HCPCS: 36415; 70450; 71045; 73502; 73590; 73610; 80048; 80053; 80076; 82550; 82962; 83605; 83735; 84100; 85025; 85379; 85610; 85730; 93926; 93971; A7015; J0690; J1100; J1170; J2001; J2060; J2270; J2370; J2405; J2704; J3010; J3411; J3475; J3490; J7030; 97110; 97116; 97530; 97535; 99285-25; G0378

== ENCOUNTER 2021-05-03 14:18 | Emergency (ER) | payer SELFPAY ==
[~2021-05-03] VITALS: Ht 160 cm; Wt 68.0 kg
[~2021-05-03 14:18] MED LIST changes: +GABA-585 PO; -IV NORMAL SALINE 1000ML BAG 1,000 ML IV ONE; -MORPHINE SULFATE 2 MG/ML VIAL. IVP ONE; -ONDANSETRON PF 4 MG/2 ML VIAL. IVP ONE; +OXYC1TAB15 PO
[2021-05-03] MEDS ORDERED: IBUPROFEN 200 MG TABLET. PO ONE (14:30)
[2021-05-03] MEDS ORDERED: ACETAMINOPHEN 325 MG TABLET. PO ONE (14:30)
[2021-05-03] MEDS ORDERED: DIPH,PERTUSS(ACELL),TET VAC/PF 0.5 ML SYRINGE. VAX IM ONE (14:30)
[2021-05-03 14:56] LABS: BASO # 0.1 x10^3/uL (0.0-0.2); BASO % 1 % (0-3); EOS % 1 % (0-3); HEMATOCRIT 42.3 % (36.0-47.0); HEMOGLOBIN 14.4 g/dL (12.0-15.5); LYMPH # 1.7 x10^3/uL (1.0-4.8); LYMPH % 18 % (24-48); MEAN CORPUSCULAR HEMOGLOBIN 31 pg (25-35); MEAN CORPUSCULAR HGB CONC 34 g/dL (31-37); MEAN CORPUSCULAR VOLUME 90 fL (79-100); MONO # 0.5 x10^3/uL (0.0-1.1); MONO % 6 % (0-9); NEUT # 7.3 x10^3/uL (1.8-7.7); NEUT % 75 % (31-73); PLATELET COUNT 295 x10^3/uL (140-400); RED BLOOD COUNT 4.71 x10^6/uL (3.50-5.40); RED CELL DISTRIBUTION WIDTH 13.4 % (11.5-14.5); WHITE BLOOD COUNT 9.7 x10^3/uL (4.0-11.0)
[2021-05-03 15:16] LABS: CALCIUM 8.9 mg/dL (8.5-10.1); CREATININE 0.7 mg/dL (0.6-1.0); GFR 88.6; POTASSIUM 3.6 mmol/L (3.5-5.1)
--- NOTE | 2021-05-03 15:16 | RAD ---
EXAM: Right hand, 3 views. HISTORY: Puncture wound. COMPARISON: None. FINDINGS: 3 views of the right hand are obtained. There is no fracture, dislocation or subluxation. T here is a 3 x 1 mm faint linear density adjacent to the trapezium, possibly due to a calcification or tiny foreign body. IMPRESSION: 1. No acute osseous finding. 2. Tiny soft tissue calcification or foreign body adjacent to the trapezium. Electronically signed by: Mary Anne Ibarra MD (05/03/2021 3:14 PM) [id number]
[2021-05-03 15:17] LABS: C-REACTIVE PROTEIN 3.4 mg/L (0-3.3)
--- NOTE | 2021-05-03 15:35 | PHYS DOC ---
Past Medical History Past Surgical History: Hysterectomy Smoking Status: Current Every Day Smoker General Adult EDM: Chief Complaint: HAND PROBLEM HPI: HPI: Patient is a 50-year-old female presents to the emergency department complaining of right hand pain since last night approximately 2300 when she reportedly slipped on some mud and landed right hand first onto a shaheen nail. Patient reports she pulled the rescue nail from the palm of her hand. Washed with soap and water, states it did not hurt at that time. Patient reports today it became swollen and painful so she has come to the emergency department to have an evaluation. Patient denies swelling to her fingers, decreased sensation of her fingers or hand. Denies decreased movement of her wrist or fingers of the right hand. Patient denies recent fever or chills, denies shortness of breath or co ngestion. Reports her last tetanus immunization was greater than 5 years ago. Reports a 7 out of 10 pain. Patient reports smoking cigarettes, drinks alcohol occasionally, denies illicit drug use. Review of Systems: Review of Systems: 14 body systems of review of systems have been reviewed. See HPI for pertinent positives and negative responses, otherwise all other systems are negative, nonpertinent or noncontributory. Constitutional: Negative except as outlined in HPI above. Skin: Negative except as outlined in HPI above. Eyes: Negative except as outlined in HPI above. HENT: Negative except as outlined in HPI above. Respiratory: Negative except as outlined in HPI above. Cardiovascular: Negative except as outlined in HPI above. GI: Negative except as outlined in HPI above. : Negative except as outlined in HPI above. Musculoskeletal: Negative except as outlined in HPI above. Integument: Negative except as outlined in HPI above. Neurologic: Negative except as outlined in HPI above. Endocrine: Negative except as outlined in HPI above. Lymphatic: Negative except as outlined in HPI above. Psychiatric: Negative except as outlined in HPI above. Heart Score: C/O Chest Pain: No Risk Factors: Risk Factors: DM, Current or recent (<one month) smoker, HTN, HLP, family history of CAD, obesity. Risk Scores: Score 0 - 3: 2.5% MACE over next 6 weeks - Discharge Home Score 4 - 6: 20.3% MACE over next 6 weeks - Admit for Clinical Observation Score 7 - 10: 72.7% MACE over next 6 weeks - Early Invasive Strategies Current Medications: Current Medications Medications (Trade) Dose Ordered Sig/Kristofer Start Time Stop Time Status Last Admin Dose Admin Acetaminophen (Tylenol) 650 mg 1X ONCE 05/03/21 14:30 05/03/21 14:33 DC 05/03/21 14:42 650 MG Diphtheria/ Tetanus/Acell Pertussis (ADACEL TDap SYRINGE) 0.5 ml ONCE ONCE 05/03/21 14:30 05/03/21 14:33 DC 05/03/21 14:41 0.5 ML Ibuprofen (Motrin) 600 mg 1X ONCE 05/03/21 14:30 05/03/21 14:33 DC 05/03/21 14:41 600 MG Allergies: Allergies: Allergies Coded Allergies Type Severity Reaction Last Updated Verified codeine Allergy Unknown 05/03/21 Yes Physical Exam: PE: Constitutional: Well developed, well nourished, no acute distress, non-toxic appearance. 50-year-old female in no apparent distress. HENT: Normocephalic, atraumatic. Eyes: Conjunctiva normal, no discharge. Neck: Normal range of motion, no stridor. Cardiovascular: No cyanosis appreciated, distal cap refill less than 2 seconds. Lungs & Thorax: Patient is in no respiratory distress, no audible adventitious lung sounds appreciated. Abdomen: Nontender, no abnormalities noted. Skin: Warm, dry, no erythema, no rash. See extremity note for focused skin examination. Back: No tenderness, no deformities. Extremities: No tenderness, no cyanosis, no clubbing, ROM intact, no edema. Except for right hand, small 2 mm in diameter abrasion wound to proximal third of the thenar eminence, no bleeding from abrasion site, mild swelling with erythema of the palmar aspect hand, distal cap refill of all 5 fingers less than 2 seconds, equal distal sensation bilaterally of fingers, full active range of movement of all fingers, full active range of motion of wrist. No lymphangitis appreciated. There is no drainage from puncture wound. No swelling of the fingers or edema of the fingers appreciated. Neurologic: Alert and oriented X 3, normal motor function, normal sensory function, no focal deficits noted. Psychologic: Affect normal, judgement normal, mood normal. Current Patient Data: Labs: Laboratory Tests Test 05/03/21 14:47 White Blood Count 9.7 x10^3/uL Red Blood Count 4.71 x10^6/uL Hemoglobin 14.4 g/dL Hematocrit 42.3 % Mean Corpuscular Volume 90 fL Mean Corpuscular Hemoglobin 31 pg Mean Corpuscular Hemoglobin Concent 34 g/dL Red Cell Distribution Width 13.4 % Platelet Count 295 x10^3/uL Neutrophils (%) (Auto) 75 % Lymphocytes (%) (Auto) 18 % Monocytes (%) (Auto) 6 % Eosinophils (%) (Auto) 1 % Basophils (%) (Auto) 1 % Neutrophils # (Auto) 7.3 x10^3/uL Lymphocytes # (Auto) 1.7 x10^3/uL Monocytes # (Auto) 0.5 x10^3/uL Eosinophils # (Auto) 0.0 x10^3/uL Basophils # (Auto) 0.1 x10^3/uL Erythrocyte Sedimentation Rate 16 Sodium Level 141 mmol/L Potassium Level 3.6 mmol/L Chloride Level 105 mmol/L Carbon Dioxide Level 27 mmol/L Anion Gap 9 Blood Urea Nitrogen 17 mg/dL Creatinine 0.7 mg/dL Estimated GFR (Cockcroft-Gault) 88.6 Glucose Level 97 mg/dL Calcium Level 8.9 mg/dL C-Reactive Protein, Quantitative 3.4 mg/L Current Medications Medications (Trade) Dose Ordered Sig/Kristofer Route PRN Reason Start Time Stop Time Status Last Admin Dose Admin Diphtheria/ Tetanus/Acell Pertussis (ADACEL TDap SYRINGE) 0.5 ml ONCE ONCE VAX IM 05/03/21 14:30 05/03/21 14:33 DC 05/03/21 14:41 Ibuprofen (Motrin) 600 mg 1X ONCE PO 05/03/21 14:30 05/03/21 14:33 DC 05/03/21 14:41 Acetaminophen (Tylenol) 650 mg 1X ONCE PO 05/03/21 14:30 05/03/21 14:33 DC 05/03/21 14:42 Trimethoprim/ Sulfamethoxazole (Bactrim Ds) 1 tab 1X ONCE PO 05/03/21 16:30 05/03/21 16:36 DC Bacitracin (Bacitracin Zinc Oint Pkt) 1 pkt 1X ONCE TP 05/03/21 16:30 05/03/21 16:36 DC Laboratory Tests Test 05/03/21 14:47 White Blood Count 9.7 x10^3/uL (4.0-11.0) Red Blood Count 4.71 x10^6/uL (3.50-5.40) Hemoglobin 14.4 g/dL (12.0-15.5) Hematocrit 42.3 % (36.0-47.0) Mean Corpuscular Volume 90 fL (79-100) Mean Corpuscular Hemoglobin 31 pg (25-35) Mean Corpuscular Hemoglobin Concent 34 g/dL (31-37) Red Cell Distribution Width 13.4 % (11.5-14.5) Platelet Count 295 x10^3/uL (140-400) Neutrophils (%) (Auto) 75 % (31-73) H Lymphocytes (%) (Auto) 18 % (24-48) L Monocytes (%) (Auto) 6 % (0-9) Eosinophils (%) (Auto) 1 % (0-3) Basophils (%) (Auto) 1 % (0-3) Neutrophils # (Auto) 7.3 x10^3/uL (1.8-7.7) Lymphocytes # (Auto) 1.7 x10^3/uL (1.0-4.8) Monocytes # (Auto) 0.5 x10^3/uL (0.0-1.1) Eosinophils # (Auto) 0.0 x10^3/uL (0.0-0.7) Basophils # (Auto) 0.1 x10^3/uL (0.0-0.2) Sodium Level 141 mmol/L (136-145) Potassium Level 3.6 mmol/L (3.5-5.1) Chloride Level 105 mmol/L (98-107) Carbon Dioxide Level 27 mmol/L (21-32) Anion Gap 9 (6-14) Blood Urea Nitrogen 17 mg/dL (7-20) Creatinine 0.7 mg/dL (0.6-1.0) Estimated GFR (Cockcroft-Gault) 88.6 Glucose Level 97 mg/dL (70-99) Calcium Level 8.9 mg/dL (8.5-10.1) C-Reactive Protein, Quantitative 3.4 mg/L (0-3.3) H Laboratory Tests 05/03/21 14:47 Laboratory Tests 05/03/21 14:47 Vital Signs: Vital Signs Date Time Temp Pulse Resp B/P (MAP) Pulse Ox O2 Delivery O2 Flow Rate FiO2 05/03/21 14:24 97.8 86 15 190/86 (120) 96 Room Air 97.8 EKG: EKG: [] Radiology/Procedures: Radiology/Procedures: PATIENT: CHRISTIANOSUNDAY Marissa ACCOUNT: [id number] : 1970 LOCATION: ER AGE: 50 SEX: F EXAM STATUS: REG ER ORD. PHYSICIAN: QUINCY WATTS APRN REASON: Puncture wound near #1 MCP joint palmar aspect rule out foreign body PROCEDURE: HAND RIGHT 3V EXAM: Right hand, 3 views. HISTORY: Puncture wound. COMPARISON: None. FINDINGS: 3 views of the right hand are obtained. There is no fracture, dislocation or subluxation. There is a 3 x 1 mm faint linear density adjacent to the trapezium, possibly due to a calcification or tiny foreign body. IMPRESSION: 1. No acute osseous finding. 2. Tiny soft tissue calcification or foreign body adjacent to the trapezium. Electronically signed by: Mary Anne Ibarra MD (05/03/2021 3:14 PM) [id number] Course & Med Decision Making: Course & Med Decision Making Pertinent Labs and Imaging studies reviewed. (See chart for details) 50-year-old female, vital signs reviewed, presents emergency department concerning right hand pain after reportedly falling on a shaheen nail that punctured the palm of her right hand. Physical examination inconsistent with patient's explanation of events, patient reports incident at approximately 2300 yesterday, patient's examination consistent with contusion that of a puncture wound, the wound was cleansed and irrigated vigorously with normal saline, there is no tracking of puncture wound, no bleeding elicited after cleansing of abrasion site, suspicious for IV drug abuse injection site, will order CBC, BMP, sed rate, ESR, x-ray to rule out foreign body or deep tissue infectious process. X-ray nonconcerning for bony fracture deep tissue infectious process, there is a small concerning area of foreign body near trapezius however patient does admit to old injury just over her trapezius site from years ago, this foreign body most likely related to this injury. Lab work unremarkable however CRP is equivocally elevated at 3.4. Discussed findings with patient, will start on Bactrim DS with mupirocin ointment to cover MRSA infectious process. Discussed with patient strict follow-up with primary care this week, will give area [facility] clinics and physician referral sheet at discharge, antibiotic use and side effects, strict return to ER precautions and concerns, patient gave verbal understanding of and is amenable to ED discharge planning. Discussed with the patient all findings and diagnostic testing as well as the need to follow-up with their primary care provider for further evaluation and treatment or return to the ED if any new or worsening symptoms. Strict return precautions were also discussed at length, the patient voiced understanding and agreement with the discharge planning. The patient was nontoxic in appearance, in no apparent distress, and hemodynamically stable at the time of disposition. Dragon Disclaimer: Dragon Disclaimer: This electronic medical record was generated, in whole or in part, using a voice recognition dictation system. Departure Departure Impression: Primary Impression: Contusion of right hand Qualified Codes: S60.221A - Contusion of right hand, initial encounter Additional Impression: Puncture wound of right hand Qualified Codes: S61.431A - Puncture wound without foreign body of right hand, initial encounter Disposition: HOME / SELF CARE / HOMELESS Condition: GOOD Referrals: NO PCP (PCP) Patient Instructions: Contusion, Puncture Wound Additional Instructions: You were seen today in the emergency department for a puncture wound to your right hand. The x-ray did not show any broken bones, your physical examination is concerning for contusion. This hand does look infected. I am starting you on 2 medications, Bactrim DS is an oral medication please take as directed until complete, mupirocin ointment you can apply topically to your injured hand at the puncture wound site as directed. I have provided you a list of primary care providers to follow-up with, please choose 1 to establish care and see this week for reevaluation of this injury. Return in 3 days after starting the antibiotic for a wound evaluation. This is a must. Thank you for visiting our Emergency Department. It was a pleasure taking care of you today in the emergency department and we appreciate you trusting us with your care. If any additional problems come up don't hesitate to return to visit us. Please follow up with your primary care provider so they can plan additional care if needed and know about the problem that you had. If symptoms worsen come back to the E mergency Department. Any concerning symptoms that start such as chest pain, shortness of air, weakness or numbness on one side of the body, running high fevers or any other concerning symptoms return to the ER. EMERGENCY DEPARTMENT GENERAL DISCHARGE INSTRUCTIONS Thank you for coming to [facility] Emergency Department (ED) today and trusting us with you care. We trust that you had a positive experience in our Emergency Department. If you wish to speak to the department management, you may call the Director at [phone]. YOUR FOLLOW UP INSTRUCTIONS ARE FOLLOWS: 1. Do you have a private Doctor? If you do not have a private doctor, please ask for a resource list of physicians or clinics that may be able to assist you with follow up care. 2. The Emergency Physicain has interpreted your x-rays. The X-Ray specialist will also review them. If there is a change in the findings, you will be notified in 48 hours when at all possible. 3. A lab test or culture has been done, your results will be reviewed and you will be notified if you need a change in treatment. ADDITIONAL INSTRUCTIONS AND INFORMATION: 1. Your care today has been supervised by a physician who is specially trained in emergency care. Many problems require more than one evaluation for a complete diagnosis and treatment. We recommend that you schedule your follow up appointment as recommended to ensure complete treatment of you illness or injury. If you are unable to obtain follow up care and continue to have a problem, or if your condition worsens, we recommend that you return to the ED. 2. We are not able to safely determine your condition over the phone nor are we able to give sound medical advice over the phone. For these safety reasons, if you call for medical advice we will ask you to come to the ED for further evaluation. 3. If you have any questions regarding these discharge instructions please call the ED at [phone]. SAFETY INFORMATION: In the interest of safety, wellness, and injury prevention; we encourage you to wear your sealbelt, if you smoke; quite smoking, and we encourage family to use a protective helmet for bicycling and other sporting events that present an increased risk for head injury. IF YOUR SYMPTOMS WORSEN OR NEW SYMPTOMS DEVELOP, OR YOU HAVE CONCERNS ABOUT YOUR CONDITION; OR IF YOUR CONDITION WORSENS WHILE YOU ARE WAITING FOR YOUR FOLLOW UP APPOINTMENT; EITHER CONTACT YOUR PRIMARY CARE DOCTOR, THE PHYSICIAN WHOSE NAME AND NUMBER YOU WERE GIVEN, OR RETURN TO THE ED IMMEDIATELY. Scripts Mupirocin (MUPIROCIN OINTMENT) 22 Gm Oint...g. 1 EVAN TP TID for WOUND CARE, #1 TUBE 0 Refills Prov: QUINCY WATTS APRN 05/03/21 Sulfamethoxazole/Trimethoprim (BACTRIM DS TABLET) 1 Each Tablet 1 TAB PO BID for hand infection for 7 Days, #14 TAB 0 Refills Prov: QUINCY WATTS APRN 05/03/21 QUINCY WATTS APRN May 03, 2021 15:35
[2021-05-03] MEDS ORDERED: BACITRACIN TOPICAL OINT PACKET. TP ONE (16:30)
[2021-05-03] MEDS ORDERED: SMZ/TMP 800/160MG TABLET. PO ONE (16:30)
[2021-05-03] MEDS ORDERED: SULF1TAB24 PO (16:38)
[2021-05-03] MEDS ORDERED: MUPI22OI2 TP (16:38)
[2021-05-03 17:25] VITALS: BP 152/70
== END 2021-05-03 17:25 | disposition home or self-care (01) ==
LOC: ER 14:18
DX: S60.221A Contusion of right hand, initial encounter (principal); F17.200 Nicotine dependence, unspecified, uncomplicated; Z88.5 Allergy status to narcotic agent; W01.0XXA Fall on same level from slipping, tripping and stumbling without subsequent striking against object, initial encounter; Y93.89 Activity, other specified; Y92.89 Other specified places as the place of occurrence of the external cause; Y99.8 Other external cause status
CPT/HCPCS: 36415; 73130; 80048; 85025; 85651; 86140; 90471; 90715; 99284